=== PATIENT | female | born 1935 | race Caucasian/White ===

== ENCOUNTER 2020-05-24 09:32 | Outpatient (REF) | payer MEDICARE, SELFPAY ==
[2020-05-24 10:57] LABS: Alanine Aminotransferase 33 U/L (0-31); Anion Gap 12 (12-20); Aspartate Amino Transferase 33 U/L (5-31); Blood Urea Nitrogen 17 mg/dL (9-16); Calcium 9.5 mg/dL (8.4-10.2); Carbon Dioxide 33 mmol/L (22-29); Chloride 96 mmol/L (96-108); Cholesterol 195 mg/dL; Estimated Glomerular Filt Rate > 60; Glucose Fasting 119 mg/dL (60-99); HDL Cholesterol 63 mg/dL; LDL Cholesterol Calculated 112 mg/dl; Potassium 3.6 mmol/L (3.3-5.1); Sodium 137 mmol/L (135-145); Triglycerides 102 mg/dL
[2020-05-24 11:05] LABS: Free T4 (Free Thyroxine) 1.29 ng/dL (0.71-1.85); Thyroid Stimulating Hormone 3.63 uIU/mL (0.32-4.0)
== END 2020-05-24 09:33 | disposition home or self-care (01) ==
LOC: HO.10HDL 09:32
PROVIDERS: Absent Provider Internal Medicine Hypertension Specialist; Visit Provider Internal Medicine
DX: R03.0 Elevated blood-pressure reading, without diagnosis of hypertension (principal); E03.9 Hypothyroidism, unspecified; M85.80 Other specified disorders of bone density and structure, unspecified site; E78.00 Pure hypercholesterolemia, unspecified
CPT/HCPCS: 36415; 80048; 80061; 84439; 84443; 84450; 84460

== ENCOUNTER 2020-08-31 08:52 | Outpatient (REF) | payer MEDICARE, SELFPAY ==
--- NOTE | ~2020-08-31 | MM_ITS ---
EXAMINATION: MM SCREENING DIGITAL BREAST TOMOSYNTHESIS, BILATERAL CLINICAL INFORMATION: Screening. Asymptomatic. The lifetime risk of breast cancer based on the Tyrer-Cuzick Model is 1%. COMPARISON: Mammography: 01/04/2020, 04/30/2018, 04/03/2017 TECHNIQUE: Digital breast tomosynthesis is performed in both the craniocaudal and mediolateral oblique views along with computer-aided detection (CAD). Synthesized 2D images are generated from the tomosynthesis. Additional bilateral MLO views and exaggerated right CC view are provided. FINDINGS: There are scattered areas of fibroglandular density (ACR BI-RADS breast composition Category b). There are no significant masses, abnormal calcifications, or other abnormalities. There is a pacemaker generator overlying the upper left axilla. Parenchymal pattern is similar to prior studies. No developing density. No significant changes. MM/MM tomosynthesis screening BI IMPRESSION: No mammographic evidence of malignancy. ASSESSMENT: BI-RADS 1: Negative RECOMMENDATION: Routine annual mammography screening. This patient's information was entered into a reminder system with a target due date for their next mammogram.
== END 2020-08-31 08:53 | disposition home or self-care (01) ==
LOC: HO.MAMMO 08:52
PROVIDERS: PCP Internal Medicine; Visit Provider Internal Medicine
DX: Z12.31 Encounter for screening mammogram for malignant neoplasm of breast (principal)
CPT/HCPCS: 77063; 77067

== ENCOUNTER 2020-09-29 09:10 | Outpatient (REF) | payer MEDICARE, SELFPAY ==
[2020-09-29 10:53] LABS: Estimated Average Glucose 128 mg/dL; Hemoglobin A1c % 6.1 %
[2020-09-29 11:01] LABS: Alanine Aminotransferase 22 U/L (0-31); Anion Gap 13 (12-20); Aspartate Amino Transferase 32 U/L (5-31); Blood Urea Nitrogen 14 mg/dL (9-16); Calcium 9.8 mg/dL (8.4-10.2); Carbon Dioxide 31 mmol/L (22-29); Chloride 97 mmol/L (96-108); Cholesterol 169 mg/dL; Estimated Glomerular Filt Rate > 60; Glucose Fasting 109 mg/dL (60-99); HDL Cholesterol 65 mg/dL; LDL Cholesterol Calculated 86 mg/dl; Potassium 4.1 mmol/L (3.3-5.1); Sodium 137 mmol/L (135-145); Triglycerides 92 mg/dL
[2020-09-29 11:24] LABS: Free T4 (Free Thyroxine) 1.19 ng/dL (0.71-1.85); Vitamin D 25-OH Total 40.2 ng/mL (>30)
== END 2020-09-29 09:11 | disposition home or self-care (01) ==
LOC: HO.10HDL 09:10
PROVIDERS: Visit Provider Internal Medicine
DX: E03.9 Hypothyroidism, unspecified (principal); E78.00 Pure hypercholesterolemia, unspecified; I10 Essential (primary) hypertension; I48.19 Other persistent atrial fibrillation; I49.5 Sick sinus syndrome; M85.80 Other specified disorders of bone density and structure, unspecified site
CPT/HCPCS: 36415; 80048; 80061; 82306; 83036; 84439; 84443; 84450; 84460

== ENCOUNTER 2020-10-01 08:44 | Outpatient (REF) | payer MEDICARE, SELFPAY ==
--- NOTE | ~2020-10-01 | MM_ITS ---
EXAMINATION: BONE DENSITOMETRY CLINICAL INDICATION: Osteopenia. COMPARISON: Previous BD dated 07/25/2016 and baseline BD dated 08/28/2007. TECHNIQUE: Using a [employer] DXA System (software version: 13.1) manufactured by [employer], dual-energy x-ray absorptiometry was performed of the lumbar spine and right hip. Patient with left hip replacement. The images are of good technical quality. Summary results are attached. FINDINGS: AP SPINE L1-L4: Current: BMD 1.186 g/cm2, Z-score 1.9, T-score 0.0, normal, 7.1% increase from previous, 19.0% increase from baseline (<5% change is not significant). Prior: BMD 1.107 g/cm2. Baseline: BMD 0.997 g/cm2. RIGHT FEMUR, NECK: Current: BMD 0.875 g/cm2, Z-score 1.1, T-score -1.2, osteopenia. Prior: BMD 0.906 g/cm2. Baseline: BMD 0.818 g/cm2. RIGHT FEMUR, TOTAL: Current: BMD 0.976 g/cm2, Z-score 1.9, T-score -0.3, normal, 1.0% increase from previous, 7.1% increase from baseline (<5% change is not significant). Prior: BMD 0.966 g/cm2. Baseline: BMD 0.911 g/cm2. IDENTIFIED RISK FACTORS: Menopause, height loss, low calcium intake, Thiazide. HISTORY OF FRACTURE: None listed. MEDICATIONS: Calcium, vitamin D. MM/XR DEXA axial skeleton IMPRESSION: 1. DIAGNOSIS: Osteopenia based on the lowest T-score value of -1.2 in the femoral neck applying World Health Organization criteria. 2. 10-YEAR FRACTURE RISK PREDICTION, FRAX: Major osteoporotic fracture (clinical spine, forearm, hip or shoulder) 12.3%. Hip fracture 2.9%. 3. Treatment Recommendations: NOF guidelines recommend consideration for treatment in postmenopausal women and men age 50 and older presenting with the following: -A hip or vertebral (clinical or morphometric) fracture. -T-score less than or equal to -2.5 at the femoral neck or spine after appropriate evaluation to exclude secondary causes. -Low bone mass at the hip or spine and a 10-year fracture probability by FRAX of greater than or equal to 3% for hip fracture or greater than or equal to 20% for major osteoporotic fracture based on the [place] adapted WHO algorithm. 4. Other Recommendations: All treatment decisions require clinical judgment and consideration of individual patient factors, including patient preferences, comorbidities, previous drug use, risk factors not captured in the FRAX model (e.g. frailty, falls, vitamin D deficiency, increased bone turnover, interval significant decline in bone density) and possible under or overestimation of fracture risk by FRAX. Additional medical evaluation for secondary cause of low bone mineral density may be appropriate. FUTURE SCAN RECOMMENDATION: People with diagnosed cases of osteoporosis or at high risk for fracture should have regular bone mineral density tests. For patients eligible for Medicare, routine testing is allowed once every 2 years. The testing frequency can be increased to one year for patients who have rapidly progressing disease, those who are receiving or discontinuing medical therapy to restore bone mass, or have additional risk factors.
== END 2020-10-01 08:45 | disposition home or self-care (01) ==
LOC: HO.MAMMO 08:44
PROVIDERS: PCP Internal Medicine; Visit Provider Internal Medicine
DX: Z13.820 Encounter for screening for osteoporosis (principal); M85.80 Other specified disorders of bone density and structure, unspecified site; Z78.0 Asymptomatic menopausal state; Z79.899 Other long term (current) drug therapy
CPT/HCPCS: 77080

== ENCOUNTER 2021-01-20 11:27 | Outpatient (REF) | payer MEDICARE, SELFPAY ==
[2021-01-20 14:15] LABS: Anion Gap 14 (12-20); Blood Urea Nitrogen 11 mg/dL (9-16); Calcium 9.5 mg/dL (8.4-10.2); Carbon Dioxide 30 mmol/L (22-29); Chloride 97 mmol/L (96-108); Estimated Glomerular Filt Rate > 60; Potassium 3.6 mmol/L (3.3-5.1); Sodium 137 mmol/L (135-145)
== END 2021-01-20 11:28 | disposition home or self-care (01) ==
LOC: HO.10HDL 11:27
PROVIDERS: Visit Provider Internal Medicine Hypertension Specialist
DX: I10 Essential (primary) hypertension (principal)
CPT/HCPCS: 36415; 80051; 82310; 82565; 84520

== ENCOUNTER 2021-03-03 10:27 | Outpatient (REF) | payer MEDICARE, SELFPAY ==
[2021-03-03 14:35] LABS: Anion Gap 12 (12-20); Blood Urea Nitrogen 21 mg/dL (9-16); Calcium 9.7 mg/dL (8.4-10.2); Carbon Dioxide 29 mmol/L (22-29); Chloride 99 mmol/L (96-108); Estimated Glomerular Filt Rate 57; Potassium 4.5 mmol/L (3.3-5.1); Sodium 135 mmol/L (135-145)
== END 2021-03-03 10:28 | disposition home or self-care (01) ==
LOC: HO.10HDL 10:27
PROVIDERS: Visit Provider Internal Medicine Hypertension Specialist
DX: I10 Essential (primary) hypertension (principal)
CPT/HCPCS: 36415; 80051; 82310; 82565; 84520

== ENCOUNTER 2021-05-25 10:04 | Outpatient (REF) | payer MEDICARE, SELFPAY ==
[2021-05-25 14:17] LABS: Anion Gap 15 (12-20); Blood Urea Nitrogen 20 mg/dL (9-16); Calcium 9.9 mg/dL (8.4-10.2); Carbon Dioxide 28 mmol/L (22-29); Chloride 97 mmol/L (96-108); Estimated Glomerular Filt Rate 47; Glucose Random 103 mg/dL (60-115); Potassium 5.3 mmol/L (3.3-5.1); Sodium 135 mmol/L (135-145)
== END 2021-05-25 10:05 | disposition home or self-care (01) ==
LOC: HO.10HDL 10:04
PROVIDERS: Visit Provider Internal Medicine Hypertension Specialist
DX: I10 Essential (primary) hypertension (principal)
CPT/HCPCS: 36415; 80048

== ENCOUNTER 2021-06-08 10:44 | Outpatient (REF) | payer MEDICARE, SELFPAY ==
[2021-06-08 13:49] LABS: MANUAL DIFF FLAG NO
[2021-06-08 13:53] LABS: Appearance Urine CLEAR; Color Urine YELLOW; Glucose Urine UA NEG (NEG); Leukocyte Esterase Urine TRACE (NEG); Nitrite Urine NEG (NEG); Urine Blood NEG (NEG); Urine Ketones NEG (NEG); Urine Protein TRACE MG/DL (NEG-TRACE)
[2021-06-08 13:58] LABS: Basophils Absolute Auto 0.1 X10*3/uL (0.0-0.2); Basophils Percent Auto 1.2 % (0-2); Eosinophils Absolute Auto 0.1 X10*3/uL (0.0-0.4); Hematocrit 46.4 % (37.0-47.0); Hemoglobin 15.5 g/dl (12.0-16.0); Imm Gran Abs Auto 0.03 X10*3/uL (0.00-0.03); Imm Gran Pct Auto 0.4 % (0.0-0.4); Lymphocytes Absolute Auto 1.8 X10*3/uL (1.2-4.9); Lymphocytes Percent Auto 26.7 % (20-40); Mean Corpuscular HGB Conc 33.4 g/dl (31.0-35.0); Mean Corpuscular Hemoglobin 31.4 pg (27.0-33.0); Mean Corpuscular Volume 93.9 fL (80.0-98.0); Mean Platelet Volume 10.2 fL (9.4-12.3); Monocytes Absolute Auto 0.7 X10*3/uL (0.1-1.2); Monocytes Percent Auto 10.4 % (2-11); Neutrophils Absolute Auto 4.1 x10*3/uL (2.0-8.3); Neutrophils Percent Auto 59.3 % (45-73); Platelet Count 258 X10*3/uL (160-400); Red Blood Count 4.94 X10*6/uL (4.20-5.50); Red Cell Distribution Width 14.1 % (11.0-16.0); White Blood Count 6.9 X10*3/uL (4.8-10.8)
[2021-06-08 14:08] LABS: Bacteria Urine TRACE /LPF; RBC Urine 0 /HPF (0); Squamous Epithelial Cell Urine 1+ /LPF
[2021-06-08 14:20] LABS: Anion Gap 12 (12-20); Blood Urea Nitrogen 26 mg/dL (9-16); Calcium 9.8 mg/dL (8.4-10.2); Carbon Dioxide 29 mmol/L (22-29); Chloride 99 mmol/L (96-108); Estimated Glomerular Filt Rate 46; Potassium 4.5 mmol/L (3.3-5.1); Sodium 135 mmol/L (135-145)
[2021-06-08 14:31] LABS: Creatinine Urine 188.76 mg/dL; Microalbum/Creatinine Ratio Ur 12.1 ug/mg cr; Protein/Creatinine Ratio, Ur 0.08 (<0.2); Total Protein Urine Random 16 mg/dL (<12)
[2021-06-08 14:34] LABS: Vitamin D 25-OH Total 38.3 ng/mL (>30)
== END 2021-06-08 10:45 | disposition home or self-care (01) ==
LOC: HO.10HDL 10:44
PROVIDERS: Visit Provider Internal Medicine Hypertension Specialist
DX: E03.9 Hypothyroidism, unspecified (principal)
CPT/HCPCS: 36415; 80051; 81001; 82043; 82306; 82310; 82565; 84156; 84520; 85025; 87086

== ENCOUNTER 2021-07-01 15:55 | Outpatient (REF) | payer MEDICARE, SELFPAY ==
--- NOTE | ~2021-07-01 | XR_ITS ---
EXAMINATION: LEFT HAND AND WRIST CLINICAL INFORMATION: Pain COMPARISON: None TECHNIQUE: 3 views of the left hand and wrist FINDINGS: There is a transverse impacted fracture of the left distal radius. There is dorsal angulation of the distal radius with respect to the more proximal shaft. There is an ulnar styloid fracture. There is arthritis at the IP joints. There is soft tissue swelling over the wrist. XR/XR hand wrist LT IMPRESSION: Left distal radius and ulnar styloid fractures.
== END 2021-07-01 15:56 | disposition home or self-care (01) ==
LOC: HO.HMGCX 15:55
PROVIDERS: Visit Provider Physician Assistant Medical
DX: M25.532 Pain in left wrist (principal)
CPT/HCPCS: 73110; 73130

== ENCOUNTER 2021-08-03 09:14 | Outpatient (REF) | payer MEDICARE, SELFPAY ==
[2021-08-03 10:29] LABS: Hematocrit 44.8 % (37.0-47.0); Hemoglobin 14.6 g/dl (12.0-16.0); Mean Corpuscular HGB Conc 32.6 g/dl (31.0-35.0); Mean Corpuscular Hemoglobin 31.7 pg (27.0-33.0); Mean Corpuscular Volume 97.4 fL (80.0-98.0); Mean Platelet Volume 9.9 fL (9.4-12.3); Platelet Count 270 X10*3/uL (160-400); Red Cell Distribution Width 14.3 % (11.0-16.0); White Blood Count 6.9 X10*3/uL (4.8-10.8)
[2021-08-03 10:43] LABS: Alanine Aminotransferase 22 U/L (0-31); Albumin Level 4.2 g/dL (3.5-5.0); Alkaline Phosphatase 78 U/L (39-117); Anion Gap 14 (12-20); Aspartate Amino Transferase 29 U/L (5-31); Bilirubin Total 1.2 mg/dL (0.0-1.0); Blood Urea Nitrogen 21 mg/dL (9-16); Calcium 9.8 mg/dL (8.4-10.2); Carbon Dioxide 27 mmol/L (22-29); Chloride 98 mmol/L (96-108); Cholesterol 165 mg/dL; Estimated Glomerular Filt Rate 40; Glucose Fasting 112 mg/dL (60-99); HDL Cholesterol 56 mg/dL; LDL Cholesterol Calculated 92 mg/dl; Potassium 4.4 mmol/L (3.3-5.1); Sodium 135 mmol/L (135-145); Total Protein 7.3 g/dL (6.5-8.0); Triglycerides 87 mg/dL
[2021-08-03 10:53] LABS: Creatinine Urine 240.46 mg/dL; Microalbum/Creatinine Ratio Ur 29.9 ug/mg cr
[2021-08-03 11:02] LABS: TSH reflex Free T4 2.82 uIU/mL (0.32-4.0)
[2021-08-03 11:10] LABS: Estimated Average Glucose 126 mg/dL
== END 2021-08-03 09:15 | disposition home or self-care (01) ==
LOC: HO.10HDL 09:14
PROVIDERS: Visit Provider Physician Assistant
DX: I10 Essential (primary) hypertension (principal); E03.9 Hypothyroidism, unspecified; E78.00 Pure hypercholesterolemia, unspecified; R73.01 Impaired fasting glucose
CPT/HCPCS: 36415; 80053; 80061; 82043; 83036; 84443; 85027

== ENCOUNTER 2021-10-10 09:27 | Outpatient (REF) | payer MEDICARE, SELFPAY ==
[2021-10-10 10:47] LABS: Hematocrit 45.9 % (37.0-47.0); Hemoglobin 15.1 g/dl (12.0-16.0); Mean Corpuscular HGB Conc 32.9 g/dl (31.0-35.0); Mean Corpuscular Hemoglobin 31.5 pg (27.0-33.0); Mean Corpuscular Volume 95.6 fL (80.0-98.0); Mean Platelet Volume 9.7 fL (9.4-12.3); Platelet Count 252 X10*3/uL (160-400); Red Cell Distribution Width 12.7 % (11.0-16.0); White Blood Count 5.6 X10*3/uL (4.8-10.8)
[2021-10-10 10:56] LABS: Estimated Average Glucose 128 mg/dL; Hemoglobin A1c % 6.1 %
[2021-10-10 11:06] LABS: Alanine Aminotransferase 22 U/L (0-31); Albumin Level 4.3 g/dL (3.5-5.0); Alkaline Phosphatase 80 U/L (39-117); Anion Gap 11 (12-20); Aspartate Amino Transferase 29 U/L (5-31); Blood Urea Nitrogen 24 mg/dL (9-16); Calcium 9.7 mg/dL (8.4-10.2); Carbon Dioxide 28 mmol/L (22-29); Chloride 99 mmol/L (96-108); Cholesterol 184 mg/dL; Estimated Glomerular Filt Rate 42; Glucose Fasting 112 mg/dL (60-99); HDL Cholesterol 56 mg/dL; LDL Cholesterol Calculated 109 mg/dl; Potassium 4.4 mmol/L (3.3-5.1); Sodium 134 mmol/L (135-145); Total Protein 7.4 g/dL (6.5-8.0); Triglycerides 98 mg/dL
[2021-10-10 11:30] LABS: TSH reflex Free T4 2.22 uIU/mL (0.32-4.0)
== END 2021-10-10 09:28 | disposition home or self-care (01) ==
LOC: HO.10HDL 09:27
PROVIDERS: Absent Provider Internal Medicine Hypertension Specialist; Visit Provider Physician Assistant
DX: E03.9 Hypothyroidism, unspecified (principal); E78.00 Pure hypercholesterolemia, unspecified; I10 Essential (primary) hypertension
CPT/HCPCS: 36415; 80053; 80061; 83036; 84443; 85027

== ENCOUNTER 2021-10-11 09:40 | Outpatient (REF) | payer MEDICARE, SELFPAY ==
[2021-10-11 10:44] LABS: MANUAL DIFF FLAG NO
[2021-10-11 10:53] LABS: Basophils Percent Auto 0.8 % (0-2); Eosinophils Absolute Auto 0.2 X10*3/uL (0.0-0.4); Hematocrit 44.8 % (37.0-47.0); Hemoglobin 14.9 g/dl (12.0-16.0); Imm Gran Abs Auto 0.02 X10*3/uL (0.00-0.03); Imm Gran Pct Auto 0.4 % (0.0-0.4); Lymphocytes Absolute Auto 1.6 X10*3/uL (1.2-4.9); Lymphocytes Percent Auto 30.6 % (20-40); Mean Corpuscular HGB Conc 33.3 g/dl (31.0-35.0); Mean Corpuscular Hemoglobin 31.8 pg (27.0-33.0); Mean Corpuscular Volume 95.5 fL (80.0-98.0); Mean Platelet Volume 9.8 fL (9.4-12.3); Monocytes Absolute Auto 0.6 X10*3/uL (0.1-1.2); Monocytes Percent Auto 11.9 % (2-11); Neutrophils Absolute Auto 2.7 x10*3/uL (2.0-8.3); Neutrophils Percent Auto 53.3 % (45-73); Platelet Count 232 X10*3/uL (160-400); Red Blood Count 4.69 X10*6/uL (4.20-5.50); Red Cell Distribution Width 12.7 % (11.0-16.0); White Blood Count 5.1 X10*3/uL (4.8-10.8)
[2021-10-11 11:41] LABS: Anion Gap 12 (12-20); Blood Urea Nitrogen 20 mg/dL (9-16); Calcium 9.5 mg/dL (8.4-10.2); Carbon Dioxide 28 mmol/L (22-29); Chloride 99 mmol/L (96-108); Estimated Glomerular Filt Rate 47; Potassium 4.6 mmol/L (3.3-5.1); Sodium 134 mmol/L (135-145)
[2021-10-11 14:00] LABS: Appearance Urine CLEAR; Color Urine YELLOW; Glucose Urine UA NEG (NEG); Leukocyte Esterase Urine 1+ (NEG); Nitrite Urine NEG (NEG); Urine Blood TRACE (NEG); Urine Ketones NEG (NEG); Urine Protein NEG (NEG-TRACE)
[2021-10-11 14:18] LABS: Renal Epithelial Cells Urine TRACE /LPF; Squamous Epithelial Cell Urine TRACE /LPF
[2021-10-11 14:20] LABS: RBC Urine 0 /HPF (0)
[2021-10-11 14:25] LABS: Creatinine Urine 188.61 mg/dL; Protein/Creatinine Ratio, Ur 0.08 (<0.2); Total Protein Urine Random 16 mg/dL (<12)
== END 2021-10-11 09:41 | disposition home or self-care (01) ==
LOC: HO.10HDL 09:40
PROVIDERS: Visit Provider Internal Medicine Hypertension Specialist
DX: N18.32 Chronic kidney disease, stage 3b (principal)
CPT/HCPCS: 36415; 80051; 81001; 82043; 82310; 82565; 84156; 84520; 85025

== ENCOUNTER 2022-03-21 09:41 | Outpatient (REF) | payer MEDICARE, SELFPAY ==
[2022-03-21 10:36] LABS: Hematocrit 44.5 % (37.0-47.0); Hemoglobin 14.5 g/dl (12.0-16.0); Mean Corpuscular HGB Conc 32.6 g/dl (31.0-35.0); Mean Corpuscular Hemoglobin 30.5 pg (27.0-33.0); Mean Corpuscular Volume 93.5 fL (80.0-98.0); Mean Platelet Volume 9.8 fL (9.4-12.3); Platelet Count 248 X10*3/uL (160-400); Red Blood Count 4.76 X10*6/uL (4.20-5.50); Red Cell Distribution Width 13.6 % (11.0-16.0); White Blood Count 5.5 X10*3/uL (4.8-10.8)
[2022-03-21 11:46] LABS: Alanine Aminotransferase 24 U/L (0-31); Albumin Level 4.1 g/dL (3.5-5.0); Alkaline Phosphatase 67 U/L (39-117); Anion Gap 12 (12-20); Aspartate Amino Transferase 31 U/L (5-31); Blood Urea Nitrogen 20 mg/dL (9-16); Calcium 9.4 mg/dL (8.4-10.2); Carbon Dioxide 28 mmol/L (22-29); Chloride 101 mmol/L (96-108); Cholesterol 169 mg/dL; Estimated Glomerular Filt Rate 48; Glucose Fasting 111 mg/dL (60-99); HDL Cholesterol 56 mg/dL; LDL Cholesterol Calculated 95 mg/dl; Potassium 4.3 mmol/L (3.3-5.1); Sodium 137 mmol/L (135-145); Triglycerides 94 mg/dL
[2022-03-21 12:00] LABS: TSH reflex Free T4 2.71 uIU/mL (0.32-4.0)
[2022-03-21 12:48] LABS: Bilirubin Total 1.1 mg/dL (0.0-1.0)
[2022-03-21 15:04] LABS: Creatinine Urine 264.48 mg/dL; Microalbum/Creatinine Ratio Ur 35.5 ug/mg cr; Total Protein Urine Random 28 mg/dL (<12)
== END 2022-03-21 09:42 | disposition home or self-care (01) ==
LOC: HO.10HDL 09:41
PROVIDERS: Absent Provider Internal Medicine Hypertension Specialist; Visit Provider Physician Assistant
DX: I12.9 Hypertensive chronic kidney disease with stage 1 through stage 4 chronic kidney disease, or unspecified chronic kidney disease (principal); N18.32 Chronic kidney disease, stage 3b; E78.00 Pure hypercholesterolemia, unspecified; I48.19 Other persistent atrial fibrillation
CPT/HCPCS: 36415; 80053; 80061; 82043; 84156; 84443; 85027

== ENCOUNTER 2022-04-19 09:19 | Outpatient (REF) | payer MEDICARE, SELFPAY ==
--- NOTE | ~2022-04-19 | MM_ITS ---
EXAMINATION: MM SCREENING DIGITAL BREAST TOMOSYNTHESIS, BILATERAL CLINICAL INFORMATION: Screening. Asymptomatic. COMPARISON: Mammography: August 31, 2020 and studies dating back to February 23, 2015 TECHNIQUE: Digital breast tomosynthesis is performed in both the craniocaudal and mediolateral oblique views along with computer-aided detection (CAD). Synthesized 2D images are generated from the tomosynthesis. FINDINGS: The breasts are heterogeneously dense, which may obscure small masses (ACR BI-RADS breast composition Category c). There are no significant masses, abnormal calcifications, or other abnormalities. MM/MM tomosynthesis screening BI IMPRESSION: No significant changes ASSESSMENT: BI-RADS 1: Negative RECOMMENDATION: Routine annual mammography screening. This patient's information was entered into a reminder system with a target due date for their next mammogram.
== END 2022-04-19 09:20 | disposition home or self-care (01) ==
LOC: HO.MAMMO 09:19
PROVIDERS: PCP Physician Assistant; Visit Provider Physician Assistant
DX: Z12.31 Encounter for screening mammogram for malignant neoplasm of breast (principal)
CPT/HCPCS: 77063; 77067

== ENCOUNTER 2022-05-23 11:58 | Outpatient (REF) | payer MEDICARE, SELFPAY ==
[2022-05-23 12:20] LABS: COVID-19 Test Positive (Negative); IDNOW Serial# 16C4AD1C
== END 2022-05-23 11:59 | disposition home or self-care (01) ==
LOC: HO.LAB 11:58
PROVIDERS: Visit Provider Internal Medicine
DX: Z20.822 Contact with and (suspected) exposure to COVID-19 (principal)
CPT/HCPCS: 87635; C9803

== ENCOUNTER 2022-08-02 09:45 | Outpatient (REF) | payer MEDICARE, SELFPAY ==
[2022-08-02 13:48] LABS: Hematocrit 47.2 % (37.0-47.0); Hemoglobin 15.6 g/dl (12.0-16.0); Mean Corpuscular HGB Conc 33.1 g/dl (31.0-35.0); Mean Corpuscular Hemoglobin 31.2 pg (27.0-33.0); Mean Corpuscular Volume 94.4 fL (80.0-98.0); Mean Platelet Volume 10.5 fL (9.4-12.3); Platelet Count 254 X10*3/uL (160-400); Red Cell Distribution Width 13.9 % (11.0-16.0); White Blood Count 6.3 X10*3/uL (4.8-10.8)
[2022-08-02 14:20] LABS: Alanine Aminotransferase 28 U/L (0-31); Albumin Level 4.1 g/dL (3.5-5.0); Alkaline Phosphatase 68 U/L (39-117); Anion Gap 9 (12-20); Aspartate Amino Transferase 31 U/L (5-31); Bilirubin Total 1.2 mg/dL (0.0-1.0); Blood Urea Nitrogen 22 mg/dL (9-16); Calcium 9.7 mg/dL (8.4-10.2); Carbon Dioxide 32 mmol/L (22-29); Chloride 101 mmol/L (96-108); Cholesterol 182 mg/dL; Estimated Glomerular Filt Rate 49; Glucose Fasting 98 mg/dL (60-99); HDL Cholesterol 55 mg/dL; LDL Cholesterol Calculated 105 mg/dl; Potassium 4.5 mmol/L (3.3-5.1); Sodium 137 mmol/L (135-145); Triglycerides 110 mg/dL
[2022-08-02 14:30] LABS: Creatinine Urine 88.16 mg/dL; Microalbum/Creatinine Ratio Ur 43.1 ug/mg cr
[2022-08-02 14:34] LABS: TSH reflex Free T4 3.22 uIU/mL (0.32-4.0)
== END 2022-08-02 09:46 | disposition home or self-care (01) ==
LOC: HO.10HDL 09:45
PROVIDERS: Visit Provider Physician Assistant
DX: E03.9 Hypothyroidism, unspecified (principal); I10 Essential (primary) hypertension; E78.00 Pure hypercholesterolemia, unspecified
CPT/HCPCS: 36415; 80053; 80061; 82043; 84443; 85027

== ENCOUNTER 2022-09-15 10:33 | Outpatient (REF) | payer MEDICARE, SELFPAY ==
[2022-09-15 13:28] LABS: MANUAL DIFF FLAG NO
[2022-09-15 13:33] LABS: Appearance Urine Hazy; Color Urine Yellow; Glucose Urine UA Negative (Negative); Leukocyte Esterase Urine Moderate (2+) (Negative); Nitrite Urine Negative (Negative); Specific Gravity - Urine 1.015 (1.005-1.025); UMIC TRIGGER UA YES; Urine Blood Negative (Negative); Urine Ketones Negative (Negative); Urine Protein Negative (Neg-Trace)
[2022-09-15 13:34] LABS: Basophils Absolute Auto 0.1 X10*3/uL (0.0-0.2); Basophils Percent Auto 1.2 % (0-2); Eosinophils Absolute Auto 0.2 X10*3/uL (0.0-0.4); Eosinophils Percent Auto 3.5 % (0-4); Hematocrit 46.6 % (37.0-47.0); Hemoglobin 15.3 g/dl (12.0-16.0); Imm Gran Abs Auto 0.02 X10*3/uL (0.00-0.03); Imm Gran Pct Auto 0.3 % (0.0-0.4); Lymphocytes Percent Auto 32.7 % (20-40); Mean Corpuscular HGB Conc 32.8 g/dl (31.0-35.0); Mean Corpuscular Hemoglobin 30.7 pg (27.0-33.0); Mean Corpuscular Volume 93.4 fL (80.0-98.0); Mean Platelet Volume 10.3 fL (9.4-12.3); Monocytes Absolute Auto 0.7 X10*3/uL (0.1-1.2); Monocytes Percent Auto 11.2 % (2-11); Neutrophils Absolute Auto 3.1 x10*3/uL (2.0-8.3); Neutrophils Percent Auto 51.1 % (45-73); Platelet Count 243 X10*3/uL (160-400); Red Blood Count 4.99 X10*6/uL (4.20-5.50); Red Cell Distribution Width 13.5 % (11.0-16.0)
[2022-09-15 13:42] LABS: Bacteria Urine None Seen (None Seen); Hyaline Casts Urine 0-2 /LPF (0-2); RBC Urine 0-2 /HPF (0-2); Renal Epithelial Cells Urine Present; Squamous Epithelial Cell Urine 0-2 /HPF (0-2)
[2022-09-15 13:51] LABS: Creatinine Urine 148.59 mg/dL; Microalbum/Creatinine Ratio Ur 16.1 ug/mg cr; Total Protein Urine Random 15 mg/dL (<12)
[2022-09-15 14:05] LABS: Anion Gap 15 (12-20); Blood Urea Nitrogen 26 mg/dL (9-16); Calcium 10.2 mg/dL (8.4-10.2); Carbon Dioxide 27 mmol/L (22-29); Chloride 98 mmol/L (96-108); Estimated Glomerular Filt Rate 43; Glucose Random 113 mg/dL (60-115); Potassium 4.5 mmol/L (3.3-5.1); Sodium 135 mmol/L (135-145)
== END 2022-09-15 10:34 | disposition home or self-care (01) ==
LOC: HO.10HDL 10:33
PROVIDERS: Visit Provider Internal Medicine Hypertension Specialist
DX: I12.9 Hypertensive chronic kidney disease with stage 1 through stage 4 chronic kidney disease, or unspecified chronic kidney disease (principal); N18.32 Chronic kidney disease, stage 3b
CPT/HCPCS: 36415; 80048; 81001; 82043; 84156; 85025

== ENCOUNTER 2023-01-31 09:42 | Outpatient (REF) | payer MEDICARE, SELFPAY ==
[2023-01-31 10:27] LABS: Hematocrit 47.8 % (37.0-47.0); Hemoglobin 15.8 g/dl (12.0-16.0); Mean Corpuscular HGB Conc 33.1 g/dl (31.0-35.0); Mean Corpuscular Hemoglobin 31.5 pg (27.0-33.0); Mean Corpuscular Volume 95.2 fL (80.0-98.0); Platelet Count 253 X10*3/uL (160-400); Red Blood Count 5.02 X10*6/uL (4.20-5.50); Red Cell Distribution Width 14.2 % (11.0-16.0); White Blood Count 6.3 X10*3/uL (4.8-10.8)
[2023-01-31 10:50] LABS: Alanine Aminotransferase 24 U/L (0-31); Albumin Level 4.3 g/dL (3.5-5.0); Alkaline Phosphatase 73 U/L (39-117); Anion Gap 15 (12-20); Aspartate Amino Transferase 36 U/L (5-31); Bilirubin Total 1.1 mg/dL (0.0-1.0); Blood Urea Nitrogen 27 mg/dL (9-16); Calcium 10.3 mg/dL (8.4-10.2); Carbon Dioxide 27 mmol/L (22-29); Chloride 98 mmol/L (96-108); Cholesterol 170 mg/dL (<200); Estimated Glomerular Filt Rate 40; Glucose Fasting 123 mg/dL (60-99); HDL Cholesterol 58 mg/dL (>40); LDL Cholesterol Calculated 92 mg/dL (<100); Potassium 4.3 mmol/L (3.3-5.1); Sodium 136 mmol/L (135-145); Total Protein 8.1 g/dL (6.5-8.0); Triglycerides 101 mg/dL (<150)
[2023-01-31 10:58] LABS: B Type Natriuretic Peptide 209 pg/mL (<100)
[2023-01-31 11:07] LABS: Creatinine Urine 180.33 mg/dL
[2023-01-31 11:09] LABS: TSH reflex Free T4 3.16 uIU/mL (0.32-4.0)
== END 2023-01-31 09:43 | disposition home or self-care (01) ==
LOC: HO.10HDL 09:42
PROVIDERS: Referring Provider Internal Medicine Hypertension Specialist; Visit Provider Physician Assistant
DX: I10 Essential (primary) hypertension (principal); E03.9 Hypothyroidism, unspecified; E78.00 Pure hypercholesterolemia, unspecified; I48.19 Other persistent atrial fibrillation
CPT/HCPCS: 36415; 80053; 80061; 82043; 82570; 83880; 84443; 85027

== ENCOUNTER 2023-02-13 10:55 | Outpatient (AMB) | payer MEDICARE, SELFPAY ==
--- NOTE | 2023-02-13 11:05 | HO.NEPHOV_ITS ---
HPI HPI Comments History of Present Illness Details Vonnie elderly woman well known to me. She has a history of hypertension with superimposed white coat effect. She has been monitoring her blood pressure at home. Overall blood pressure seems well controlled at home. In fact some of the readings are rather low and worrisome. She is on both Aldactazide 08/19/2024 and hydrochlorothiazide 25 mg once a day along with other medications. No specific complaints today [facility] Medical History Acquired hypothyroidism Actinic keratosis Essential hypertension Hyperlipidemia Need for prophylactic antibiotic Osteoarthritis of hips, bilateral Osteopenia after menopause Persistent atrial fibrillation Sick sinus syndrome Surgical History Status post total hip replacement, left History of tonsillectomy Cardiac pacemaker Family History Father Medical history non-contributory Mother Medical history non-contributory Tuberculosis Sister Tuberculosis Son No problems noted. Daughter No problems noted. Son No problems noted. Social History Household Members: None Housing: House Alcohol intake: never Patient Tobacco Use Status: Never used Tobacco e-Cigarette/Vaping Use: Never Used Second Hand Smoke Exposure: No service: No Current occupational status: previously employed and retired Cognitive needs: No Hearing needs: No Vision needs: Yes Vital Signs 02/13/23 11:06 Height 5 ft 1 in Weight 159 lb BMI 30.0 BP 170/96 H Blood Pressure Location Rt brachial Position Sitting Pulse 85 Pulse Source Palpation Physical Exam Vital Signs: Last Vital Signs Pulse 85 02/13/23 11:06 BP 170/96 H 02/13/23 11:06 BMI result Body Mass Index 30.0 Const General: comfortable Nutritional Appearance: well nourished Orientation/consciousness: patient oriented x3 HEENT Head: No normal to inspection Mouth: moist mucous membranes Neck Neck: Yes supple and Yes no JVD Resp Auscultation: clear to auscultation bilaterally, no rales and rub present Cardio Jugular venous distension: no JVD Palpation: no palpable S3 and no palpable S4 Heart sounds: no rubs GI Palpation (GI): Soft to palpation and nontender Percussion: No Fluid wave present General: Yes no CVA tenderness Back/Spine/Pelvis Back: no CVA tenderness Skin General skin exam: no rashes or lesions noted Neuro General: patient oriented x3 Extrem General: Yes no pedal edema and No clubbing Results Reviewed Results Reviewed: Creatinine 1.27 BUN 27. Urine microalbumin creatinine ratio of 36 Assessment & Plan Assessment & Plan (1) Essential hypertension: Code(s): I10 - Essential (primary) hypertension Plan: Elderly woman with the longstanding hypertension with superimposed white coat effect. Based on the home blood pressure readings blood pressure is well controlled. In the office today blood pressure is elevated. She has low readings at home I will discontinue hydrochlorothiazide 25 mg. Continue with Aldactazide 25/25. I have increased her to continue monitoring of blood pressure at home. (2) CKD (chronic kidney disease): Code(s): N18.9 - Chronic kidney disease, unspecified Plan: Vonnie has mild CKD probably due to age-related nephron loss. There could be a component of BOLA due to hypoperfusion from the combination of high-dose of diuretics. I have discontinued the hydrochlorothiazide. Watch serum creatinine. Patient creatinine is around 1.0-1.2 mg/dL. Orders: Orders Electrolytes 6 Months I10 - Essential (primary) hypertension Creatinine 6 Months I10 - Essential (primary) hypertension Blood Urea Nitrogen 6 Months I10 - Essential (primary) hypertension Calcium 6 Months I10 - Essential (primary) hypertension Medications: Discontinued hydrochlorothiazide Discontinued Reason: Doctor's Order 25 mg PO DAILY 90 tabs 3RF Coding Level of Care Code Est Pt Level 4 (20170) Diagnoses Essential hypertension I10 CKD (chronic kidney disease) N18.9
[2023-02-13 11:06] VITALS: BP 170/96; PULSE 85
== END 2023-02-13 11:32 | disposition home or self-care (01) ==
PROVIDERS: PCP Physician Assistant; Visit Provider Internal Medicine Hypertension Specialist
DX: I12.9 Hypertensive chronic kidney disease with stage 1 through stage 4 chronic kidney disease, or unspecified chronic kidney disease (principal); N18.2 Chronic kidney disease, stage 2 (mild)
CPT/HCPCS: 99214

== ENCOUNTER → 2023-02-13 10:55 | Outpatient (BNVA) | payer MEDICARE, SELFPAY | PROVIDERS: PCP Physician Assistant; Visit Provider Internal Medicine Hypertension Specialist | DX: I12.9 Hypertensive chronic kidney disease with stage 1 through stage 4 chronic kidney disease, or unspecified chronic kidney disease (principal); N18.9 Chronic kidney disease, unspecified | CPT/HCPCS: 99212 ==

== ENCOUNTER 2023-02-20 09:22 | Outpatient (AMB) | payer MEDICARE, SELFPAY ==
[2023-02-20 09:29] VITALS: BP 138/90; PULSE 85; O2SAT 95; BMI 29.7
--- NOTE | 2023-02-20 09:29 | MHC.PC.OV ---
Vital Signs 02/20/23 09:29 Height 5 ft 1 in Weight 157 lb 6 oz BMI 29.7 BP 138/90 H Blood Pressure Location Lt brachial Position Sitting Pulse 85 Pulse Source Pulse Oximeter Pulse Oximetry (%) 95 Oxygen Delivery Method Room Air Intake Visit Reasons: f/u AFIB Trust And Estates Attorney Required: No Accompanied by: Self / Same As Patient Allergies cephalexin [Keflex] Allergy (Unknown, Verified 02/20/23 10:21) rash warfarin Allergy (Unknown, Verified 02/20/23 10:21) rash Medication List - Last Reconciled 02/20/23 by Alan Snlel PA-C atorvastatin 20 mg PO DAILY 90 days dabigatran etexilate 150 mg PO BID levothyroxine 25 mcg PO QAM metoprolol succinate ER 200 mg PO DAILY 90 days olmesartan 40 mg PO DAILY 90 days spironolacton-hydrochlorothiaz 25-25 mg 1 tab PO DAILY Tobacco use date assessed: 04/13/22 Fall risk assessment: No Falls in past year Last assessed Fall Risk: 02/20/23 Dental Screening Dental Screen Date: 02/20/23 Did you have a dental visit in the last 12 months?: Yes Did you have a dental problem in the last 6 months where you did not have access to dental care?: No Was dental information given to patient?: Patient has dentist HPI f/u AFIB HPI Details Patient is 88-year-old female here today for a follow-up visit. ? Patient has a complex medical history including hypertension, persistent AFib, hyperlipidemia hypothyroidism, osteoporosis. .. 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 BUN elevated. Blood pressure today in office elevated. She reports home blood pressures are more stable. ? White coat hypertension?.? Otherwise blood pressures have been much better controlled. ,, AFIB and has a pacemaker: Does? see a Airway Controller ( Dr Bolden) at this time.? No overt signs of bleeding. She otherwise denies any dizziness, chest discomfort, headaches or vision issues. .. Hyperlipidemia: Patient continues on moderate-dose statin therapy without side effect. most recent fasting lipid panel showing appropriate total cholesterol and LDL .. Hypothyroidism: Continues on levothyroxine 25 mcg, most recent TSH has been stable. Patient has been clinically and chemically euthyroid. 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 Daughter No problems noted. Son No problems noted. Household Members: None Housing: House Alcohol intake: never Patient Tobacco Use Status: Never used Tobacco e-Cigarette/Vaping Use: Never Used Second Hand Smoke Exposure: No service: No Current occupational status: previously employed and retired Cognitive needs: No Hearing needs: No Vision needs: Yes Questionnaire Thrive Questionnaire Date Thrive assessed: 04/13/22 HANNAH-7 AMB Questionnaire HANNAH-7 Date HANNAH - 7 assessed: 04/13/22 Source: Developed by Drs. Mario Bennett, Anjana Conway, Sesar Kc and colleagues, with an educational chapincito from [email or web address]. Review of Systems Const Denies headache(s) Eyes Denies loss of vision ENT Denies vertigo, Denies dizziness, Denies headache(s) and Denies sore throat Card Denies chest pain, Denies leg edema and Denies lightheadedness Resp Denies cough, Denies hemoptysis and Denies wheezing GI Denies abdominal pain, Denies melena, Denies constipation, Denies diarrhea and Denies vomiting Denies urinary frequency, Denies dysuria and Denies urinary urgency Musc Denies arthralgias, Denies joint swelling, Denies numbness and Denies tingling Neuro Denies Abnormal speech present, Denies behavioral changes, Denies vertigo, Denies dizziness, Denies headache(s), Denies loss of vision, Denies memory loss, Denies numbness and Denies tingling Psych Denies anxiety, Denies behavioral changes, Denies depression, Denies memory loss and Denies panic attacks Stevan/Lymph Denies easy bleeding and Denies easy bruising Aller/Immun Denies wheezing Physical exam (Primary Care) Vital Signs: Last Vital Signs Pulse 85 02/20/23 09:29 BP 138/90 H 02/20/23 09:29 Pulse Ox 95 02/20/23 09:29 Oxygen Delivery Method Room Air 02/20/23 09:29 BMI result Body Mass Index 29.7 Tobacco/Smoking Status: Tobacco use Status Tobacco use date assessed 04/13/22 02/20/23 09:33 Patient Tobacco Use Status Never used Tobacco 02/20/23 09:33 e-Cigarette/Vaping Use Never Used 02/20/23 09:33 Thrive Assessment: Date of Thrive Assessment Date Thrive assessed 04/13/22 02/20/23 09:33 Const General: healthy appearing, no acute distress, alert and awake Nutritional Appearance: well nourished Orientation/consciousness: oriented to person, oriented to place and oriented to time HENMT Ears: TM's normal bilaterally General nose exam: Normal nasal mucous membranes and turbinates present Eyes Conjunctivae: conjunctivae normal Sclerae: sclerae normal Pupils: Equal, round and reactive pupils present Neck Neck: Yes no lymphadenopathy and Yes no JVD Thyroid: Thyroid normal Carotids: no bruits Resp Effort & Inspection: normal respiratory effort and not tachypneic Auscultation: no crackles, no rales, no rhonchi and no wheezes Cardio Rate: regular rate Rhythm: regular rhythm Heart sounds: no murmurs and normal S1 and S2 GI Palpation (GI): Soft to palpation, nontender, no hepatomegaly and no splenomegaly Auscultation: normal bowel sounds Skin General skin exam: no rashes or lesions noted and dry skin Neuro General: oriented to person, oriented to place and oriented to time Cranial nerves: Yes Equal, round and reactive pupils present Speech: No Abnormal speech present Gait exam (Neuro): Normal gait present Motor exam (neuro): no tremor noted Extrem Right upper extremity: full ROM Left upper extremity: full ROM Right lower extremity: full ROM; no edema Left lower extremity: full ROM; no edema Psych Mental Status: mental status grossly normal Speech and movement: Normal speech and movement present Affect: normal affect Attitude: cooperative Thought process: Normal thought process present Assessment and Plan Assessment & Plan (1) Sick sinus syndrome: Code(s): I49.5 - Sick sinus syndrome Plan: Followed by likely camp program director Dr. Bolden. Does get her pacemaker interrogated on a six-month basis. Has been doing well without any signs symptoms of chest discomfort, palpitations or dizziness. (2) Persistent atrial fibrillation: Comment: followed by Dr. Dan, status post pacemaker placed September 2016 after syncopal episode on a plane Code(s): I48.19 - Other persistent atrial fibrillation Plan: Continues to follow cardiology. Continues on anticoagulation Denies any overt signs of bleeding. Otherwise denies any palpitations, dizziness, chest discomforts. (3) Acquired hypothyroidism: Code(s): E03.9 - Hypothyroidism, unspecified Plan: Continues on low-dose levothyroxine as been chemically and clinically euthyroid. (4) Hyperlipidemia: Code(s): E78.5 - Hyperlipidemia, unspecified Qualifiers: Hyperlipidemia type: pure hypercholesterolemia Qualified Code(s): E78.00 - Pure hypercholesterolemia, unspecified Plan: Patient's most recent fasting lipids showing appropriate LDL and total cholesterol. Will continue statin therapy with goal LDL to be below 130 (5) Essential hypertension: Code(s): I10 - Essential (primary) hypertension Plan: Patient's blood pressure acceptable today in office. Continues to follow nephrology whom is managing her diuretic therapy. (6) Impaired glucose metabolism: Code(s): R73.09 - Other abnormal glucose Plan: Patient's most recent fasting blood sugar at 123. She does report some dietary indiscretion. Will try to work on lifestyle modifications a reducing her high sugar and carbohydrate foods. Will check an A1c (7) CKD (chronic kidney disease): Code(s): N18.9 - Chronic kidney disease, unspecified Qualifiers: Chronic kidney disease stage: stage 2 (mild) Qualified Code(s): N18.2 - Chronic kidney disease, stage 2 (mild) Plan: Patient is followed by Nephrology. Most recent renal function fairly stable. Does have mild microalbuminuria. Will continue working on controlling blood pressure. Orders: Orders Lipid Panel 6 Months E78.00 - Pure hypercholesterolemia, unspecified Hemoglobin A1c 6 Months R73.09 - Other abnormal glucose Comprehensive Shannon. Panel Fast 6 Months N18.9 - Chronic kidney disease, unspecified Microalbumin, Random (w Creat) 6 Months I10 - Essential (primary) hypertension Coding Level of Care Code Est Pt Level 4 (77021) Diagnoses Sick sinus syndrome I49.5 Persistent atrial fibrillation I48.19 Acquired hypothyroidism E03.9 Pure hypercholesterolemia E78.00 Hyperlipidemia type: pure hypercholesterolemia Essential hypertension I10 Impaired glucose metabolism R73.09 Stage 2 chronic kidney disease N18.2 Chronic kidney disease stage: stage 2 (mild)
== END 2023-02-20 10:35 | disposition home or self-care (01) ==
PROVIDERS: Visit Provider Physician Assistant
DX: I49.5 Sick sinus syndrome (principal); I48.19 Other persistent atrial fibrillation; E03.9 Hypothyroidism, unspecified; E78.00 Pure hypercholesterolemia, unspecified; I12.9 Hypertensive chronic kidney disease with stage 1 through stage 4 chronic kidney disease, or unspecified chronic kidney disease; R73.09 Other abnormal glucose; N18.2 Chronic kidney disease, stage 2 (mild)
CPT/HCPCS: 99214

== ENCOUNTER 2023-02-20 10:59 | Outpatient (REF) | payer MEDICARE, SELFPAY ==
[2023-02-20 13:36] LABS: Magnesium 1.8 mg/dL (1.6-2.6)
== END 2023-02-20 11:00 | disposition home or self-care (01) ==
LOC: HO.10HDL 10:59
PROVIDERS: Visit Provider Internal Medicine Hypertension Specialist
DX: N18.9 Chronic kidney disease, unspecified (principal)
CPT/HCPCS: 36415; 83735

== ENCOUNTER 2023-07-04 09:03 | Outpatient (REF) | payer MEDICARE, SELFPAY | END 2023-07-04 09:04 | disposition home or self-care (01) | LOC: HO.MAMMO 09:03 | PROVIDERS: PCP Physician Assistant; Visit Provider Physician Assistant | DX: Z12.31 Encounter for screening mammogram for malignant neoplasm of breast (principal) | CPT/HCPCS: 77063; 77067 ==

== ENCOUNTER → 2023-07-04 09:15 | Outpatient (BNV) | payer MEDICARE, SELFPAY | PROVIDERS: PCP Physician Assistant; Visit Provider Radiology Diagnostic Radiology | DX: Z12.31 Encounter for screening mammogram for malignant neoplasm of breast (principal) | CPT/HCPCS: 77063; 77067 ==

== ENCOUNTER 2023-08-07 08:31 | Outpatient (REF) | payer MEDICARE, SELFPAY ==
[2023-08-07 11:02] LABS: Estimated Average Glucose 131 mg/dL; Hemoglobin A1c % 6.2 % (<6.0)
[2023-08-07 11:57] LABS: Creatinine Urine 238.66 mg/dL; Microalbum/Creatinine Ratio Ur 20.5 ug/mg cr (<30)
[2023-08-07 12:02] LABS: Alanine Aminotransferase 23 U/L (0-31); Albumin Level 4.2 g/dL (3.5-5.0); Alkaline Phosphatase 85 U/L (39-117); Anion Gap 15 (12-20); Aspartate Amino Transferase 36 U/L (5-31); Blood Urea Nitrogen 30 mg/dL (9-16); Calcium 9.9 mg/dL (8.4-10.2); Carbon Dioxide 26 mmol/L (22-29); Chloride 99 mmol/L (96-108); Cholesterol 155 mg/dL (<200); Estimated Glomerular Filt Rate 36; Glucose Fasting 113 mg/dL (60-99); HDL Cholesterol 50 mg/dL (>40); LDL Cholesterol Calculated 83 mg/dL (<100); Potassium 4.1 mmol/L (3.3-5.1); Sodium 136 mmol/L (135-145); Triglycerides 114 mg/dL (<150)
== END 2023-08-07 08:32 | disposition home or self-care (01) ==
LOC: HO.10HDL 08:31
PROVIDERS: Physician Assistant; Visit Provider Internal Medicine Hypertension Specialist
DX: I12.9 Hypertensive chronic kidney disease with stage 1 through stage 4 chronic kidney disease, or unspecified chronic kidney disease (principal); E78.00 Pure hypercholesterolemia, unspecified; R73.09 Other abnormal glucose; N18.9 Chronic kidney disease, unspecified
CPT/HCPCS: 36415; 80053; 80061; 82043; 82570; 83036

== ENCOUNTER 2023-08-14 10:44 | Outpatient (AMB) | payer MEDICARE, SELFPAY ==
[2023-08-14 10:43] VITALS: BP 160/92; PULSE 72; O2SAT 94; BMI 29.5
--- NOTE | 2023-08-14 10:43 | HO.NEPHOV ---
Vital Signs 08/14/23 10:43 Height 5 ft 1 in Weight 156 lb BMI 29.5 BP 160/92 H Blood Pressure Location Rt brachial Position Sitting Pulse 72 Pulse Source Pulse Oximeter Pulse Oximetry (%) 94 Oxygen Delivery Method Room Air Intake Visit Reasons: 6M follow up/ Confirmed Drug Safety Data Management Specialist Required: No Accompanied by: Self / Same As Patient Allergies cephalexin [Keflex] Allergy (Unknown, Verified 08/14/23 10:45) rash warfarin Allergy (Unknown, Verified 08/14/23 10:45) rash HPI Comments Details: Vonnie elderly woman well known to me. She has a history of hypertension with superimposed white coat effect. She has been monitoring her blood pressure at home. Overall blood pressure seems well controlled at home. In fact some of the readings are rather low and worrisome. 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 Daughter No problems noted. Son No problems noted. Social History Household Members: None Housing: House Alcohol intake: never Patient Tobacco Use Status: Never used Tobacco e-Cigarette/Vaping Use: Never Used Second Hand Smoke Exposure: No service: No Current occupational status: previously employed and retired Cognitive needs: No Hearing needs: No Vision needs: Yes Physical Exam Vital Signs: Last Vital Signs Pulse 72 08/14/23 10:43 BP 160/92 H 08/14/23 10:43 Pulse Ox 94 08/14/23 10:43 Oxygen Delivery Method Room Air 08/14/23 10:43 BMI result Body Mass Index 29.5 Const General: comfortable Nutritional Appearance: well nourished Orientation/consciousness: patient oriented x3 HEENT Head: No normal to inspection Mouth: moist mucous membranes Neck Neck: Yes supple and Yes no JVD Resp Auscultation: clear to auscultation bilaterally, no rales and rub present Cardio Jugular venous distension: no JVD Palpation: no palpable S3 and no palpable S4 Heart sounds: no rubs GI Palpation (GI): Soft to palpation and nontender Percussion: No Fluid wave present General: Yes no CVA tenderness Back/Spine/Pelvis Back: no CVA tenderness Skin General skin exam: no rashes or lesions noted Neuro General: patient oriented x3 Extrem General: Yes no pedal edema and No clubbing Results Reviewed Nephrology Results: Hgb 15.8 g/dl (12.0-16.0) 01/31/23 WBC 6.3 X10*3/uL (4.8-10.8) 01/31/23 Plt Count 253 X10*3/uL (160-400) 01/31/23 Sodium 136 mmol/L (135-145) 08/07/23 Potassium 4.1 mmol/L (3.3-5.1) 08/07/23 Chloride 99 mmol/L (96-108) 08/07/23 Carbon Dioxide 26 mmol/L (22-29) 08/07/23 BUN 30 mg/dL (9-16) H 08/07/23 Creatinine 1.39 mg/dL (0.5-1.4) 08/07/23 Calcium 9.9 mg/dL (8.4-10.2) 08/07/23 Urine Protein Negative mg/dL (Neg-Trace) 09/15/22 Urine Creatinine 238.66 mg/dL 08/07/23 Assessment & Plan Assessment & Plan (1) Essential hypertension: Code(s): I10 - Essential (primary) hypertension Category: Medical Plan: Elderly woman with the longstanding hypertension with superimposed white coat effect. Based on the home blood pressure readings blood pressure is well controlled. In the office today blood pressure is elevated. Continue with Aldactazide . 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 There could be a component of BOLA due to hypoperfusion from the combination of high-dose of diuretics/ARB Plan 08/14/23 Home BP too low Creatinine up to 1.3 Decrease Olmesartan by 50% to 20 mg QD Watch BP at home Orders: Orders Basic Metabolic Panel 6 Months I10 - Essential (primary) hypertension Coding Level of Care Code Est Pt Level 4 (39782) Diagnoses Essential hypertension I10 Stage 2 chronic kidney disease N18.2 Chronic kidney disease stage: stage 2 (mild)
== END 2023-08-14 10:58 | disposition home or self-care (01) ==
PROVIDERS: PCP Physician Assistant; Visit Provider Internal Medicine Hypertension Specialist
DX: I12.9 Hypertensive chronic kidney disease with stage 1 through stage 4 chronic kidney disease, or unspecified chronic kidney disease (principal); N18.2 Chronic kidney disease, stage 2 (mild)
CPT/HCPCS: 99214

== ENCOUNTER → 2023-08-14 10:44 | Outpatient (BNVA) | payer MEDICARE, SELFPAY | PROVIDERS: PCP Physician Assistant; Visit Provider Internal Medicine Hypertension Specialist | DX: I12.9 Hypertensive chronic kidney disease with stage 1 through stage 4 chronic kidney disease, or unspecified chronic kidney disease (principal); N18.2 Chronic kidney disease, stage 2 (mild) | CPT/HCPCS: 99212 ==

== ENCOUNTER 2023-10-05 09:40 | Outpatient (AMB) | payer MEDICARE, SELFPAY ==
--- NOTE | 2023-10-05 09:41 | HO.NEPHOV ---
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 She has a history of hypertension with superimposed white coat effect. She has been monitoring her blood pressure at home. Overall blood pressure seems well controlled at home. In fact some of the readings are rather low and worrisome. Home BP is rather low SBP at 100 10/05/2023. Vonnie is here today because of itching. She has had itching with rash for the last 2 weeks. She is taking triamcinolone cream which seems to be helping. She thinks it could be from the spironolactone. However she has been on spironolactone hydrochlorothiazide for the last 2-3 months. No new medications have been added. During her last visit olmesartan was decreased from 40 mg down to 20 mg a day due to low blood pressure. She is monitoring blood pressure at home systolic blood pressure is still relatively low in the range of 102/103 mm Hg. She is asymptomatic [facility] Medical History Acquired hypothyroidism Actinic keratosis Essential hypertension Hyperlipidemia Need for prophylactic antibiotic Osteoarthritis of hips, bilateral Osteopenia after menopause Persistent atrial fibrillation Sick sinus syndrome Surgical History Status post total hip replacement, left History of tonsillectomy Cardiac pacemaker Family History Father Medical history non-contributory Mother Medical history non-contributory Tuberculosis Sister Tuberculosis Son No problems noted. Daughter No problems noted. Son No problems noted. Social History Household Members: None Housing: House Alcohol intake: never Patient Tobacco Use Status: Never used Tobacco e-Cigarette/Vaping Use: Never Used Second Hand Smoke Exposure: No service: No Current occupational status: previously employed and retired Cognitive needs: No Hearing needs: No Vision needs: Yes Physical Exam Vital Signs: Last Vital Signs BP 162/90 H 10/05/23 09:46 BMI result Body Mass Index 29.5 Const General: comfortable; No acute distress Orientation/consciousness: patient oriented x3 Eyes General: appearance normal, both eyes and all related structures Visual Weaver: normal visual weaver by confrontation Neck Neck: Yes supple and Yes no JVD Resp Effort & Inspection: normal respiratory effort and respiratory effort not decreased Auscultation: rhonchi Cardio Palpation: no palpable S3 and no palpable S4 Heart sounds: no rubs GI Inspection: Yes normal to inspection Palpation (GI): Soft to palpation Percussion: Yes normal to percussion Auscultation: normal bowel sounds General: Yes no CVA tenderness Back/Spine/Pelvis Back: no CVA tenderness Skin General skin exam: no petechiae, no purpura and other (Scattered rash noted) Neuro General: patient oriented x3 and no focal motor deficits Extrem General: No clubbing and No edema Results Reviewed Nephrology Results: Hgb 15.8 g/dl (12.0-16.0) 01/31/23 WBC 6.3 X10*3/uL (4.8-10.8) 01/31/23 Plt Count 253 X10*3/uL (160-400) 01/31/23 Sodium 136 mmol/L (135-145) 08/07/23 Potassium 4.1 mmol/L (3.3-5.1) 08/07/23 Chloride 99 mmol/L (96-108) 08/07/23 Carbon Dioxide 26 mmol/L (22-29) 08/07/23 BUN 30 mg/dL (9-16) H 08/07/23 Creatinine 1.39 mg/dL (0.5-1.4) 08/07/23 Calcium 9.9 mg/dL (8.4-10.2) 08/07/23 Urine Protein Negative mg/dL (Neg-Trace) 09/15/22 Urine Creatinine 238.66 mg/dL 08/07/23 Assessment & Plan Assessment & Plan (1) Essential hypertension: Code(s): I10 - Essential (primary) hypertension Category: Medical Plan: Elderly woman with the longstanding hypertension with superimposed white coat effect. Based on the home blood pressure readings blood pressure is well controlled. In the office today blood pressure is elevated. Based on home blood pressure readings I will discontinue Aldactazide. Let us see if this improves the itching. Given a prescription for triamcinolone cream and hydroxyzine 10 mg p.o. b.i.d. p.r.n.. 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 There could be a component of BOLA due to hypoperfusion from the combination of high-dose of diuretics/ARB Orders: Orders Complete Blood Count Auto Diff 4 Weeks Jason Lopez MD N18.2 - Chronic kidney disease, stage 2 (mild) Basic Metabolic Panel 4 Weeks Jason Lopez MD N18.2 - Chronic kidney disease, stage 2 (mild) Medications: New triamcinolone acetonide 0.5% 1 appl topical DAILY 15 grams 3RF Jason Lopez MD hydroxyzine HCl 10 mg PO BID PRN 30 tabs 1RF itching Jason Lopez MD Changed From olmesartan 40 mg PO DAILY 90 days 90 tabs 3RF To olmesartan 20 mg PO DAILY Alan Snell PA-C Discontinued spironolacton-hydrochlorothiaz 25-25 mg Discontinued Reason: Doctor's Order 1 tab PO DAILY 90 tabs 2RF Coding Level of Care Code Est Pt Level 4 (14155) Diagnoses Essential hypertension I10 Stage 2 chronic kidney disease N18.2 Chronic kidney disease stage: stage 2 (mild)
[2023-10-05 09:46] VITALS: BP 162/90; BMI 29.5
== END 2023-10-05 10:05 | disposition home or self-care (01) ==
PROVIDERS: PCP Physician Assistant; Visit Provider Internal Medicine Hypertension Specialist
DX: I12.9 Hypertensive chronic kidney disease with stage 1 through stage 4 chronic kidney disease, or unspecified chronic kidney disease (principal); N18.2 Chronic kidney disease, stage 2 (mild)
CPT/HCPCS: 99214

== ENCOUNTER → 2023-10-05 09:40 | Outpatient (BNVA) | payer MEDICARE, SELFPAY | PROVIDERS: PCP Physician Assistant; Visit Provider Internal Medicine Hypertension Specialist | DX: I12.9 Hypertensive chronic kidney disease with stage 1 through stage 4 chronic kidney disease, or unspecified chronic kidney disease (principal); N18.2 Chronic kidney disease, stage 2 (mild) | CPT/HCPCS: 99212 ==

== ENCOUNTER 2023-10-29 13:18 | Outpatient (AMB) | payer MEDICARE, SELFPAY ==
[2023-10-29 13:23] VITALS: BP 178/110; PULSE 110; O2SAT 95; BMI 30.2
--- NOTE | 2023-10-29 13:23 | HO.NEPHOV_ITS ---
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 She has a history of hypertension with superimposed white coat effect. She has been monitoring her blood pressure at home. Overall blood pressure seems well controlled at home. In fact some of the readings are rather low and worrisome. Home BP is rather low SBP at 100 10/05/2023. Vonnie is here today because of itching. She has had itching with rash for the last 2 weeks. She is taking triamcinolone cream which seems to be helping. She thinks it could be from the spironolactone. However she has been on spironolactone hydrochlorothiazide for the last 2-3 months. No new medications have been added. During her last visit olmesartan was decreased from 40 mg down to 20 mg a day due to low blood pressure. She is monitoring blood pressure at home systolic blood pressure is still relatively low in the range of 102/103 mm Hg. She is asymptomatic 10/29/23 c/o fatigue HOme BP elevated PFSH Medical History Acquired hypothyroidism Actinic keratosis Essential hypertension Hyperlipidemia Need for prophylactic antibiotic Osteoarthritis of hips, bilateral Osteopenia after menopause Persistent atrial fibrillation Sick sinus syndrome Surgical History Status post total hip replacement, left History of tonsillectomy Cardiac pacemaker Family History Father Medical history non-contributory Mother Medical history non-contributory Tuberculosis Sister Tuberculosis Son No problems noted. Daughter No problems noted. Son No problems noted. Social History Household Members: None Housing: House Alcohol intake: never Patient Tobacco Use Status: Never used Tobacco e-Cigarette/Vaping Use: Never Used Second Hand Smoke Exposure: No service: No Current occupational status: previously employed and retired Cognitive needs: No Hearing needs: No Vision needs: Yes Physical Exam Vital Signs: Last Vital Signs Pulse 110 H 10/29/23 13:23 BP 178/110 H 10/29/23 13:23 Pulse Ox 95 10/29/23 13:23 Oxygen Delivery Method Room Air 10/29/23 13:23 BMI result Body Mass Index 30.2 Const General: comfortable; No acute distress Orientation/consciousness: patient oriented x3 Eyes General: appearance normal, both eyes and all related structures Visual Weaver: normal visual weaver by confrontation Neck Neck: Yes supple and Yes no JVD Resp Effort & Inspection: normal respiratory effort and respiratory effort not decreased Auscultation: rhonchi Cardio Palpation: no palpable S3 and no palpable S4 Heart sounds: no rubs GI Inspection: Yes normal to inspection Palpation (GI): Soft to palpation Percussion: Yes normal to percussion Auscultation: normal bowel sounds General: Yes no CVA tenderness Back/Spine/Pelvis Back: no CVA tenderness Skin General skin exam: no petechiae and no purpura Neuro General: patient oriented x3 and no focal motor deficits Extrem General: No clubbing and No edema Results Reviewed Nephrology Results: Hgb 15.8 g/dl (12.0-16.0) 01/31/23 WBC 6.3 X10*3/uL (4.8-10.8) 01/31/23 Plt Count 253 X10*3/uL (160-400) 01/31/23 Sodium 136 mmol/L (135-145) 08/07/23 Potassium 4.1 mmol/L (3.3-5.1) 08/07/23 Chloride 99 mmol/L (96-108) 08/07/23 Carbon Dioxide 26 mmol/L (22-29) 08/07/23 BUN 30 mg/dL (9-16) H 08/07/23 Creatinine 1.39 mg/dL (0.5-1.4) 08/07/23 Calcium 9.9 mg/dL (8.4-10.2) 08/07/23 Urine Creatinine 238.66 mg/dL 08/07/23 Assessment & Plan Assessment & Plan (1) Essential hypertension: Code(s): I10 - Essential (primary) hypertension Category: Medical Plan: Elderly woman with the longstanding hypertension with superimposed white coat effect. Based on the home blood pressure readings blood pressure is well controlled. In the office today blood pressure is elevated. 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 There could be a component of BOLA due to hypoperfusion from the combination of high-dose of diuretics/ARB Medications: New spironolacton-hydrochlorothiaz 25-25 mg 0.5 tabs PO DAILY 90 tabs 0RF Coding Level of Care Code Est Pt Level 4 (61812) Diagnoses Essential hypertension I10 Stage 2 chronic kidney disease N18.2 Chronic kidney disease stage: stage 2 (mild)
== END 2023-10-29 13:38 | disposition home or self-care (01) ==
PROVIDERS: PCP Physician Assistant; Visit Provider Internal Medicine Hypertension Specialist
DX: I12.9 Hypertensive chronic kidney disease with stage 1 through stage 4 chronic kidney disease, or unspecified chronic kidney disease (principal); N18.2 Chronic kidney disease, stage 2 (mild)
CPT/HCPCS: 99214

== ENCOUNTER → 2023-10-29 13:18 | Outpatient (BNVA) | payer MEDICARE, SELFPAY | PROVIDERS: PCP Physician Assistant; Visit Provider Internal Medicine Hypertension Specialist | DX: I12.9 Hypertensive chronic kidney disease with stage 1 through stage 4 chronic kidney disease, or unspecified chronic kidney disease (principal); N18.2 Chronic kidney disease, stage 2 (mild) | CPT/HCPCS: 99212 ==

== ENCOUNTER 2023-11-15 09:39 | Outpatient (REF) | payer MEDICARE, SELFPAY ==
[2023-11-15 10:46] LABS: MANUAL DIFF FLAG NO
[2023-11-15 10:51] LABS: Basophils Absolute Auto 0.1 X10*3/uL (0.0-0.2); Basophils Percent Auto 1.3 % (0-2); Eosinophils Absolute Auto 0.3 X10*3/uL (0.0-0.4); Eosinophils Percent Auto 3.6 % (0-4); Hematocrit 47.4 % (37.0-47.0); Imm Gran Abs Auto 0.02 X10*3/uL (0.00-0.03); Imm Gran Pct Auto 0.3 % (0.0-0.4); Lymphocytes Absolute Auto 2.9 X10*3/uL (1.2-4.9); Lymphocytes Percent Auto 41.2 % (20-40); Mean Corpuscular HGB Conc 33.8 g/dl (31.0-35.0); Mean Corpuscular Hemoglobin 31.1 pg (27.0-33.0); Mean Corpuscular Volume 92.2 fL (80.0-98.0); Mean Platelet Volume 9.5 fL (9.4-12.3); Monocytes Absolute Auto 0.8 X10*3/uL (0.1-1.2); Monocytes Percent Auto 11.6 % (2-11); Platelet Count 256 X10*3/uL (160-400); Red Blood Count 5.14 X10*6/uL (4.20-5.50); Red Cell Distribution Width 13.3 % (11.0-16.0)
[2023-11-15 12:00] LABS: Anion Gap 13 (12-20); Blood Urea Nitrogen 23 mg/dL (9-16); Calcium 10.5 mg/dL (8.4-10.2); Carbon Dioxide 30 mmol/L (22-29); Chloride 97 mmol/L (96-108); Estimated Glomerular Filt Rate 37; Glucose Random 119 mg/dL (60-115); Potassium 4.6 mmol/L (3.3-5.1); Sodium 135 mmol/L (135-145)
== END 2023-11-15 09:40 | disposition home or self-care (01) ==
LOC: HO.10HDL 09:39
PROVIDERS: Visit Provider Internal Medicine Hypertension Specialist
DX: N18.2 Chronic kidney disease, stage 2 (mild) (principal)
CPT/HCPCS: 36415; 80048; 85025

== ENCOUNTER 2023-11-22 09:37 | Outpatient (AMB) | payer MEDICARE, SELFPAY ==
[2023-11-22 09:38] VITALS: BP 152/90; BMI 29.3
--- NOTE | 2023-11-22 09:38 | HO.NEPHOV ---
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 She has a history of hypertension with superimposed white coat effect. She has been monitoring her blood pressure at home. Overall blood pressure seems well controlled at home. In fact some of the readings are rather low and worrisome. Home BP is rather low SBP at 100 10/05/2023. Vonnie is here today because of itching. She has had itching with rash for the last 2 weeks. She is taking triamcinolone cream which seems to be helping. She thinks it could be from the spironolactone. However she has been on spironolactone hydrochlorothiazide for the last 2-3 months. No new medications have been added. During her last visit olmesartan was decreased from 40 mg down to 20 mg a day due to low blood pressure. She is monitoring blood pressure at home systolic blood pressure is still relatively low in the range of 102/103 mm Hg. She is asymptomatic 10/29/23 c/o fatigue HOme BP elevated 11/22/23 Home readings are good Relatively low readings in the afternoon [facility] Medical History Acquired hypothyroidism Actinic keratosis Essential hypertension Hyperlipidemia Need for prophylactic antibiotic Osteoarthritis of hips, bilateral Osteopenia after menopause Persistent atrial fibrillation Sick sinus syndrome Surgical History Status post total hip replacement, left History of tonsillectomy Cardiac pacemaker Family History Father Medical history non-contributory Mother Medical history non-contributory Tuberculosis Sister Tuberculosis Son No problems noted. Daughter No problems noted. Son No problems noted. Social History Household Members: None Housing: House Alcohol intake: never Patient Tobacco Use Status: Never used Tobacco e-Cigarette/Vaping Use: Never Used Second Hand Smoke Exposure: No service: No Current occupational status: previously employed and retired Cognitive needs: No Hearing needs: No Vision needs: Yes Physical Exam Vital Signs: BMI result Body Mass Index 29.3 Const General: comfortable; No acute distress Orientation/consciousness: patient oriented x3 Eyes General: appearance normal, both eyes and all related structures Visual Weaver: normal visual weaver by confrontation Neck Neck: Yes supple and Yes no JVD Resp Effort & Inspection: normal respiratory effort and respiratory effort not decreased Auscultation: rhonchi Cardio Palpation: no palpable S3 and no palpable S4 Heart sounds: no rubs GI Inspection: Yes normal to inspection Palpation (GI): Soft to palpation Percussion: Yes normal to percussion Auscultation: normal bowel sounds General: Yes no CVA tenderness Back/Spine/Pelvis Back: no CVA tenderness Skin General skin exam: no petechiae and no purpura Neuro General: patient oriented x3 and no focal motor deficits Extrem General: No clubbing and No edema Results Reviewed Nephrology Results: Hgb 16.0 g/dl (12.0-16.0) 11/15/23 WBC 7.0 X10*3/uL (4.8-10.8) 11/15/23 Plt Count 256 X10*3/uL (160-400) 11/15/23 Sodium 135 mmol/L (135-145) 11/15/23 Potassium 4.6 mmol/L (3.3-5.1) 11/15/23 Chloride 97 mmol/L (96-108) 11/15/23 Carbon Dioxide 30 mmol/L (22-29) H 11/15/23 BUN 23 mg/dL (9-16) H 11/15/23 Creatinine 1.34 mg/dL (0.5-1.4) 11/15/23 Calcium 10.5 mg/dL (8.4-10.2) H 11/15/23 Urine Creatinine 238.66 mg/dL 08/07/23 Assessment & Plan Assessment & Plan (1) Essential hypertension: Code(s): I10 - Essential (primary) hypertension Category: Medical Plan: Elderly woman with the longstanding hypertension with superimposed white coat effect. Based on the home blood pressure readings blood pressure is well controlled. In the office today blood pressure is elevated. 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 There could be a component of BOLA due to hypoperfusion from the combination of high-dose of diuretics/ARB Creatinine is stable Medications: Changed From olmesartan 40 mg PO DAILY 90 tabs 6RF To olmesartan 40 mg PO .q evening Coding Level of Care Code Est Pt Level 4 (58298) Diagnoses Essential hypertension I10 Stage 2 chronic kidney disease N18.2 Chronic kidney disease stage: stage 2 (mild)
== END 2023-11-22 09:51 | disposition home or self-care (01) ==
PROVIDERS: PCP Physician Assistant; Visit Provider Internal Medicine Hypertension Specialist
DX: I12.9 Hypertensive chronic kidney disease with stage 1 through stage 4 chronic kidney disease, or unspecified chronic kidney disease (principal); N18.2 Chronic kidney disease, stage 2 (mild)
CPT/HCPCS: 99214

== ENCOUNTER → 2023-11-22 09:37 | Outpatient (BNVA) | payer MEDICARE, SELFPAY | PROVIDERS: PCP Physician Assistant; Visit Provider Internal Medicine Hypertension Specialist | DX: I12.9 Hypertensive chronic kidney disease with stage 1 through stage 4 chronic kidney disease, or unspecified chronic kidney disease (principal); N18.2 Chronic kidney disease, stage 2 (mild) | CPT/HCPCS: 99212 ==

== ENCOUNTER 2024-01-24 10:25 | Outpatient (REF) | payer MEDICARE, SELFPAY ==
[2024-01-24 14:05] LABS: Hematocrit 46.4 % (37.0-47.0); Hemoglobin 15.5 g/dl (12.0-16.0); Mean Corpuscular HGB Conc 33.4 g/dl (31.0-35.0); Mean Corpuscular Volume 92.8 fL (80.0-98.0); Platelet Count 241 X10*3/uL (160-400); Red Cell Distribution Width 13.8 % (11.0-16.0); White Blood Count 5.6 X10*3/uL (4.8-10.8)
[2024-01-24 14:33] LABS: Alanine Aminotransferase 30 U/L (0-31); Albumin Level 4.2 g/dL (3.5-5.0); Alkaline Phosphatase 73 U/L (39-117); Anion Gap 12 (12-20); Aspartate Amino Transferase 41 U/L (5-31); Blood Urea Nitrogen 23 mg/dL (9-16); Calcium 10.1 mg/dL (8.4-10.2); Carbon Dioxide 29 mmol/L (22-29); Chloride 99 mmol/L (96-108); Cholesterol 166 mg/dL (<200); Estimated Glomerular Filt Rate 41; Glucose Fasting 111 mg/dL (60-99); HDL Cholesterol 59 mg/dL (>40); LDL Cholesterol Calculated 89 mg/dL (<100); Potassium 4.5 mmol/L (3.3-5.1); Sodium 135 mmol/L (135-145); Total Protein 7.5 g/dL (6.5-8.0); Triglycerides 91 mg/dL (<150)
== END 2024-01-24 10:26 | disposition home or self-care (01) ==
LOC: HO.10HDL 10:25
PROVIDERS: Referring Provider Internal Medicine Hypertension Specialist; Visit Provider Physician Assistant
DX: E78.00 Pure hypercholesterolemia, unspecified (principal); N18.2 Chronic kidney disease, stage 2 (mild)
CPT/HCPCS: 36415; 80053; 80061; 85027

== ENCOUNTER 2024-01-29 09:46 | Outpatient (AMB) | payer MEDICARE, SELFPAY ==
--- NOTE | 2024-01-29 09:47 | A.OFFPC_ITS ---
Intake Visit Reasons: med follow up [phone] Photographic Editor Required: No Information Interpreted: non-clinical & clinical Public Events Facilities Rental Manager: Not Required per policy Accompanied by: Self / Same As Patient Allergies cephalexin [Keflex] Allergy (Unknown, Verified 01/29/24 09:54) rash warfarin Allergy (Unknown, Verified 01/29/24 09:54) rash Medication List - Last Reconciled 01/29/24 by Alan Snell PA-C atorvastatin 20 mg PO DAILY 90 days dabigatran etexilate 150 mg PO BID 90 days levothyroxine 25 mcg PO QAM metoprolol succinate ER 200 mg PO DAILY 90 days olmesartan 40 mg PO .q evening spironolacton-hydrochlorothiaz 25-25 mg 0.5 tabs PO DAILY triamcinolone acetonide 0.5% 1 appl topical DAILY Tobacco use date assessed: 01/29/24 Fall risk assessment: No Falls in past year Last assessed Fall Risk: 01/29/24 Dental Screening Dental Screen Date: 01/29/24 Did you have a dental visit in the last 12 months?: Yes Did you have a dental problem in the last 6 months where you did not have access to dental care?: No Was dental information given to patient?: Patient has dentist HPI med follow up [phone] HPI Details Patient is 88-year-old female being evaluated today via telephone only. ? Patient has a medical history including hypertension, persistent AFib, hyperlipidemia hypothyroidism, osteoporosis. .. HTN: Has a Digital Marketing Associate, Does monitor her BP at home. Patient reports better control of her blood pressure recently. She reports home blood pressures are more stable. ? Otherwise blood pressures have been much better controlled. ,, AFIB and has a pacemaker: Does? see a Division Operations Specialist ( Dr Bolden) at this time.? No overt signs of bleeding. She otherwise denies any dizziness, chest discomfort, headaches or vision issues. .. Hyperlipidemia: Patient continues on moderate-dose statin therapy without side effect. most recent fasting lipid panel showing appropriate total cholesterol and LDL .. Hypothyroidism: Continues on levothyroxine 25 mcg, most recent TSH has been stable. Patient has been clinically and chemically euthyroid. Laboratory Tests 08/07/23 01/24/24 08:34 10:28 RBC 5.00 Hgb 15.5 Creatinine 1.24 Cholesterol 155 166 LDL Cholesterol, C alc 89 PFSH Medical History Osteoarthritis of hips, bilateral Need for prophylactic antibiotic Osteopenia after menopause Actinic keratosis Sick sinus syndrome Persistent atrial fibrillation Acquired hypothyroidism Hyperlipidemia Essential hypertension Surgical History Status post total hip replacement, left History of tonsillectomy Cardiac pacemaker Family History Father Medical history non-contributory Mother Medical history non-contributory Tuberculosis Sister Tuberculosis Son No problems noted. Daughter No problems noted. Son No problems noted. Social History Household Members: None Housing: House Alcohol intake: never Patient Tobacco Use Status: Never used Tobacco e-Cigarette/Vaping Use: Never Used Second Hand Smoke Exposure: No service: No Current occupational status: previously employed and retired Cognitive needs: No Hearing needs: No Vision needs: Yes Questionnaire PHQ-9 Over the last 2 weeks, how often have you been bothered by any of the following problems? 1. Little interest or pleasure in doing things: not at all 2. Feeling down, depressed, or hopeless: not at all 3. Trouble falling or staying asleep, or sleeping too much: not at all 4. Feeling tired or having little energy: not at all 5. Poor appetite or overeating: not at all 6. Feeling bad about yourself - or that you are a failure or have let yourself or your family down: not at all 7. Trouble concentrating on things, such as reading the newspaper or watching television: not at all 8. Moving or speaking so slowly that other people could have noticed. Or the opposite - being so fidgety or restless that you have been moving around a lot more than usual: not at all 9. Thoughts that you would be better off or of hurting yourself in some way: not at all Total score: 0 Depression Screening Interpretation: Negative Depression Screening Done: Yes 89419 - PHQ-9 Billing: Yes Source: Developed by Drs. Mario Bennett, Anjana ConwaySesar and colleagues, with an educational chapincito from [employer]. Thrive Questionnaire Date Thrive assessed: 01/29/24 I am a: Patient What is your living situation today?: I have a steady place to live Within the past 12 months, did the food you bought not last and you didn't have the money to get more?: Never true Within the past 12 months, did you worry whether your food would run out before you got money to buy more?: Never true Do you have trouble paying for medicines?: No Do you have trouble getting transportation to medical appointments?: No Do you have trouble paying your heating and electricity bill?: No Do you have trouble taking care of your child, family member or friend?: No Do you have trouble with day-to-day activities such as bathing, preparing meals, shopping, managing finances, etc.?: No Are you currently unemployed and looking for a job?: No Are you interested in more education?: No Please select the resources that you would like help with: None Currently or been in a relationship where the following occur: No concerns reported THRIVE Score: 0 AUDIT C Alcohol Use Questionnaire (AUDIT-C) 1. How often do you have a drink containing alcohol?: Never 3. How often do you have six or more drinks on one occasion?: Never Total Score: 0 HANNAH-7 AMB Questionnaire HANNAH-7 Date HANNAH - 7 assessed: 01/29/24 Feeling nervous, anxious, or on edge: 0 = Not at all Not being able to stop or control worryin = Not at all Worrying too much about different things: 0 = Not at all Trouble relaxin = Not at all Being so restless that it is hard to sit still: 0 = Not at all Becoming easily annoyed or irritable: 0 = Not at all Feeling afraid as if something awful might happen: 0 = Not at all Total HANNAH-7 score (0-4 normal; 5-9 mild; 10-14 moderate; 15-21 severe): 0 Source: Developed by Drs. Mario Bennett, Anjana Conway, Sesar Kc and colleagues, with an educational chapincito from [employer]. HANNAH-7 Assessment Billing HANNAH-7 Assessment Tool: HANNAH-7 Assessment 54795 Review of Systems Const Denies headache(s) Eyes Denies loss of vision ENT Denies vertigo, Denies dizziness, Denies headache(s) and Denies sore throat Card Denies chest pain, Denies leg edema and Denies lightheadedness Resp Denies cough, Denies hemoptysis and Denies wheezing GI Denies abdominal pain, Denies melena, Denies constipation, Denies diarrhea and Denies vomiting Denies urinary frequency, Denies dysuria and Denies urinary urgency Musc Denies arthralgias, Denies joint swelling, Denies numbness and Denies tingling Neuro Denies behavioral changes, Denies vertigo, Denies dizziness, Denies headache(s), Denies loss of vision, Denies memory loss, Denies numbness and Denies tingling Psych Denies anxiety, Denies behavioral changes, Denies depression, Denies memory loss and Denies panic attacks Stevan/Lymph Denies easy bleeding and Denies easy bruising Aller/Immun Denies wheezing Physical exam (Primary Care) Tobacco/Smoking Status: Tobacco use Status Tobacco use date assessed 01/29/24 01/29/24 09:48 Patient Tobacco Use Status Never used Tobacco 01/29/24 09:48 e-Cigarette/Vaping Use Never Used 01/29/24 09:48 PHQ-9: PHQ-9 Score PHQ-9: Total score 0 01/29/24 09:48 Depression Screening Interpretation: Negative Thrive Assessment: Date of Thrive Assessment Date Thrive assessed 01/29/24 01/29/24 09:48 Currently or been in a relationship where the following occur: No concerns reported Telehealth Telehealth Telehealth Platform: Telephone Location of provider rendering services: practice address Location of patient: address on file Patient Identification confirmed using: Name, : Yes Telehealth method: voice only Patient verbally consented to treatment: Yes Patient verbally consented to billing insurance company: Yes Patient informed of any privacy concerns related to visit: Yes Minutes spent on Phone/Video with Pt.: 11 Coding Level of Care Code Tele Est Pt Level 4 (90960) Diagnoses Pure hypercholesterolemia E78.00 Hyperlipidemia type: pure hypercholesterolemia Essential hypertension I10 Acquired hypothyroidism E03.9 Stage 2 chronic kidney disease N18.2 Chronic kidney disease stage: stage 2 (mild) Persistent atrial fibrillation I48.19 Additional Codes HANNAH-7 Assessment Billing - HANNAH-7 Assessment Tool: HANNAH-7 Assessment 35508 ([id number]) Assessment & Plan Assessment & Plan (1) Hyperlipidemia: Code(s): E78.5 - Hyperlipidemia, unspecified Category: Medical Qualifiers: Hyperlipidemia type: pure hypercholesterolemia Qualified Code(s): E78.00 - Pure hypercholesterolemia, unspecified Plan: Patient's most recent lipid panel showing excellent control over total cholesterol and LDL. (2) Essential hypertension: Code(s): I10 - Essential (primary) hypertension Category: Medical Plan: Patient continues to follow Nephrology, continues on multiple antihypertensive medications with good effect on her blood pressure. Goal blood pressure to remain below 140/90 (3) Acquired hypothyroidism: Code(s): E03.9 - Hypothyroidism, unspecified Category: Medical Plan: Patient's most recent TSH stable. Will continue her current dose levothyroxine 25 mcg. (4) CKD (chronic kidney disease): Code(s): N18.9 - Chronic kidney disease, unspecified Category: Medical Qualifiers: Chronic kidney disease stage: stage 2 (mild) Qualified Code(s): N18.2 - Chronic kidney disease, stage 2 (mild) Plan: Patient continues to follow Nephrology, will avoid any nephrotoxins. Blood pressure she reports that home has been stable. (5) Persistent atrial fibrillation: Comment: followed by Dr. Dan, status post pacemaker placed September 2016 after syncopal episode on a plane Code(s): I48.19 - Other persistent atrial fibrillation Category: Medical Plan: Followed coremaker (Dr. Bolden). Patient denies any overt signs of bleeding. She continues on rate control metoprolol to mg daily. Orders: Orders Lipid Panel 6 Months E78.00 - Pure hypercholesterolemia, unspecified TSH reflex Free T4 6 Months E03.9 - Hypothyroidism, unspecified Microalbumin, Random (w Creat) 6 Months I10 - Essential (primary) hypertension Comprehensive [place]. Panel Fast 6 Months I10 - Essential (primary) hypertension Complete Blood Count no Diff 6 Months I10 - Essential (primary) hypertension Patient Instructions: Goal : Blood pressure to remain below 140/90, :Barriers: Age, adherence to physical activity and healthy eating habits
== END 2024-01-29 11:25 | disposition home or self-care (01) ==
LOC: HO.HMCH 09:46
PROVIDERS: PCP Physician Assistant; Visit Provider Physician Assistant
DX: I12.9 Hypertensive chronic kidney disease with stage 1 through stage 4 chronic kidney disease, or unspecified chronic kidney disease (principal); N18.2 Chronic kidney disease, stage 2 (mild); I48.19 Other persistent atrial fibrillation; E78.00 Pure hypercholesterolemia, unspecified; E03.9 Hypothyroidism, unspecified

== ENCOUNTER → 2024-01-29 09:46 | Outpatient (BNVA) | payer MEDICARE, SELFPAY | PROVIDERS: PCP Physician Assistant; Visit Provider Physician Assistant ==

== ENCOUNTER 2024-02-12 09:15 | Outpatient (REF) | payer MEDICARE, SELFPAY ==
[2024-02-12 11:18] LABS: Anion Gap 10 (12-20); Blood Urea Nitrogen 25 mg/dL (9-16); Calcium 9.5 mg/dL (8.4-10.2); Carbon Dioxide 30 mmol/L (22-29); Chloride 100 mmol/L (96-108); Estimated Glomerular Filt Rate 42; Glucose Random 117 mg/dL (60-115); Potassium 4.3 mmol/L (3.3-5.1); Sodium 136 mmol/L (135-145)
== END 2024-02-12 09:16 | disposition home or self-care (01) ==
LOC: HO.10HDL 09:15
PROVIDERS: Visit Provider Internal Medicine Hypertension Specialist
DX: I10 Essential (primary) hypertension (principal)
CPT/HCPCS: 36415; 80048

== ENCOUNTER 2024-02-19 10:06 | Outpatient (AMB) | payer MEDICARE, SELFPAY ==
[2024-02-19 10:11] VITALS: BP 140/84; BMI 28.9
--- NOTE | 2024-02-19 10:11 | HO.NEPHOV_ITS ---
Vital Signs 02/19/24 10:11 Height 5 ft 1 in Weight 153 lb BMI 28.9 BP 140/84 H Blood Pressure Location Rt brachial Position Sitting Intake Visit Reasons: 3 mon follow up/ Conf Warehouse Packer Required: No Accompanied by: Self / Same As Patient Allergies cephalexin [Keflex] Allergy (Unknown, Verified 02/19/24 10:12) rash warfarin Allergy (Unknown, Verified 02/19/24 10:12) rash Medication List - Last Reconciled 02/19/24 by Jason Lopez MD atorvastatin 20 mg PO DAILY 90 days dabigatran etexilate 150 mg PO BID 90 days levothyroxine 25 mcg PO QAM metoprolol succinate ER 200 mg PO DAILY 90 days olmesartan 20 mg PO .q evening spironolacton-hydrochlorothiaz 25-25 mg 0.5 tabs PO DAILY triamcinolone acetonide 0.5% 1 appl topical DAILY HPI Comments Details: Vonnie elderly woman well known to me. She has a history of hypertension with superimposed white coat effect. She has been monitoring her blood pressure at home. Overall blood pressure seems well controlled at home. In fact some of the readings are rather low and worrisome. Home BP is rather low SBP at 100 10/05/2023. Vonnie is here today because of itching. She has had itching with rash for the last 2 weeks. She is taking triamcinolone cream which seems to be helping. She thinks it could be from the spironolactone. However she has been on spironolactone hydrochlorothiazide for the last 2-3 months. No new medications have been added. During her last visit olmesartan was decreased from 40 mg down to 20 mg a day due to low blood pressure. She is monitoring blood pressure at home systolic blood pressure is still relatively low in the range of 102/103 mm Hg. She is asymptomatic 10/29/23 c/o fatigue HOme BP elevated 11/22/23 Home readings are good Relatively low readings in the afternoon 02/19/24 Currently o n Benicar 40 mg half tab in evening along with aldactazide 25/25 Haf tab in AM Home BP is excellent Occasional low readings After decreasing Jarad with Vit D to QOD due to high Ca of 10.5. repeat CA is normal [facility] Medical History Osteoarthritis of hips, bilateral Need for prophylactic antibiotic Osteopenia after menopause Actinic keratosis Sick sinus syndrome Persistent atrial fibrillation Acquired hypothyroidism Hyperlipidemia Essential hypertension Surgical History Status post total hip replacement, left History of tonsillectomy Cardiac pacemaker Family History Father Medical history non-contributory Mother Medical history non-contributory Tuberculosis Sister Tuberculosis Son No problems noted. Daughter No problems noted. Son No problems noted. Social History Household Members: None Housing: House Alcohol intake: never Patient Tobacco Use Status: Never used Tobacco e-Cigarette/Vaping Use: Never Used Second Hand Smoke Exposure: No service: No Current occupational status: previously employed and retired Cognitive needs: No Hearing needs: No Vision needs: Yes Physical Exam Vital Signs: Last Vital Signs BP 140/84 H 02/19/24 10:11 BMI result Body Mass Index 28.9 Results Reviewed Nephrology Results: Hgb 15.5 g/dl (12.0-16.0) 01/24/24 WBC 5.6 X10*3/uL (4.8-10.8) 01/24/24 Plt Count 241 X10*3/uL (160-400) 01/24/24 Sodium 136 mmol/L (135-145) 02/12/24 Potassium 4.3 mmol/L (3.3-5.1) 02/12/24 Chloride 100 mmol/L (96-108) 02/12/24 Carbon Dioxide 30 mmol/L (22-29) H 02/12/24 BUN 25 mg/dL (9-16) H 02/12/24 Creatinine 1.21 mg/dL (0.5-1.4) 02/12/24 Calcium 9.5 mg/dL (8.4-10.2) 02/12/24 Assessment & Plan Assessment & Plan (1) Essential hypertension: Code(s): I10 - Essential (primary) hypertension Category: Medical Plan: Elderly woman with the longstanding hypertension with superimposed white coat effect. Based on the home blood pressure readings blood pressure is well controlled. In the office today blood pressure is elevated. Keep Aldactazide 25/25 : Half tab a day Keep Olmesartan 40 mg tabs- HALF a tab Q PM (2) CKD (chronic kidney disease): Code(s): N18.9 - Chronic kidney disease, unspecified Category: Medical Qualifiers: Chronic kidney disease stage: stage 2 (mild) Qualified Code(s): N18.2 - Chronic kidney disease, stage 2 (mild) Plan: Vonnie has mild CKD probably due to age-related nephron loss. There could be a component of BOLA due to hypoperfusion from the combination of high-dose of diuretics/ARB Creatinine is stable Coding Level of Care Code Est Pt Level 4 (53084) Diagnoses Essential hypertension I10 Stage 2 chronic kidney disease N18.2 Chronic kidney disease stage: stage 2 (mild)
== END 2024-02-19 10:27 | disposition home or self-care (01) ==
PROVIDERS: PCP Physician Assistant; Visit Provider Internal Medicine Hypertension Specialist
DX: I12.9 Hypertensive chronic kidney disease with stage 1 through stage 4 chronic kidney disease, or unspecified chronic kidney disease (principal); N18.2 Chronic kidney disease, stage 2 (mild)
CPT/HCPCS: 99214

== ENCOUNTER → 2024-02-19 10:06 | Outpatient (BNVA) | payer MEDICARE, SELFPAY | PROVIDERS: PCP Physician Assistant; Visit Provider Internal Medicine Hypertension Specialist | DX: I12.9 Hypertensive chronic kidney disease with stage 1 through stage 4 chronic kidney disease, or unspecified chronic kidney disease (principal); N18.2 Chronic kidney disease, stage 2 (mild) | CPT/HCPCS: 99212 ==

== ENCOUNTER 2024-05-06 10:31 | Outpatient (REF) | payer MEDICARE, SELFPAY ==
--- OUTSIDE RECORDS SUMMARY | 2024-05-06 11:25 | XMS_ITS | Continuity of Care Document ---
Author Organization [facility] Address [address] [place] [address]- Care Team Providers Care Chairman President And Chief Executive Officer Name Role Phone Cristiano NI, Latrice Goldsmith Primary Care Physician Encounter [facility] [id number] Date(s): 03/06/24 - 04/05/24 [facility] [address] [place] [address]- Attending Physician: Admtr, Ar8 Admitting Physician: Admtr, Ar8 Referring Physician: Admtr, Ar8 Encounter Type: Triage Allergies, Adverse Reactions, Alerts Substance Criticality Severity Reaction Reaction Severity Status warfarin Active Keflex hives Active DilTIAZem Hydrochloride ER Active Immunizations Given and Recorded Vaccine Date Status Refusal Reason SARS-CoV-2 (COVID-19) mRNA BNT-162b2 vac 06/02/20 Given SARS-CoV-2 (COVID-19) mRNA BNT-162b2 vac 05/12/20 Given Medications atorvastatin 20 mg oral tablet 1 tablet = 20 mg, By Mouth, Daily at bedtime, 0 Refills, Maintenance, 08/13/13 8:31:33 AM EDT Start Date: 08/13/13 Status: Ordered Repeat number: 1 Benicar 20 mg oral tablet 1 tablet = 20 mg, By Mouth, Daily, # 30 tablet, 0 Refills, Maintenance, 07/24/16 11:29:42 AM EDT, Tablet Start Date: 07/24/16 Status: Ordered Quantity: 30.0 Unit: tablet Repeat number: 1 diltiazem 30 mg oral tablet 30 mg, 1, tablet, By Mouth, 4 times a day, first dose at 6-7pm day of discharge, # 120 tablet, Refills 2, Tot. Refills 2, Maintenance, 09/22/16 5:01:37 PM EDT, [id number] Start Date: 09/22/16 Status: Ordered Quantity: 120.0 Unit: tablet Repeat number: 3 hydrochlorothiazide-spironolactone 25 mg-25 mg oral tablet 1 tablet, By Mouth, Daily, # 90 tablet, 0 Refills, Maintenance, 03/15/23 2:10:00 PM EST, Tablet, Partial fill upon patient request if the prescription is for a schedule II opioid drug. Start Date: 03/15/23 Status: Ordered Quantity: 90.0 Unit: tablet Repeat number: 1 levothyroxine 0.025 mg oral tablet See Instructions, TAKE 1 TABLET DAILY, # 30 tablet, 2 Refills, Maintenance, 03/03/19 12:03:36 PM EST, [facility] Start Date: 03/03/19 Status: Ordered Quantity: 30.0 Unit: tablet Repeat number: 3 Metoprolol Succinate ER 100 mg oral tablet, extended release 1 tablet = 100 mg, By Mouth, Daily, # 90 tablet, 3 Refills, Maintenance, 04/01/14 11:37:19 AM EST, [facility]/pharmacy #[id number] Start Date: 04/01/14 Stop Date: 03/27/15 Status: Ordered Quantity: 90.0 Unit: tablet Repeat number: 4 Metoprolol Succinate ER 200 mg oral tablet, extended release TAKE 1 TABLET DAILY Start Date: 03/06/24 Status: Ordered Repeat number: 1 Multivitamin Daily, 0 Refills, Maintenance, 07/24/16 11:39:07 AM EDT Start Date: 07/24/16 Status: Ordered Repeat number: 1 Please check an ionized calcium on 09/25 Please check an ionized calcium on 09/25, See Instructions, # 1 each, Refills 0, Tot. Refills 0, Maintenance, Forward result to Dr. Simeon Hinton(PCP), 09/22/16 3:32:34 PM EDT, Compound Start Date: 09/22/16 Status: Ordered Quantity: 1.0 Unit: each Repeat number: 1 Pradaxa 150 mg oral capsule 1 capsule, By Mouth, 2 times a day, # 180 capsule, 3 Refills, Maintenance, 02/06/24 7:39:00 AM EST, [facility], 156.4, cm, 03/15/23 14:07:00 EST, Height Start Date: 02/06/24 Status: Ordered Quantity: 180.0 Unit: capsule Repeat number: 1 Problem List Condition Confirmation Course Effective Dates Status H ealth Status Informant Steve's thyroiditis Confirmed Active Osteoporosis, postmenopausal Confirmed Active Social History Social History Type Response Smoking Status Never (less than 100 in lifetime) entered on: 03/15/23 Sex Sex Representation Female (finding) Cardiology * Event Display: Cardiology Office Note, Non- Authored Date: Patient Care team information Care Team Personnel Name: Cristiano NI , Latrice Goldsmith Position: Reference Physician Member Role: PCP Address: [facility] [address] Telecom: Name: Fariha RN, Katie Mota Position: [facility] ED RN W/OE and Tasks Member Role: Primary Care Nurse Name: Alonso RNChandler Position: [facility] RN Member Role: Primary Care Nurse Name: Laurie RN, Estrellita Cunningham Position: [facility] AMB Nurse Member Role: Primary Care Nurse Name: Veena Orr Position: [facility] RN Member Role: Primary Care Nurse Name: Dang Munoz RN Position: [facility] RN Member Role: Primary Care Nurse Care Team Related Persons Name: FAISAL CAMARGO Name: MORENO CAMARGO Insurance Providers Guarantor name: STEPH JORGE Health Plan Information #: 1 Payer: MEDICARE PART B OUTPT Member Number: NA Policy Number: NA Group Number: NA Health Plan Information #: 2 Payer: MEDEX Member Number: NA Policy Number: NA Group Number: NA
--- OUTSIDE RECORDS SUMMARY | 2024-05-06 11:25 | XMS_ITS | Continuity of Care Document ---
Author Organization [facility] Address [address] [place] [address] [facility] Name Relationship Address Phone FAISAL CAMARGO grandmarcellus Unknown Unavailabl e STEPH PATEL Personal Relationship Unknown Malka vailable MORENO CAMARGO child Unknown Unavailable STEPH PATEL Personal Relationship Unknown Malka vailable MALENA PATEL Personal Relationship Unknown Un available Care Team Providers Care Proc Tech Name Role Phone Cristiano NI, Latrice Goldsmith Primary Care Physician Encounter [facility] Date(s): 03/06/24 - 04/05/24 [facility] [address] [place] [address]- Encounter Type: Triage Allergies, Adverse Reactions, Alerts [...] 5:01:37 PM EDT, [id number] Start Date: 09/22/16 Status: Ordered Quantity: [...] 2 Refills, Maintenance, 03/03/19 12:03:36 PM EST, [facility] Start Date: 03/03/19 Status: Ordered Quantity: 30.0 Unit: tablet Repeat number: 3 Metoprolol Succinate ER 100 mg oral tablet, extended release 1 tablet = 100 mg, By Mouth, Daily, # 90 tablet, 3 Refills, Maintenance, 04/01/14 11:37:19 AM EST, [id number] Start Date: 04/01/14 Stop Date: 03/27/15 [...] 3 Refills, Maintenance, 02/06/24 7:39:00 AM EST, [facility], 156.4, cm, 03/15/23 14:07:00 EST, Height Start Date: 02/06/24 Status: Ordered Quantity: 180.0 Unit: capsule Repeat number: 1 Problem List Condition Confirmation Course Effective Dates Status H ealth Status Informant Steve's thyroiditis Confirmed Active Osteoporosis, postmenopausal Confirmed Active Social History Social History Type Response Smoking Status Never (less than 100 in lifetime) entered on: 03/15/23 Sex Sex Representation Female (finding) Patient Care team information Care Team Personnel Name: Cristiano NI , Latrice Goldsmith Position: Reference Physician Member Role: PCP Address: [address], [place] [address] Telecom: Name: Fariha RN, Katie Mota Position: [facility] ED RN W/OE and Tasks Member Role: Primary Care Nurse Name: Chandler Gupta RN Position: [facility] RN Member Role: Primary Care Nurse Name: Estrellita Sullivan RN Position: [facility] AMB Nurse Member Role: Primary Care Nurse Name: Veena Orr Position: [facility] RN Member Role: Primary Care Nurse Name: Dang Munoz RN Position: [facility] RN Member Role: Primary Care Nurse Care Team Related Persons Name: FAISAL CAMARGO Name: MORENO CAMARGO Insurance Providers Guarantor name: STEPH PATEL Health Plan Information #: 1 Payer: MEDICARE PART B OUTPT Member Number: NA Policy Number: NA Group Number: NA Health Plan Information #: 2 Payer: MEDEX Member Number: NA Policy Number: NA Group Number: NA
--- OUTSIDE RECORDS SUMMARY | 2024-05-06 11:25 | XMS_ITS | Encounter Summary ---
Author Organization [facility] Address [address] [facility] [address] [place] [address] Phone Care Team Providers Care Greeting Card Writer Name Role Phone Heri Quinonez MD Primary Care Provider +1- [phone] Reason for Visit * Reason Comments Med Refill Encounter Details Date Type Department Care Team (Late st Contact Info) Description 02/27/2023 Refill [facility] [address] [facility] [address] [place] [address] Rocco Kent MD [address] [facility] [address] [place] [address] Social History Tobacco Use Types Packs/Day Years Used Date Smoking Tobacco: Never Smokeless Tobacco: Never Alcohol Use Standard Drinks/Week Comments No 0 (1 standard drink = 0.6 oz pur e alcohol) Comments Unknown Sex and Gender Information Value Date Recorded Sex Assigned at Not on file Legal Sex Female 5:13 PM EST Gender Identity Not on file Sexual Orientation Not on file documented as of this encounter Plan of Treatment Not on file documented as of this encounter Visit Diagnoses Not on filedocumented in this encounter Care Teams Greeting Card Writer Relationship Specialty Start Date End Date Heri Quinonez MD [address] [place] [address] PCP - General Internal Medicine 07/15/20 documented as of this encounter
--- OUTSIDE RECORDS SUMMARY | 2024-05-06 11:25 | XMS_ITS | Encounter Summary ---
Author Organization [facility] Address [address] [place] [address] Phone Care Team Providers Care Hotel Controller Name Role Phone Heri Quinonez MD Primary Care Provider +1- [phone] Reason for Visit * Reason Onset Date Comments Med Refill 08/07/2023 Encounter Details Date Type Department Care Team (Late st Contact Info) Description 08/07/2023 Refill [facility] [address] [place] [address] Mildred Fonseca Social History Tobacco Use Types Packs/Day Years [...] on filedocumented in this encounter Care Teams Hotel Controller Relationship Specialty Start Date End Date Heri Quinonez MD [address] [place] [address] PCP - General Internal Medicine 07/15/20 documented as of this encounter
--- OUTSIDE RECORDS SUMMARY | 2024-05-06 11:25 | XMS_ITS | Clinical Summary ---
Author Organization [facility] Address [address] [place] [address] Phone Care Team Providers Care Photovoltaic Panel Installer Name Role Phone Heri Quinonez MD Primary Care Provider +1- [phone] Allergies Active Allergy Reactions Criticality Noted Date Comments Cephalexin Rash,Other (see comments) Low 11/23/2016 Diltiazem 03/05/2017 Diltiazem Hcl Other (see comments) 05/20/2020 Warfarin 03/05/2017 Medications atorvastatin (LIPITOR) 20 MG tablet Take 1 tablet by mouth every night Active dabigatran etexilate (PRADAXA) 150 MG capsule Take 1 capsule by mouth 2 (two) times a day Active levothyroxine (SYNTHROID, LEVOTHROID) 25 MCG tablet Take 1 tablet by mouth 1 (one) time each day Active metoprolol succinate XL (TOPROL-XL) 200 MG 24 hr tablet Take 200 mg by mouth daily 03/23/2020 Active spironolactone- hydroCHLOROthia zide (ALDACTAZIDE) 25-25 MG per tablet Take 0.5 tablets by mouth 1 (one) time each day 90 tablet 2 09/28/2022 Active Active Problems Problem Noted Date Diagnosed Date Elevated blood pressure read ing without diagnosis of hypertension 05/20/2020 half-way current use of anticoagulant 9 Overview (07/14/2020): Last Assessment & Plan: She remains on Pradaxa for antiregulation. She has had no major bleeding episodes. Cardiac pacemaker in situ 06/25/2017 Patient encounter status 06/25/2017 Acquired hypothyroidism 03/06/2017 Persistent atrial fibrillation 03/06/2017 Overview (07/14/2020): Last Assessment & Plan: Heart rate is well controlled the office today. Continue current regimen of metoprolol 20 mg daily. She remains a properly integrated with Pradaxa. She is unaware of her arrhythmia. Sick sinus syndrome 03/06/2017 Overview (07/14/2020): Last Assessment & Plan: No device related complaints today. She will have another remote download in 3 months and we will follow-up with Dr. Koroma in 6 months. Essential hypertension 03/05/2017 Overview (07/14/2020): Last Assessment & Plan: Blood pressure is elevated in the office today, she has a bit of whitecoat syndrome. From looking in the chart it appears that this is a lower reading than she normally has. She does not check her blood pressure regularly at home and is consistently in the 100-110/70 range. No medication changes today. She follows with her general internal medicine doctor for management of her hypertension Hyperlipidemia 03/05/2017 Overview (07/14/2020): Last Assessment & Plan: Continue current statin Immunizations Name Administration Dates Next Due Influenza (IM) Preservative Free 12/11/2014 Influenza Split High Dose Pr eservative Free IM 12/14/2019,02/11/2018,12/07/2016,12/08,11/29/2012 Influenza TIV (IM) 03/13/2014, 4,12/02/2011,12/13,11/23/2009 Influenza, Trivalent, Adjuvanted 12/29/2018 Influenza, Unspecified 12/14/2019 Pfizer SARS-COV-2 06/02/2020,05/12/2020 Pneumococcal Conjugate 13-Valent 07/08/2015 Pneumococcal Polysaccharide 03/13/2014 Tdap 11/29/2012 Zoster 07/23/2018,11/06/2017 Family History Relation Status Comments Father Unknown Mother Unknown Social History Tobacco Use Types Packs/Day Years Used Date Smoking Tobacco: Never Smokeless Tobacco: Never Tobacco Cessation:Counseling Given: No Alcohol Use Standard Drinks/Week Comments No 0 (1 standard drink = 0.6 oz pur e alcohol) Comments Unknown Sex and Gender Information Value Date Recorded Sex Assigned at Not on file Legal Sex Female 5:13 PM EST Gender Identity Not on file Sexual Orientation Not on file Last Filed Vital Signs Vital Sign Reading Time Taken Comments Blood Pressure 154/90 09/28/2022 1:14 PM EDT Pulse 72 09/28/2022 1:14 PM EDT Temperature - - Respiratory Rate - - Oxygen Saturation 96% 09/28/2022 1:14 PM EDT Inhaled Oxygen Concentration - - Weight 69.9 kg (154 lb) 09/28/2022 1:14 PM EDT Height 157.5 cm (5' 2 ) 09/28/2022 1:14 PM EDT Body Mass Index 28.17 09/28/2022 1:14 PM EDT Plan of Treatment Health Maintenance Due Date Last Done Comments Influenza Vaccine (#1) 2023 0, 12/14/2019, 12/29/2018, Additional history exists Pneumococcal Vaccine: 65+ Years Completed 07/08/2015, 03/13/2014 Hepatitis B Vaccine Aged Out No longe r eligible based on patient's age to complete this topic Insurance [facility] MEDIC[facility] MED[facility] Care Teams Photovoltaic Panel Installer Relationship Specialty Start Date End Date Heri Quinonez MD [facility] [place] [address] PCP - General Internal Medicine 07/15/20
[2024-05-06 12:23] LABS: Anion Gap 14 (12-20); Blood Urea Nitrogen 24 mg/dL (9-16); Carbon Dioxide 28 mmol/L (22-29); Chloride 99 mmol/L (96-108); Estimated Glomerular Filt Rate 46; Sodium 137 mmol/L (135-145)
== END 2024-05-06 10:32 | disposition home or self-care (01) ==
LOC: HO.10HDL 10:31
PROVIDERS: Visit Provider Internal Medicine Hypertension Specialist
DX: I10 Essential (primary) hypertension (principal)
CPT/HCPCS: 36415; 80051; 82310; 82565; 84520

== ENCOUNTER 2024-06-17 10:06 | Outpatient (AMB) | payer MEDICARE, SELFPAY ==
--- NOTE | 2024-06-17 10:09 | HO.NEPHOV ---
Vital Signs 06/17/24 10:15 Height 5 ft 1 in Weight 155 lb BMI 29.3 BP 142/84 H Blood Pressure Location Rt brachial Position Sitting Intake Visit Reasons: CKD Cylinder Block Mechanic Required: No Accompanied by: Self / Same As Patient Allergies cephalexin [Keflex] Allergy (Unknown, Verified 06/17/24 10:16) rash warfarin Allergy (Unknown, Verified 06/17/24 10:16) rash HPI Comments Details: Vonnie elderly woman well known to me. She has a history of hypertension with superimposed white coat effect. She has been monitoring her blood pressure at home. Overall blood pressure seems well controlled at home. In fact some of the readings are rather low and worrisome. Home BP is rather low SBP at 100 10/05/2023. Vonnie is here today because of itching. She has had itching with rash for the last 2 weeks. She is taking triamcinolone cream which seems to be helping. She thinks it could be from the spironolactone. However she has been on spironolactone hydrochlorothiazide for the last 2-3 months. No new medications have been added. During her last visit olmesartan was decreased from 40 mg down to 20 mg a day due to low blood pressure. She is monitoring blood pressure at home systolic blood pressure is still relatively low in the range of 102/103 mm Hg. She is asymptomatic 10/29/23; c/o fatigue; Home BP elevated 11/22/23 ;Home readings are good; Relatively low readings in the afternoon 02/19/24; Currently on Benicar 40 mg half tab in evening along with aldactazide Haf tab in AM Home BP is excellent; Occasional low readings After decreasing Jarad with Vit D to QOD due to high Ca of 10.5. 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 Daughter No problems noted. Son No problems noted. Social History Household Members: None Housing: House Alcohol intake: never Patient Tobacco Use Status: Never used Tobacco e-Cigarette/Vaping Use: Never Used Second Hand Smoke Exposure: No service: No Current occupational status: previously employed and retired Cognitive needs: No Hearing needs: No Vision needs: Yes Physical Exam Vital Signs: Last Vital Signs BP 142/84 H 06/17/24 10:15 BMI result Body Mass Index 29.3 Const General: comfortable; No acute distress Orientation/consciousness: patient oriented x3 Eyes General: appearance normal, both eyes and all related structures Visual Barcenas: normal visual barcenas by confrontation Neck Neck: Yes supple and Yes no JVD Resp Effort & Inspection: normal respiratory effort and respiratory effort not decreased Cardio Palpation: no palpable S3 and no palpable S4 Heart sounds: no rubs GI Inspection: Yes normal to inspection Palpation (GI): Soft to palpation Percussion: Yes normal to percussion Auscultation: normal bowel sounds General: Yes no CVA tenderness Back/Spine/Pelvis Back: no CVA tenderness Skin General skin exam: no petechiae and no purpura Neuro General: patient oriented x3 and no focal motor deficits Extrem General: No clubbing and No edema Results Reviewed Nephrology Results: Hgb 15.5 g/dl (12.0-16.0) 01/24/24 WBC 5.6 X10*3/uL (4.8-10.8) 01/24/24 Plt Count 241 X10*3/uL (160-400) 01/24/24 Sodium 137 mmol/L (135-145) 05/06/24 Potassium 4.0 mmol/L (3.3-5.1) 05/06/24 Chloride 99 mmol/L (96-108) 05/06/24 Carbon Dioxide 28 mmol/L (22-29) 05/06/24 BUN 24 mg/dL (9-16) H 05/06/24 Creatinine 1.11 mg/dL (0.5-1.4) 05/06/24 Calcium 10.0 mg/dL (8.4-10.2) 05/06/24 Assessment & Plan Assessment & Plan (1) Essential hypertension: Code(s): I10 - Essential (primary) hypertension Category: Medical Plan: Elderly woman with the longstanding hypertension with superimposed white coat effect. Based on the home blood pressure readings blood pressure is well controlled. 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 There could be a component of BOLA due to hypoperfusion from the combination of high-dose of diuretics/ARB Creatinine bumped up Probably from hypoperfusion ? is it related to Pradaxa Will recheck Orders: Orders Basic Metabolic Panel Today N18.2 - Chronic kidney disease, stage 2 (mild) Scribe Plan - Not visible on output: Birgit: [phone] Coding Level of Care Code Est Pt Level 4 (63987) Diagnoses Essential hypertension I10 Stage 2 chronic kidney disease N18.2 Chronic kidney disease stage: stage 2 (mild)
[2024-06-17 10:15] VITALS: BP 142/84; BMI 29.3
--- OUTSIDE RECORDS SUMMARY | 2024-06-17 11:33 | XMS_ITS | Continuity of Care Document ---
Author Organization [facility] Address [address] [place] [address]- Care Team Providers Care Sample Tester Name Role Phone Cristiano NI, Latrice Goldsmith Primary Care Physician Encounter [facility] AC[facility] R [id number] Date(s): 12/07/23 - 05/17/24 [facility] [address] [place] [address]- Attending Physician: Thien Bolden MD Admitting Physician: Thien Bolden MD Encounter Type: Pre-OutPatient One Time Allergies, Adverse Reactions, Alerts Substance Criticality Severity [...] 5:01:37 PM EDT, [id number] Start Date: 09/22/16 Status: Ordered Quantity: [...] 2 Refills, Maintenance, 03/03/19 12:03:36 PM EST, [facility] Start Date: 03/03/19 Status: Ordered Quantity: 30.0 Unit: tablet Repeat number: 3 Metoprolol Succinate ER 100 mg oral tablet, extended release 1 tablet = 100 mg, By Mouth, Daily, # 90 tablet, 3 Refills, Maintenance, 04/01/14 11:37:19 AM EST, [id number] Start Date: 04/01/14 Stop Date: 03/27/15 [...] day, # 180 capsule, 3 Refills, Maintenance, 05/16/24 1:31:00 PM EST, [facility], 156.4, cm, 03/06/24 14:22:00 EST, Height Start Date: 05/16/24 Status: Ordered Quantity: 180.0 Unit: capsule Repeat number: 4 Problem List Condition Confirmation Course Effective Dates Status H ealth Status Informant Steve's thyroiditis Confirmed Active Osteoporosis, postmenopausal Confirmed Active Social History Social History Type Response Smoking Status Never (less than 100 in lifetime) entered on: 03/15/23 Sex Sex Representation Female (finding) Patient Care team information Care Team Personnel Name: Cristiano NI , Latrice Goldsmith Position: Reference Physician Member Role: PCP Address: [facility] [address] Telecom: Name: Fariha RN, Katie Mota Position: [facility] ED RN W/OE and Tasks Member Role: Primary Care Nurse Name: Chandler Gupta RN Position: [facility] ED RN W/OE and Tasks Member Role: Primary Care Nurse Name: Estrellita Sullivan RN Position: [facility] AMB Nurse Member Role: Primary Care Nurse Name: Veena Orr Position: [facility] RN Member Role: Primary Care Nurse Name: Dang Munoz RN Position: [facility] RN Member Role: Primary Care Nurse Care Team Related Persons Name: FAISAL CAMARGO Name: MORENO CAMARGO Insurance Providers Guarantor name: STEPH JORGE Health Plan Information #: 2 Payer: [employer]UE MEDICARE SUPPL Member Number: [id number] Policy Number: NA Group Number: [id number] Health Plan Information #: 3 Payer: MEDEX Member Number: [id number] Policy Number: NA Group Number: NA Health Plan Information #: 1 Payer: MEDICARE PART B OUTPT Member Number: [id number] Policy Number: NA Group Number: NA
--- OUTSIDE RECORDS SUMMARY | 2024-06-17 11:33 | XMS_ITS | Encounter Summary ---
Author Organization [facility] Address [address] [facility] [address] [place] [address] Phone Care Team Providers Care Client Hr Manager Name Role Phone Heri Quinonez MD Primary Care Provider +1- [phone] Reason for Visit * Reason Comments Med Refill Encounter Details Date Type Department Care Team (Late st Contact Info) Description 02/27/2023 Refill [facility] [address] [facility] [address] [place] [address] Rocco Kent MD [address] [facility] [address] [place] [address] Social History Tobacco Use Types [...] on filedocumented in this encounter Care Teams Client Hr Manager Relationship Specialty Start Date End Date Heri Quinonez MD [address] [place] [address] PCP - General Internal Medicine 07/15/20 documented as of this encounter
--- OUTSIDE RECORDS SUMMARY | 2024-06-17 11:33 | XMS_ITS | Clinical Summary ---
Author Organization [facility] Address [address] [place] [address] Phone Care Team Providers Care Process Consultant Name Role Phone Heri Quinonez MD Primary Care Provider +1- [phone] Allergies Active Allergy Reactions Criticality Noted Date [...] read ing without diagnosis of hypertension 05/20/2020 termite renewal inspector current use of anticoagulant 9 Overview (07/14/2020): [...] medication changes today. She follows with her precision optics technician for management of her hypertension Hyperlipidemia 03/05/2017 [...] patient's age to complete this topic Insurance [facility] MEDICARE [facility] MEDIC[facility] Care Teams Process Consultant Relationship Specialty Start Date End Date Heri Quinonez MD [place] [address] PCP - General Internal Medicine 07/15/20
--- OUTSIDE RECORDS SUMMARY | 2024-06-17 11:33 | XMS_ITS | Continuity of Care Document ---
Author Organization [facility] Address [address] [place] [address] [facility] Name Relationship Address Phone FAISAL CAMARGO grandmarcellus Unknown Unavailabl e STEPH PATEL Personal Relationship Unknown Malka vailable MORENO CAMARGO child Unknown Unavailable STEPH PATEL Personal Relationship Unknown Malka vailable MALENA PATEL Personal Relationship Unknown Un available Care Team Providers Care Planner Intern Name Role Phone Cristiano NI, Latrice Goldsmith Primary Care Physician Encounter [facility] Date(s): 05/07/24 - 06/06/24 [facility] [address] [place] [address]- Attending Physician: Admtr ArRiki Admitting Physician: Admtr, Ar8 Referring Physician: Admtr, [...] 5:01:37 PM EDT, [id number] Start Date: 09/22/16 Status: Ordered [...] 2 Refills, Maintenance, 03/03/19 12:03:36 PM EST, [facility] Start Date: 03/03/19 Status: Ordered Quantity: 30.0 Unit: tablet Repeat number: 3 Metoprolol Succinate ER 100 mg oral tablet, extended release 1 tablet = 100 mg, By Mouth, Daily, # 90 tablet, 3 Refills, Maintenance, 04/01/14 11:37:19 AM EST, [id number] Start Date: 04/01/14 Stop Date: 03/27/15 [...] 3 Refills, Maintenance, 05/16/24 1:31:00 PM EST, [facility], 156.4, cm, 03/06/24 14:22:00 EST, [...] Position: Reference Physician Member Role: PCP Address: [address] [place] [address] Telecom: Name: Fariha RN, Katie Mota Position: [facility] ED RN W/OE and Tasks Member Role: Primary Care Nurse Name: Alonso RNChandler Position: [facility] RN Member Role: Primary Care Nurse Name: Estrellita Sullivan RN Position: [facility] AMB Nurse Member Role: Primary Care Nurse Name: Veena Orr Position: [facility] RN Member Role: Primary Care Nurse Name: Dang Munoz RN Position: [facility] RN Member Role: Primary Care Nurse Care Team Related Persons Name: FAIASL CAMARGO Name: MORENO CAMARGO Insurance Providers Guarantor name: STEPH SMITHJUANElena Health Plan Information #: 1 Payer: MEDICARE PART B OUTPT Member Number: NA Policy Number: NA Group Number: NA Health Plan Information #: 2 Payer: MEDEX Member Number: NA Policy Number: NA Group Number: NA
--- OUTSIDE RECORDS SUMMARY | 2024-06-17 11:33 | XMS_ITS | Continuity of Care Document ---
Author Organization [facility] Address [address] [place] [address]- Care Team Providers Care Field Foreman Name Role Phone Cristiano NI, Latrice Goldsmith Primary Care Physician [place] [facility] Date(s): 05/16/24 - 06/15/24 [facility] [address] [place] [address]- Encounter Type: Triage Allergies, Adverse Reactions, Alerts [...] Quantity: 30.0 Unit: tablet Repeat number: 1 dabigatran 150 mg oral capsule 1 capsule = 150 mg, By Mouth, 2 times a day, # 180 capsule, 3 Refills, Maintenance, 06/09/24 4:36:00PM EDT, [facility], Partial fill upon patient request if the prescription isfor a schedule II opioid drug., 156.4, cm, 03/06/24 14:22:00 EST, Height Start Date: 06/09/24 Stop Date: 06/04/25 Status: Ordered Quantity: 180.0 Unit: capsule Repeat number: 4 diltiazem 30 mg oral tablet 30 mg, 1, tablet, By Mouth, 4 times a day, first dose at 6-7pm day of discharge, # 120 tablet, Refills 2, Tot. Refills 2, Maintenance, 09/22/16 5:01:37 PM EDT, [id number] Start Date: 09/22/16 Status: Ordered Quantity: [...] 2 Refills, Maintenance, 03/03/19 12:03:36 PM EST, [facility] Start Date: 03/03/19 Status: Ordered Quantity: 30.0 Unit: tablet Repeat number: 3 Metoprolol Succinate ER 100 mg oral tablet, extended release 1 tablet = 100 mg, By Mouth, Daily, # 90 tablet, 3 Refills, Maintenance, 04/01/14 11:37:19 AM EST, [id number] Start Date: 04/01/14 Stop Date: 03/27/15 [...] Quantity: 1.0 Unit: each Repeat number: 1 Problem List Condition Confirmation [...] Position: Reference Physician Member Role: PCP Address: [address] [place] [address] Telecom: Name: Fariha HDZ, Katie Mota Position: [facility] ED RN W/OE and Tasks Member Role: Primary Care Nurse Name: Chandler Gupta RN Position: [facility] RN Member Role: Primary Care Nurse Name: Estrellita Sullivan RN Position: [facility] AMB Nurse Member Role: Primary Care Nurse Name: Veena Orr Position: [facility] RN Member Role: Primary Care Nurse Name: Dang Munoz RN Position: [facility] RN Member Role: Primary Care Nurse Care Team Related Persons Name: FAISAL CAMARGO Name: MORENO CAMARGO Insurance Providers Guarantor name: STEPH GIORGIOElena Health Plan Information #: 1 Payer: MEDICARE PART B OUTPT Member Number: NA Policy Number: NA Group Number: NA Health Plan Information #: 2 Payer: MEDEX Member Number: NA Policy Number: NA Group Number: NA
--- OUTSIDE RECORDS SUMMARY | 2024-06-17 11:33 | XMS_ITS | Continuity of Care Document ---
Author Organization [facility] Address [address] [place] [address]- [facility] Name Relationship Address Phone FAISAL CAMARGO grandmarcellus Unknown Unavailabl e STEPH PATEL Personal Relationship Unknown Malka vailable MORENO CAMARGO child Unknown Unavailable STEPH PATEL Personal Relationship Unknown Malka vailable MALENA PATEL Personal Relationship Unknown Un available Care Team Providers Care Trademark Paralegal Name Role Phone Cristiano NI, Latrice Goldsmith Primary [facility] Phys[id number] Date(s): 01/25/24 - 05/24/24 [facility] [address] [place] [address]- Attending Physician: Thien Bolden MD Admitting Physician: Thien Bolden MD Referring Physician: Latrice Quinonez MD Encounter Type: Pre-OutPatient One Time Allergies, [...] 5:01:37 PM EDT, [id number] Start Date: 09/22/16 Status: Ordered Quantity: [...] Refills, Maintenance, 03/03/19 12:03:36 PM EST, [facility] Start Date: 03/03/19 Status: Ordered Quantity: 30.0 Unit: tablet Repeat number: 3 Metoprolol Succinate ER 100 mg oral tablet, extended release 1 tablet = 100 mg, By Mouth, Daily, # 90 tablet, 3 Refills, Maintenance, 04/01/14 11:37:19 AM EST, [id number] Start Date: 04/01/14 Stop Date: 03/27/15 [...] 3 Refills, Maintenance, 05/16/24 1:31:00 PM EST, [facility], 156.4, cm, 03/06/24 14:22:00 EST, [...] Position: Reference Physician Member Role: PCP Address: [address] [place] [address] Telecom: Name: Fariha RN, Katie Mota Position: [facility] ED RN W/OE and Tasks Member Role: Primary Care Nurse Name: Chandler Gupta RN Position: S RN Member Role: Primary Care Nurse Name: Estrellita Sullivan RN Position: [facility] AMB Nurse Member Role: Primary Care Nurse Name: Veena Orr Position: [facility] RN Member Role: Primary Care Nurse Name: Dang Munoz RN Position: [facility] RN Member Role: Primary Care Nurse Care Team Related Persons Name: FAISAL CAMARGO Name: MORENO CAMARGO Insurance Providers Guarantor name: STEPH PATEL Health Plan Information #: 1 Payer: MEDICARE PART B OUTPT Member Number: [id number] Policy Number: NA Group Number: NA Health Plan Information #: 3 Payer: MEDEX Member Number: [id number] Policy Number: NA Group Number: NA Health Plan Information #: 2 Payer: BLUE MEDICARE SUPPL Member Number: [id number] Policy Number: NA Group Number: [id number]
--- OUTSIDE RECORDS SUMMARY | 2024-06-17 11:33 | XMS_ITS | Encounter Summary ---
Author Organization [facility] Address [address] [place] [address] Phone Care Team Providers Care Maintenance Mechanic Name Role Phone Heri Quinonez MD Primary Care Provider +1- [phone] Reason for Visit * Reason Onset Date Comments Med Refill 08/07/2023 Encounter Details Date Type Department Care Team (Late st Contact Info) Description 08/07/2023 Refill [facility] [address] [place] [address] Mildred Fonseca Social History Tobacco [...] on filedocumented in this encounter Care Teams Maintenance Mechanic Relationship Specialty Start Date End Date Heri Quinonez MD [address] [place] [address] PCP - General Internal Medicine 07/15/20 documented as of this encounter
== END 2024-06-17 10:29 | disposition home or self-care (01) ==
LOC: HO.HKA 10:07
PROVIDERS: PCP Physician Assistant; Visit Provider Internal Medicine Hypertension Specialist
DX: I12.9 Hypertensive chronic kidney disease with stage 1 through stage 4 chronic kidney disease, or unspecified chronic kidney disease (principal); N18.2 Chronic kidney disease, stage 2 (mild)
CPT/HCPCS: 99214

== ENCOUNTER 2024-06-17 10:43 | Outpatient (REF) | payer MEDICARE, SELFPAY ==
[2024-06-17 13:32] LABS: Anion Gap 13 (12-20); Blood Urea Nitrogen 25 mg/dL (9-16); Calcium 9.9 mg/dL (8.4-10.2); Carbon Dioxide 29 mmol/L (22-29); Chloride 99 mmol/L (96-108); Estimated Glomerular Filt Rate 49; Glucose Random 111 mg/dL (60-115); Potassium 4.1 mmol/L (3.3-5.1); Sodium 137 mmol/L (135-145)
== END 2024-06-17 10:44 | disposition home or self-care (01) ==
LOC: HO.10HDL 10:43
PROVIDERS: Visit Provider Internal Medicine Hypertension Specialist
DX: I12.9 Hypertensive chronic kidney disease with stage 1 through stage 4 chronic kidney disease, or unspecified chronic kidney disease (principal); N18.2 Chronic kidney disease, stage 2 (mild)
CPT/HCPCS: 36415; 80048; 99212

== ENCOUNTER 2024-07-09 09:19 | Outpatient (REF) | payer MEDICARE, SELFPAY ==
--- OUTSIDE RECORDS SUMMARY | 2024-07-09 09:57 | XMS_ITS | Encounter Summary ---
Author Organization [facility] Address [address] [facility] [address] [place] [address] Phone Care Team Providers Care Blind Eyeletter Name Role Phone Heri Quinonez MD Primary Care Provider +1- [phone] Reason for Visit * Reason Comments Med Refill Encounter Details Date Type Department Care Team (Late st Contact Info) Description 02/27/2023 Refill [facility] [address] [facility] [address] [place] [address] Rocco Kent MD [address] [facility] [address] [place] [address] Social History Tobacco Use Types [...] on filedocumented in this encounter Care Teams Blind Eyeletter Relationship Specialty Start Date End Date Heri Quinonez MD [address] [place] [address] PCP - General Internal Medicine 07/15/20 documented as of this encounter
--- OUTSIDE RECORDS SUMMARY | 2024-07-09 09:57 | XMS_ITS | Encounter Summary ---
Author Organization [facility] Address [address] [place] [address] Phone Care Team Providers Care Retail Warehouse Associate Name Role Phone Heri Quinonez MD Primary Care Provider +1- [phone] Reason for Visit * Reason Onset Date Comments Med Refill 08/07/2023 Encounter Details Date Type Department Care Team (Late st Contact Info) Description 08/07/2023 Refill [facility] [address] [place] [address] Mildred Fonseca Social History Tobacco [...] on filedocumented in this encounter Care Teams Retail Warehouse Associate Relationship Specialty Start Date End Date Heri Quinonez MD [address] [place] [address] PCP - General Internal Medicine 07/15/20 documented as of this encounter
--- OUTSIDE RECORDS SUMMARY | 2024-07-09 09:57 | XMS_ITS | Clinical Summary ---
Author Organization [facility] Address [address] [place] [address] Phone Care Team Providers Care Top Flavor Attendant Name Role Phone Heri Quinonez MD Primary Care Provider +1- [phone] Allergies Active Allergy Reactions Criticality Noted Date [...] read ing without diagnosis of hypertension 05/20/2020 [facility] current use of anticoagulant 9 Overview (07/14/2020): [...] medication changes today. She follows with her medical microbiologist for management of her hypertension Hyperlipidemia 03/05/2017 [...] Due Date Last Done Comments Influenza Vaccine (Season Ended) 2024 12/14/2019, 12/14/2019, 12/29/2018, Additional history exists Pneumococcal Vaccine: 65+ Years Completed 07/08/2015, 03/13/2014 Hepatitis B Vaccine Aged Out No longe r eligible based on patient's age to complete this topic Insurance [facility] MEDICARE [facility] MEDICARE Care Teams Top Flavor Attendant Relationship Specialty Start Date End Date Heri Quinonez MD [place] [address] PCP - General Internal Medicine 07/15/20
== END 2024-07-09 09:20 | disposition home or self-care (01) ==
LOC: HO.MAMMO 09:19
PROVIDERS: PCP Physician Assistant; Visit Provider Physician Assistant
DX: Z12.31 Encounter for screening mammogram for malignant neoplasm of breast (principal)
CPT/HCPCS: 77063; 77067

== ENCOUNTER → 2024-07-09 10:00 | Outpatient (BNV) | payer MEDICARE, SELFPAY | PROVIDERS: PCP Physician Assistant; Visit Provider Internal Medicine | DX: Z12.31 Encounter for screening mammogram for malignant neoplasm of breast (principal) | CPT/HCPCS: 77063; 77067 ==

== ENCOUNTER 2024-09-08 11:01 | Outpatient (AMB) | payer MEDICARE, SELFPAY ==
--- NOTE | 2024-09-08 10:58 | HO.NEPHOV_ITS ---
Vital Signs 09/08/24 11:01 Height 5 ft 1 in Weight 153 lb 2 oz BMI 28.9 BP 140/90 H Blood Pressure Location Lt brachial Position Sitting Pulse 90 Pulse Source Pulse Oximeter Pulse Oximetry (%) 100 Oxygen Delivery Method Room Air Intake Visit Reasons: FU/ LVM Network Security Consultant Required: No Accompanied by: Self / Same As Patient Allergies cephalexin [Keflex] Allergy (Unknown, Verified 09/08/24 11:00) rash warfarin Allergy (Unknown, Verified 09/08/24 11:00) rash Medication List - Last Reconciled 09/08/24 by Jason Lopez MD atorvastatin 20 mg PO DAILY 90 days dabigatran etexilate 150 mg PO BID 90 days levothyroxine 25 mcg PO QAM metoprolol succinate ER 200 mg PO DAILY 90 days olmesartan 20 mg PO .q evening spironolacton-hydrochlorothiaz 25-25 mg 0.5 tabs PO DAILY HPI Comments Details: Vonnie elderly woman well known to me. She has a history of hypertension with superimposed white coat effect. She has been monitoring her blood pressure at home. Overall blood pressure seems well controlled at home. In fact some of the readings are rather low and worrisome. Home BP is rather low SBP at 100 10/05/2023. Vonnie is here today because of itching. She has had itching with rash for the last 2 weeks. She is taking triamcinolone cream which seems to be helping. She thinks it could be from the spironolactone. However she has been on spironolactone hydrochlorothiazide for the last 2-3 months. No new medications have been added. During her last visit olmesartan was decreased from 40 mg down to 20 mg a day due to low blood pressure. She is monitoring blood pressure at home systolic blood pressure is still relatively low in the range of 102/103 mm Hg. She is asymptomatic 10/29/23; c/o fatigue; Home BP elevated 11/22/23 ;Home readings are good; Relatively low readings in the afternoon 02/19/24; Currently on Benicar 40 mg half tab in evening along with aldactazide 25/25 Haf tab in AM Home BP is excellent; Occasional low readings After decreasing Jarad with Vit D to QOD due to high Ca of 10.5. repeat CA is normal 06/17/24 Recent cr - bumped to 1.5 on May 22 Here for follow up No new meds 09/08/24 89-year-old female presenting for medication evaluation and follow-up on hypertension management. She indicates stable blood pressure readings at home, noting a recent measurement of 125/85 mmHg, but sometimes as low as 90/65 mmHg without accompanying symptoms such as dizziness or lightheadedness. In-office measurements were slightly elevated, possibly due to anxiety associated with the clinical setting. She is on a diuretic therapy but experiences pruritus potentially linked to this medication, managed with the use of moisturizer. Her lifestyle includes active engagement at a [employer], mindful dietary practices, fluid consumption within recommended levels, and limited salt intake. [facility] Medical History Osteoarthritis of hips, bilateral Need for prophylactic antibiotic Osteopenia after menopause Actinic keratosis Sick sinus syndrome Persistent atrial fibrillation Acquired hypothyroidism Hyperlipidemia Essential hypertension Surgical History Status post total hip replacement, left History of tonsillectomy Cardiac pacemaker Family History Father Medical history non-contributory Mother Medical history non-contributory Tuberculosis Sister Tuberculosis Son No problems noted. Daughter No problems noted. Son No problems noted. Social History Household Members: None Housing: House Alcohol intake: never Patient Tobacco Use Status: Never used Tobacco e-Cigarette/Vaping Use: Never Used Second Hand Smoke Exposure: No service: No Current occupational status: previously employed and retired Cognitive needs: No Hearing needs: No Vision needs: Yes Physical Exam Vital Signs: Last Vital Signs Pulse 90 09/08/24 11:01 BP 140/90 H 09/08/24 11:01 Pulse Ox 100 09/08/24 11:01 Oxygen Delivery Method Room Air 09/08/24 11:01 BMI result Body Mass Index 28.9 Const General: comfortable; No acute distress Orientation/consciousness: patient oriented x3 Eyes General: appearance normal, both eyes and all related structures Visual Weaver: normal visual weaver by confrontation Neck Neck: Yes supple and Yes no JVD Resp Effort & Inspection: normal respiratory effort and respiratory effort not decreased Cardio Palpation: no palpable S3 and no palpable S4 Heart sounds: no rubs GI Inspection: Yes normal to inspection Palpation (GI): Soft to palpation Percussion: Yes normal to percussion Auscultation: normal bowel sounds General: Yes no CVA tenderness Back/Spine/Pelvis Back: no CVA tenderness Skin General skin exam: no petechiae and no purpura Neuro General: patient oriented x3 and no focal motor deficits Extrem General: No clubbing and No edema Results Reviewed Nephrology Results: Sodium 137 mmol/L (135-145) 06/17/24 Potassium 4.1 mmol/L (3.3-5.1) 06/17/24 Chloride 99 mmol/L (96-108) 06/17/24 Carbon Dioxide 29 mmol/L (22-29) 06/17/24 BUN 25 mg/dL (9-16) H 06/17/24 Creatinine 1.05 mg/dL (0.5-1.4) 06/17/24 Calcium 9.9 mg/dL (8.4-10.2) 06/17/24 Assessment & Plan Assessment & Plan (1) Essential hypertension: Code(s): I10 - Essential (primary) hypertension Category: Medical Plan: Elderly woman with the longstanding hypertension with superimposed white coat effect. Based on the home blood pressure readings blood pressure is well controlled. 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 There could be a component of BOLA due to hypoperfusion from the combination of high-dose of diuretics/ARB Creatinine at baseline now Orders: Orders Basic Metabolic Panel 6 Months I10 - Essential (primary) hypertension, N18.2 - Chronic kidney disease, stage 2 (mild) Scribe Plan - Not visible on output: Birgit: [phone] Coding Level of Care Code Est Pt Level 4 (02283) Diagnoses Essential hypertension I10 Stage 2 chronic kidney disease N18.2 Chronic kidney disease stage: stage 2 (mild)
[2024-09-08 11:01] VITALS: BP 140/90; PULSE 90; O2SAT 100; BMI 28.9
--- OUTSIDE RECORDS SUMMARY | 2024-09-08 12:35 | XMS_ITS | Clinical Summary ---
Author Organization [facility] Address [address] [place] [address] Phone Care Team Providers Care Coordinator Skill Training Program Name Role Phone Heri Quinonez MD Primary Care Provider +1- [phone] Allergies Active Allergy Reactions Criticality Noted Date [...] read ing without diagnosis of hypertension 05/20/2020 alf current use of anticoagulant 9 Overview (07/14/2020): [...] medication changes today. She follows with her county nurse for management of her hypertension Hyperlipidemia 03/05/2017 Overview (07/14/2020): Last Assessment & Plan: Continue current statin Immunizations Immunization Administration Dates Next Due Influenza (IM) Preservative [...] 12/14/2019, 12/29/2018, Additional history exists Pneumococcal Vaccine: 50+ Years Completed 07/08/2015, 03/13/2014 Pneumococcal Vaccine: Peds (0 to 5 Years) and At-Risk Patients (6 to 49 Years) Discontinued 07/08/2015, 03/13/2014 Hepatitis B Vaccine Aged Out No longe r eligible based on patient's age to complete this topic Insurance [facility] Medicare [facility] Medicare Care Teams Coordinator Skill Training Program Relationship Specialty Start Date End Date Heri Quinonez MD [address] [place] [address] PCP - General Internal Medicine 07/15/20
== END 2024-09-08 11:10 | disposition home or self-care (01) ==
LOC: HO.HKA 11:01
PROVIDERS: PCP Physician Assistant; Visit Provider Internal Medicine Hypertension Specialist
DX: I12.9 Hypertensive chronic kidney disease with stage 1 through stage 4 chronic kidney disease, or unspecified chronic kidney disease (principal); N18.2 Chronic kidney disease, stage 2 (mild)
CPT/HCPCS: 99214

== ENCOUNTER → 2024-09-08 11:01 | Outpatient (BNVA) | payer MEDICARE, SELFPAY | PROVIDERS: PCP Physician Assistant; Visit Provider Internal Medicine Hypertension Specialist | DX: Z13.89 Encounter for screening for other disorder (principal) | CPT/HCPCS: 99212 ==

== ENCOUNTER 2024-09-08 11:20 | Outpatient (REF) | payer MEDICARE, SELFPAY ==
[2024-09-08 13:27] LABS: Hematocrit 45.2 % (37.0-47.0); Hemoglobin 15.2 g/dl (12.0-16.0); Mean Corpuscular HGB Conc 33.6 g/dl (31.0-35.0); Mean Corpuscular Hemoglobin 31.7 pg (27.0-33.0); Mean Corpuscular Volume 94.4 fL (80.0-98.0); Mean Platelet Volume 9.8 fL (9.4-12.3); Platelet Count 228 X10*3/uL (160-400); Red Blood Count 4.79 X10*6/uL (4.20-5.50); Red Cell Distribution Width 13.2 % (11.0-16.0); White Blood Count 6.7 X10*3/uL (4.8-10.8)
[2024-09-08 13:56] LABS: Alanine Aminotransferase 26 U/L (0-31); Albumin Level 4.3 g/dL (3.5-5.0); Alkaline Phosphatase 73 U/L (39-117); Anion Gap 11 (12-20); Aspartate Amino Transferase 39 U/L (5-31); Blood Urea Nitrogen 30 mg/dL (9-16); Carbon Dioxide 31 mmol/L (22-29); Chloride 99 mmol/L (96-108); Cholesterol 164 mg/dL (<200); Estimated Glomerular Filt Rate 45; Glucose Fasting 107 mg/dL (60-99); HDL Cholesterol 52 mg/dL (>40); LDL Cholesterol Calculated 94 mg/dL (<100); Potassium 3.8 mmol/L (3.3-5.1); Sodium 137 mmol/L (135-145); Total Protein 7.5 g/dL (6.5-8.0); Triglycerides 92 mg/dL (<150)
[2024-09-08 14:16] LABS: TSH reflex Free T4 2.41 uIU/mL (0.32-4.0)
== END 2024-09-08 11:21 | disposition home or self-care (01) ==
LOC: HO.10HDL 11:20
PROVIDERS: Visit Provider Physician Assistant
DX: E78.00 Pure hypercholesterolemia, unspecified (principal); E03.9 Hypothyroidism, unspecified; I12.9 Hypertensive chronic kidney disease with stage 1 through stage 4 chronic kidney disease, or unspecified chronic kidney disease; N18.2 Chronic kidney disease, stage 2 (mild); Z79.899 Other long term (current) drug therapy
CPT/HCPCS: 36415; 80053; 80061; 84443; 85027; 99212

== ENCOUNTER 2024-09-09 09:00 | Outpatient (REF) | payer MEDICARE, SELFPAY ==
--- OUTSIDE RECORDS SUMMARY | 2024-09-09 13:55 | XMS_ITS | Clinical Summary ---
Author Organization [facility] Address [address] [place] [address] Phone Care Team Providers Care Financial Intern Name Role Phone Heri Quinonez MD Primary Care Provider +1- [phone] Allergies Active Allergy Reactions Criticality Noted Date [...] read ing without diagnosis of hypertension 05/20/2020 care home current use of anticoagulant 9 Overview (07/14/2020): [...] medication changes today. She follows with her size stamper for management of her hypertension Hyperlipidemia 03/05/2017 [...] patient's age to complete this topic Insurance [facility] Medicare [facility] Medicare Care Teams Financial Intern Relationship Specialty Start Date End Date Heri Quinonez MD [address] [place] [address] PCP - General Internal Medicine 07/15/20
[2024-09-09 14:14] LABS: Microalbum/Creatinine Ratio Ur 61.1 ug/mg cr (<30)
== END 2024-09-09 09:01 | disposition home or self-care (01) ==
LOC: HO.10HDLNP 09:00
PROVIDERS: Visit Provider Physician Assistant
DX: I10 Essential (primary) hypertension (principal)
CPT/HCPCS: 82043; 82570

== ENCOUNTER 2024-12-26 09:35 | Outpatient (REF) | payer MEDICARE, SELFPAY ==
--- OUTSIDE RECORDS SUMMARY | 2024-12-26 10:35 | XMS_ITS | Encounter Summary ---
Author Organization [facility] Address [address] [place] [address] Phone Care Team Providers Care Farm Product Purchaser Name Role Phone Heri Quinonez MD Primary Care Provider +1- [phone] Reason for Visit * Reason Onset Date Comments Med Refill 08/07/2023 Encounter Details Date Type Department Care Team (Late st Contact Info) Description 08/07/2023 Refill [facility] [address] [place] [address] Mildred Fonseca Social History Tobacco [...] on filedocumented in this encounter Care Teams Farm Product Purchaser Relationship Specialty Start Date End Date Heri Quinonez MD [address] [place] [id number] PCP - General Internal Medicine 07/15/20 documented as of this encounter
--- OUTSIDE RECORDS SUMMARY | 2024-12-26 10:35 | XMS_ITS | Encounter Summary ---
Author Organization [facility] Address [address] [place] [address] Phone Care Team Providers Care Manager Rn Name Role Phone Simeon Hinton DO Primary Care Provider +1- [phone] Allison Mckeon MD, MPH Primary Care Provid er Pcp, Unknown Primary Care Provider Unavailabl e Encounter Details Date Type Department Care Team ([facility] st Contact Info) Description 06/15/2017 Ancillary [facility] [address] [place] [address] Lino Koroma MD [address] [place] [address] [email or web address] Social History Tobacco Use Types Packs/Day Years Used Date Smoking Tobacco: Never Smokeless Tobacco: Never Alcohol Use Standard Drinks/Week Comments No 0 (1 standard drink = 0.6 oz pur e alcohol) Comments Unknown Sex and Gender Information Value Date Recorded Sex Assigned at Not on file Legal Sex Female 10:14 PM EDT Gender Identity Not on file Sexual Orientation Not on file documented as of this encounter Plan of Treatment Not on file documented as of this encounter Visit Diagnoses Not on filedocumented in this encounter Care Teams Manager Rn Relationship Specialty Start Date End Date Simeon Hinton DO [address] [place] [address] PCP - General Internal Medicine 06/25/17 09/02/18 Allison Mckeon MD, MPH [address] [address] [email or web address] PCP - General Family Medicine 09/03/18 11/14/20 Pcp, Unknown PCP - General 11/15/20 documented as of this encounter Additional Source Comments The information contained in this document represents components of the legal health record. It is not the complete legal health record.[facility]
--- OUTSIDE RECORDS SUMMARY | 2024-12-26 10:35 | XMS_ITS | Clinical Summary ---
Author Organization [facility] Address [address] [place] [address] Phone Care Team Providers Care Rheumatology Specialist Name Role Phone Heri Quinonez MD Primary Care Provider +1- [phone] Allergies Active Allergy Reactions Criticality Noted Date [...] read ing without diagnosis of hypertension 05/20/2020 manager intermediate current use of anticoagulant 9 Overview (07/14/2020): [...] medication changes today. She follows with her tile molder for management of her hypertension Hyperlipidemia 03/05/2017 [...] Date Last Done Comments Influenza Vaccine (#1) 2024 0, 12/14/2019, 12/29/2018, Additional history exists Pneumococcal Vaccine: 50+ Years Completed 07/08/2015, 03/13/2014 Pneumococcal Vaccine: Peds (0 to 5 Years) and At-Risk Patients (6 to 49 Years) Discontinued 07/08/2015, 03/13/2014 Hepatitis B Vaccine Aged Out No longe r eligible based on patient's age to complete this topic Insurance [facility] Medicare [facility] Medicare Care Teams Rheumatology Specialist Relationship Specialty Start Date End Date Heri Quinonez MD [address] [place] [address] PCP - General Internal Medicine 07/15/20
--- OUTSIDE RECORDS SUMMARY | 2024-12-26 10:35 | XMS_ITS | Encounter Summary ---
Author Organization [facility] Address [address] [facility] [address] [place] [address] Phone Care Team Providers Care Math And Physics Instructor Name Role Phone Allison Mckeon MD, MPH Primary Care Provid er Pcp, Unknown Primary Care Provider Unavailabl e Encounter Details Date Type Department Care Team (Late st Contact Info) Description 06/14/2020 Procedure Pass Echo [facility] [address] [address] Social History Tobacco Use Types Packs/Day Years [...] on filedocumented in this encounter Care Teams Math And Physics Instructor Relationship Specialty Start Date End Date Allison Mckeon MD, MPH [address] [facility] [address] [place] [address] [email or web address] PCP - General Family Medicine 09/03/18 11/14/20 Pcp, Unknown PCP - General 11/15/20 documented as of this encounter Additional Source Comments The information contained in this document represents components of the legal health record. It is not the complete legal health record.[facility]
--- OUTSIDE RECORDS SUMMARY | 2024-12-26 10:36 | XMS_ITS | Encounter Summary ---
Author Organization [facility] Address [address] [facility] [address] [facility] [place] [address] Phone Care Team Providers Care Freight Handler Name Role Phone Allison Mckeon MD, MPH Primary Care Provid er Pcp, Unknown Primary Care Provider Unavailabl e Encounter Details Date Type Department Care Team (Late st Contact Info) Description 02/07/2020 Procedure Pass Non-Invasive Cardiology [address] [place] [address] Social History Tobacco Use Types Packs/Day Years [...] on filedocumented in this encounter Care Teams Freight Handler Relationship Specialty Start Date End Date Allison Mckeon MD, MPH [address] [facility] [address] [place] [address] PCP - General Family Medicine 09/03/18 11/14/20 Pcp, Unknown PCP - General 11/15/20 documented as of this encounter Additional Source Comments The information contained in this document represents components of the legal health record. It is not the complete legal health record.[facility]
--- OUTSIDE RECORDS SUMMARY | 2024-12-26 10:36 | XMS_ITS | Encounter Summary ---
Author Organization [facility] Address [address] [place] [address] Phone Care Team Providers Care Medical Oncology Physician Name Role Phone Simeon Hinton DO Primary Care Provider +1- [phone] Allison Mckeon MD, MPH Primary Care Provid er Pcp, Unknown Primary Care Provider Unavailabl e Encounter Details Date Type Department Care Team (Late st Contact Info) Description 05/28/2018 Ancillary Orders Non-Invasive Cardiology [address] [place] [address] Lino Koroma MD [address] [place] [address] [email or web address] Social History Tobacco Use Types Packs/Day Years [...] on filedocumented in this encounter Care Teams Medical Oncology Physician Relationship Specialty Start Date End Date Simeon Hinton DO [address] [place] [address] PCP - General Internal Medicine 06/25/17 09/02/18 Allison Mckeon MD, MPH [address] [address] [email or web address] PCP - General Family Medicine 09/03/18 11/14/20 Pcp, Unknown PCP - General 11/15/20 documented as of this encounter Additional Source Comments The information contained in this document represents components of the legal health record. It is not the complete legal health record.[facility]
--- OUTSIDE RECORDS SUMMARY | 2024-12-26 10:36 | XMS_ITS | Encounter Summary ---
Author Organization [facility] Address [address] [place] [address] [place] [address] Phone Care Team Providers Care Global Marketing Specialist Name Role Phone Mary JaneSimeon Primary Care Provider +1- [phone] Allison Mckeon MD, MPH Primary Care Provid er Pcp, Unknown Primary Care Provider Unavailabl e Encounter Details Date Type Department Care Team (Late st Contact Info) Description 01/24/2018 Ancillary Orders Non-Invasive Cardiology [address] [place] [address] Lino Koroma MD [address] [place] [address] [email or web address] Sick sinus syndrome Social History Tobacco Use Types Packs/Day Years [...] on file documented as of this encounter Results * DEVICE CHECK: PPM REMOTE INTERROGATION WITH TELEGRAPH INSTALLER REVIEW (01/24/2018 9:40 AM EDT) Narrative Lino Koroma MD - 01/25/2018 12:58 PM EDT Reason for appointment: Remote pacemaker interrogation HPI: Routine 3 month remote pacemaker interrogation. No device related complaints. Indication for device: SSS. Examination: Device type: Pacemaker Senior It Project Manager: Medtronic Mode: AAIR-DDDR LRL/UPL: 60/120 bpm Mode switches: 1, continuous High V rates: 0 Thresholds, impedances, and sensing stable. AF/AT: Patient is currently taking Pradaxa daily. Atrial pacin.1% Ventricular pacin.2% Battery: 6.5 yrs Normal device function. Patient to follow-up for continued monitoring every 3 months. Report prepared by Kaitlin Sepulveda RN us Lino Koroma MD CV CARDIAC SERVICES ORDER LESLIE Final Result documented in this encounter Visit Diagnoses Diagnosis Sick sinus syndrome Sinoatrial node dysfunction Sick sinus syndrome Sinoatrial node dysfunction documented in this encounter Care Teams Global Marketing Specialist Relationship Specialty Start Date End Date Simeon Hinton DO [address] [place] [address] PCP - General Internal Medicine 06/25/17 09/02/18 Allison Mckeon MD, MPH [address] [place] [address] [email or web address] PCP - General Family Medicine 09/03/18 11/14/20 Pcp, Unknown PCP - General 11/15/20 documented as of this encounter Additional Source Comments The information contained in this document represents components of the legal health record. It is not the complete legal health record.[facility]
--- OUTSIDE RECORDS SUMMARY | 2024-12-26 10:36 | XMS_ITS | Encounter Summary ---
Author Organization [facility] Address [address] [facility] [address] [place] [address] Phone Care Team Providers Care Lead Handler Name Role Phone Heri Quinonez MD Primary Care Provider +1- [phone] Reason for Visit * Reason Comments Med Refill Encounter Details Date Type Department Care Team (Late st Contact Info) Description 02/27/2023 Refill [facility] [address] [facility] [address] [place] [address] Rocco Kent MD [address] [facility] [address] [place] [address] Social History Tobacco Use Types [...] on filedocumented in this encounter Care Teams Lead Handler Relationship Specialty Start Date End Date Heri Quinonez MD [address] [place] [address] PCP - General Internal Medicine 07/15/20 documented as of this encounter
--- OUTSIDE RECORDS SUMMARY | 2024-12-26 10:36 | XMS_ITS | Encounter Summary ---
Author Organization [facility] Address [address] [place] [address] Phone Care Team Providers Care Radio Aerial Installer Name Role Phone Simeon Hinton DO Primary Care Provider +1- [phone] Allison Mckeon MD, MPH Primary Care Provid er Pcp, Unknown Primary Care Provider Unavailabl e Encounter Details Date Type Department Care Team ([facility] Contact Info) Description 01/24/2018 Ancillary [facility] [address] [place] [address] Lino Koroma MD [address] [place] [address] [email or web address] Social History Tobacco Use Types Packs/Day Years [...] on filedocumented in this encounter Care Teams Radio Aerial Installer Relationship Specialty Start Date End Date Simeon Hinton DO [address] [place] [address] PCP - General Internal Medicine 06/25/17 09/02/18 Allison Mckeon MD, MPH [address] [address] [email or web address] PCP - General Family Medicine 09/03/18 11/14/20 Pcp, Unknown PCP - General 11/15/20 documented as of this encounter Additional Source Comments The information contained in this document represents components of the legal health record. It is not the complete legal health record.[facility]
--- OUTSIDE RECORDS SUMMARY | 2024-12-26 10:36 | XMS_ITS | Encounter Summary ---
Author Organization [facility] Address [address] [place] [address] Phone Care Team Providers Care Gear Hobber Set Up Operator Name Role Phone Simeon Hinton DO Primary Care Provider +1- [phone] Allison Mckeon MD, MPH Primary Care Provid er Pcp, Unknown Primary Care Provider Unavailabl e Encounter Details Date Type Department Care Team ([facility] st Contact Info) Description 05/28/2018 Ancillary [facility] [address] [place] [address] Lino Koroma MD [address] [place] [address] [email or web address] Social History Tobacco Use Types Packs/Day Years [...] on filedocumented in this encounter Care Teams Gear Hobber Set Up Operator Relationship Specialty Start Date End Date Simeon Hinton DO [address] [place] [address] PCP - General Internal Medicine 06/25/17 09/02/18 Allison Mckeon MD, MPH [address] [address] [email or web address] PCP - General Family Medicine 09/03/18 11/14/20 Pcp, Unknown PCP - General 11/15/20 documented as of this encounter Additional Source Comments The information contained in this document represents components of the legal health record. It is not the complete legal health record.[facility]
--- OUTSIDE RECORDS SUMMARY | 2024-12-26 10:36 | XMS_ITS | Encounter Summary ---
Author Organization [facility] Address [address] [facility] [address] [place] [address] Phone Care Team Providers Care Hazardous Waste Material Technician Name Role Phone Allison Mckeon MD, MPH Primary Care Provid er Pcp, Unknown Primary Care Provider Unavailabl e Encounter Details Date Type Department Care Team (Late st Contact Info) Description 03/07/2019 Ancillary Orders Non-Invasive Cardiology [address] [place] [address] Lino Koroma MD [address] [place] [address] [email or web address] Sick sinus syndrome Social History Tobacco Use [...] * DEVICE CHECK: PPM REMOTE INTERROGATION WITH SYSTEMS REQUIREMENTS PLANNER REVIEW (03/25/2019 10:00 AM EST) Narrative Lino Koroma MD - 03/27/2019 2:21 PM EST Reason for appointment: Remote pacemaker interrogation HPI: Routine 3 month remote pacemaker interrogation. No device related complaints. Indication for device: SSS. Examination: Device type: Pacemaker Supervisor Adult Education: Medtronic Mode: VVIR LRL/UPL: 60/120 bpm High V rates: 0 Thresholds, impedances, and sensing stable. AF/AT: Patient is currently taking Pradaxa daily. Ventricular pacin.7% Battery: 5.5 yrs Additional comments: Device functioning appropriately. Normal device function. Patient to follow-up for continued monitoring every 3 months. Report prepared by Kaitlin Sepulveda RN Lino Koroma MD CV CARDIAC SERVICES ORDER LESLIE Final Result documented in this encounter Visit Diagnoses Diagnosis Sick sinus syndrome Sinoatrial node dysfunction Sick sinus syndrome Sinoatrial node dysfunction documented in this encounter Care Teams Hazardous Waste Material Technician Relationship Specialty Start Date End Date Allison Mckeon MD, MPH [address] [place], [place] [id number] [email or web address] PCP - General Family Medicine 09/03/18 11/14/20 Pcp, Unknown PCP - General 11/15/20 documented as of this encounter Additional Source Comments The information contained in this document represents components of the legal health record. It is not the complete legal health record.[facility]
--- OUTSIDE RECORDS SUMMARY | 2024-12-26 10:36 | XMS_ITS | Encounter Summary ---
Author Organization [facility] Address [address] [facility] [address] [place] [address] Phone Care Team Providers Care Commercial Portfolio Manager Name Role Phone Simeon Hinton DO Primary Care Provider +1- [phone] Allison Mckeon MD, MPH Primary Care Provid er Pcp, Unknown Primary Care Provider Unavailabl e Encounter Details Date Type Department Care Team (Latest Contact Info) Description 01/10/2018 Transcribe Orders [facility] Laboratory [address] [place] [address] Jenny Ordoñez MD [address] [facility] [address] [place] [address] [email or web address] SAPHO syndrome (Primary Dx); Acquired hypothyroidism Social History Tobacco Use Types Packs/Day Years [...] documented as of this encounter Results * 25-OH vitamin D (01/10/2018 2:32 PM EDT) 25 OH VIT D (TOTAL) 49 30 - 60 ng/mL [facility] Blood 01/10/2018 2:32 PM EDT 01/10/2018 2:37 PM EDT us Jenny Ordoñez MD LAB BLOOD ORDERABLES F inal Result Performing Organization Address City/[facility]/ZIP Co de Phone Number [address] [address] * (ABNORMAL) TSH with reflex (01/10/2018 2:32 PM EDT) TSH 4.82(H) 0.27 - 4.20 uIU/mL [facility] Blood 01/10/2018 2:32 PM EDT 01/10/2018 2:37 PM EDT us Jenny Ordoñez MD LAB BLOOD ORDERABLES F inal Result Performing Organization Address [facility]/ZIP Co de Phone Number [address] [address] documented in this encounter Visit Diagnoses Diagnosis SAPHO syndrome- Primary Traumatic spondylopathy Acquired hypothyroidism Unspecified hypothyroidism documented in this encounter Care Teams Commercial Portfolio Manager Relationship Specialty Start Date End Date Simeon Hinton DO [address] [place] [address] PCP - General Internal Medicine 06/25/17 09/02/18 Allison Mckeon MD, MPH [address] [address] [email or web address] PCP - General Family Medicine 09/03/18 11/14/20 Pcp, Unknown PCP - General 11/15/20 documented as of this encounter Additional Source Comments The information contained in this document represents components of the legal health record. It is not the complete legal health record.[facility]
--- OUTSIDE RECORDS SUMMARY | 2024-12-26 10:36 | XMS_ITS | Clinical Summary ---
Author Organization [facility] Address [address] [address] Phone Care Team Providers Care Breaker Up Machine Operator Name Role Phone Pcp, Unknown Primary Care Provider Unavailabl e Allergies Active Allergy Reactions Criticality Noted Date Comments Cephalexin Unknown 11/23/2016 Warfarin 03/05/2017 Diltiazem Hcl 03/05/2017 Medications atorvastatin (LIPITOR) 20 MG tablet 1 tablet Active levothyroxine (TIROSINT) 25 mcg Cap 1 tablet on an empty stomach in the morning Active olmesartan (BENICAR) 40 mg tablet Take 40 mg by mouth daily. Active hydroCHLOROthia zide (HYDRODIURIL) 12.5 MG tablet Take 25 mg by mouth daily. Active metoprolol succinate (TOPROL-XL) 200 MG 24 hr tabletIndicatio ns:Medication refill TAKE 1 TABLET ONCE DAILY 90 tablet 3 09/26/2019 Active PRADAXA 150 mg capsuIndication s:Medication refill TAKE 1 CAPSULE TWICE DAILY 180 capsule 3 10/07/2020 Active Active Problems Problem Noted Date Diagnosed Date manager terminal current use of anticoagulant 9 Assessment & Plan (12/16/2018 1:09 PM EDT): She remains on Pradaxa for antiregulation. She has had no major bleeding episodes. Pacemaker 06/25/2017 Encounter for monitoring digoxin therapy 018 Acquired hypothyroidism 03/06/2017 Assessment & Plan (08/11/2020 10:24 AM EDT): Continue Synthroid SSS (sick sinus syndrome) 03/06/2017 Assessment & Plan (12/16/2018 1:10 PM EDT): No device related complaints today. She will have another remote download in 3 months and we will follow-up with Dr. Koroma in 6 months. Persistent atrial fibrillation 03/06/2017 Assessment & Plan (08/11/2020 10:24 AM EDT): Continue Pradaxa Continue Toprol Assessment & Plan (12/16/2018 1:10 PM EDT): Heart rate is well controlled the office today. Continue current regimen of metoprolol 20 mg daily. She remains a properly integrated with Pradaxa. She is unaware of her arrhythmia. Hyperlipidemia 03/05/2017 Assessment & Plan (08/11/2020 10:23 AM EDT): Continue atorvastatin Assessment & Plan (12/16/2018 1:10 PM EDT): Continue current statin Essential hypertension 03/05/2017 Assessment & Plan (08/11/2020 10:24 AM EDT): Blood pressure controlled at home Twice daily self home blood pressure monitoring Continue olmesartan Continue to chlorothiazide Continue Toprol Assessment & Plan (12/16/2018 1:10 PM EDT): Blood pressure is elevated in the office today, she has a bit of whitecoat syndrome. From looking in the chart it appears that this is a lower reading than she normally has. She does not check her blood pressure regularly at home and is consistently in the 100-110/70 range. No medication changes today. She follows with her office nurse practitioner for management of her hypertension Immunizations Immunization Administration Dates Next Due COVID-19 (Pre-01/22) Pfizer Vaccine, mRNA, PF 06/02/2020,05/12/2020 INFLUENZA, SPLIT VIRUS, TRIVALENT PF 12/11/2014 INFLUENZA, SPLIT VIRUS, TRIV ALENT W/ PRESERVATIVE IM 03/13/2014,12/03/2013,12/02/2011,12/13,11/23/2009 Influenza High-Dose Quadriva lent Preservative Free IM 12/14/2019 Influenza High-Dose Trivalen t Preservative Free IM 02/11/2018,12/07/2016,12/09/2015,11/29 Influenza Trivalent Adjuvant ed Preservative free IM 12/29/2018 Pneumococcal conjugate PCV13 07/08/2015 Pneumococcal polysaccharide PPSV23 03/13/2014 Tdap 11/29/2012 Zoster recombinant 07/23/2018,11/06/2017 Social History Tobacco Use Types Packs/Day Years Used Date Smoking Tobacco: Never Smokeless Tobacco: Never Alcohol Use Standard Drinks/Week Comments No 0 (1 standard drink = 0.6 oz pur e alcohol) Education Answer Date Recorded Are you interested in more education? Not on mariely e 07/28/2022 Are you concerned about learning? Not on file 07/28/2022 No 07/28/2022 No 07/28/2022 Digital Access Answer Date Recorded No 08/26/2022 No 08/26/2022 Reliable internet access at home? Not on file 08/26/2022 Device with a working camera? Not on file Comments Unknown Sex and Gender Information Value Date Recorded Sex Assigned at Not on file Legal Sex Female 10:14 PM EDT Gender Identity Not on file Sexual Orientation Not on file Last Filed Vital Signs Vital Sign Reading Time Taken Comments Blood Pressure 138/83 08/11/2020 9:43 AM EDT Pulse 90 08/11/2020 9:43 AM EDT Temperature - - Respiratory Rate - - Oxygen Saturation 99% 08/11/2020 9:43 AM EDT Inhaled Oxygen Concentration - - Weight 68.9 kg (152 lb) 08/11/2020 9:43 AM EDT Height 157.5 cm (5' 2 ) 08/11/2020 9:43 AM EDT Body Mass Index 27.8 08/11/2020 9:43 AM EDT Plan of Treatment Health Maintenance Due Date Last Done Comments DEPRESSION SCREENING 1948 OSTEOPOROSIS SCREENING INITIAL (ONE-TIME) 02/19/2001 RSV VACCINE (1 - 1-dose 75+ series) 02/19/2011 CREATININE LEVEL 01/10/2019 01/10/2018 POTASSIUM LEVEL 01/10/2019 01/10/2018 TSH LEVEL 01/10/2019 01/10/2018 Adult Td,Tdap Booster 11/29/2022 11/29/2012 INFLUENZA VACCINE (#1) 2024 , 12/29/2018, 02/11/2018, Additional history exists COVID-19 VACCINE ( season) 2024 06/02/2020, 05/12/2020 PNEUMOCOCCAL VACCINES (50+ years) Completed 07/08/2015, 03/13/2014 ZOSTER VACCINES Completed 07/23/2018, 11/06/2017 HEPATITIS A VACCINES Aged Out No long er eligible based on patient's age to complete this topic HIB VACCINES Aged Out No longer eligi ble based on patient's age to complete this topic MENINGOCOCCAL VACCINES (ACWY) Aged Out No longer eligible based on patient's age to complete this topic MENINGOCOCCAL VACCINES (B) Aged Out N o longer eligible based on patient's age to complete this topic Medical Devices Implanted Type Area Natural Sciences Professor Device Identifier Shelf Expiration Date Model / Serial / Lot Medtronic 5076-45cm Implanted:10/02 by Donte Khanna MD (Quantity not on file) Lead [employer] 5076-45 / [id number] / Medtronic 5076-52cm Implanted:10/02 by Donte Khanna MD (Quantity not on file) Lead [employer] 5076-52 / [id number] / Medtronic Advismargo Gordon [id number] Implanted:10/02 by Donte Khanna MD (Quantity not on file) Pacemaker [employer] ADVISA DR GORDON [id number] / [id number] / Procedures Procedure Name Priority Date/Time Associated Diagnosis Comments TSH WITH REFLEX Routine 01/10/2018 2:32 PM EDT SAPHO syndrome Acquired hypothyroidism BASIC METABOLIC PANEL Routine 01/10/2018 2:32 PM EDT Persistent atrial fibrillation from Last 3 Months or Most Recently Relevant to Health Maintenance Results * (ABNORMAL) TSH with reflex (01/10/2018 2:32 PM EDT) TSH 4.82(H) 0.27 - 4.20 uIU/mL [facility] Blood 01/10/2018 2:32 PM EDT 01/10/2018 2:37 PM EDT us Jenny Ordoñez MD LAB BLOOD ORDERABLES F inal Result Performing Organization Address [facility]/ZIP Co de Phone Number [address] [address] * (ABNORMAL) Basic metabolic panel (01/10/2018 2:32 PM EDT) SODIUM 139 133 - 146 mmol/L [facility] CHLORIDE 96 96 - 108 mmol/L [facility] POTASSIUM 4.0 3.3 - 5.1 mmol/L [facility] CO2 31 21 - 35 mmol/L [facility] BUN 13 6 - 19 mg/dL [facility] CREATININE 0.70 0.5 - 1.5 mg/dL [facility] GLUCOSE 114(H) 70 - 99 mg/dL [facility] CALCIUM 9.6 8.4 - 10.3 mg/dL [facility] EGFR 81 >59 mL/min/1.7 3m2 [facility] Comment:If patient is black, multiply result by 1.159. Estimated glomerular filtration rate calculated using the CKD-EPI equation. ANION GAP 16 10 - 20 mmol/L [facility] Blood 01/10/2018 2:32 PM EDT 01/10/2018 2:37 PM EDT us Lino Koroma MD LAB BLOOD ORDERABLES Gisselle l Result [address] [address] from Last 3 Months or Most Recently Relevant to Health Maintenance Insurance MEDICARE PART A & B [employer] SUPPLEMENT MEDICARE PART A & B [employer] MEDEX SUPPLEMENT MEDICARE PART A & B [employer] MED[employer] SUPPLEMENT MEDICARE PART A & B [employer] MED[employer] SUPPLEMENT MEDICARE PART A & B [employer] MED[employer] SUPPLEMENT MEDICARE PART A & B [employer] MEDEX SUPPLEMENT MEDICARE PART A & B [facility] MEDEX SUPPLEMENT MEDICARE PART A & B [employer] MEDEX SUPPLEMENT MEDICARE PART A & B [employer] MEDEX SUPPLEMENT Care Teams Breaker Up Machine Operator Relationship Specialty Start Date End Date Pcp, Unknown PCP - General 11/15/20 Additional Source Comments The information contained in this document represents components of the legal health record. It is not the complete legal health record.[facility]
--- OUTSIDE RECORDS SUMMARY | 2024-12-26 10:36 | XMS_ITS | Encounter Summary ---
Author Organization [facility] Address [address] [place] [address] [place] [address] Phone Care Team Providers Care Log Buncher Name Role Phone Mary JaneSimeon Primary Care Provider +1- [phone] Allison Mckeon MD, MPH Primary Care Provid er Pcp, Unknown Primary Care Provider Unavailabl e Encounter Details Date Type Department Care Team (Late st Contact Info) Description 05/28/2018 Ancillary Orders Non-Invasive Cardiology [address] [place] [address] Lino Koroma MD [address] [place] [address] [email or web address] Sick sinus syndrome Social History Tobacco Use [...] * DEVICE CHECK: PPM REMOTE INTERROGATION WITH HELICOPTER UTILITY AIRCREWMAN REVIEW (05/28/2018 9:37 AM EST) Narrative Lino Koroma MD - 05/29/2018 3:53 PM EST Reason for appointment: Remote pacemaker interrogation HPI: Routine 3 month remote pacemaker interrogation. No device related complaints. Indication for device: SSS. Examination: Device type: Pacemaker Overhauler Bus Truck: Medtronic Mode: AAIR-DDDR LRL/UPL: 60/120 bpm Mode switches: 1, continuous, known High V rates: 0 Thresholds, impedances, and sensing stable. AF/AT: Patient is currently taking Pradaxa daily. Atrial pacin% Ventricular pacin% Battery: 6.5 yrs Additional comments: Device functioning appropriately. Persistent AF since 2016, ? Next office visit in July mode change to VVIR Normal device function. Patient to follow-up for continued monitoring every 3 months. Report prepared by Kaitlin Sepulveda RN us Lino Koroma MD CV CARDIAC SERVICES ORDER LESLIE Final Result documented in this encounter Visit Diagnoses Diagnosis Sick sinus syndrome Sinoatrial node dysfunction Sick sinus syndrome Sinoatrial node dysfunction documented in this encounter Care Teams Log Buncher Relationship Specialty Start Date End Date Simeon Hinton DO [address] [place] [address] PCP - General Internal Medicine 06/25/17 09/02/18 Allison Mckeon MD, MPH [address] [place] [address] [email or web address] PCP - General Family Medicine 09/03/18 11/14/20 Pcp, Unknown PCP - General 11/15/20 documented as of this encounter Additional Source Comments The information contained in this document represents components of the legal health record. It is not the complete legal health record.[facility]
--- OUTSIDE RECORDS SUMMARY | 2024-12-26 10:36 | XMS_ITS | Encounter Summary ---
Author Organization [facility] Address [address] [place] [address] [place] [phone] Phone Care Team Providers Care Complaint Clerk Name Role Phone Mary JaneSimeon Primary Care Provider +1- [phone] Allison Mckeon MD, MPH Primary Care Provid er Pcp, Unknown Primary Care Provider Unavailabl e Encounter Details Date Type Department Care Team (Late st Contact Info) Description 06/15/2017 Ancillary Orders Non-Invasive Cardiology [address] [place] [address] Lino Koroma MD [address] [place] [address] [email or web address] Sick sinus syndrome Social History Tobacco [...] this encounter Results * DEVICE CHECK: PPM IN-HOME INTERROGATION (06/15/2017 3:53 PM EDT) Narrative Lino Koroma MD - 06/18/2017 5:10 PM EDT CC: Device check -dual chamber pacemaker HPI: Vonnie Yepez is here for program evaluation of Medtronic dual-chamber pacemaker. No device related complaints. Indication for device: SSS. Please see full scanned interrogation details associated with today's date. Device Check: Device Type: Pacemaker Director Of Financial Aid:Medtronic Battery: 3.1 V Mode: MVPR LRL/URL: 60/120bpm AP: Less than 1% HAND ENDBAND CUTTER: 96.9% AF burden: 100% AT/AF: Patient is currently taking Pradaxa. Lead impedances, sensing, and thresholds testing all within normal parameters. There were no alerts, automatic mode switches, or ventricular high rate episodes. Assessment: SSS Plan: Programming evaluation completed today with iterative adjustment of the implantable device to test the function and select optimal permanent program values with analysis, review and report. Normal device function with no device related complaints. Was reviewed with my supervising physician. Patient to follow-up for continued monitoring. Coy Lopez NP Lino Koroma MD [facility] Final Result documented in this encounter Visit Diagnoses Diagnosis Sick sinus syndrome Sinoatrial node dysfunction Sick sinus syndrome Sinoatrial node dysfunction documented in this encounter Care Teams Complaint Clerk Relationship Specialty Start Date End Date Mary Jane Simeonjesenia Hopkins DO [address] [place] [id number] PCP - General Internal Medicine 06/25/17 09/02/18 Allison Mckeon MD, MPH [address] [place] [id number] [email or web address] PCP - General Family Medicine 09/03/18 11/14/20 Pcp, Unknown PCP - General 11/15/20 documented as of this encounter Additional Source Comments The information contained in this document represents components of the legal health record. It is not the complete legal health record.[facility]
--- OUTSIDE RECORDS SUMMARY | 2024-12-26 10:36 | XMS_ITS | Encounter Summary ---
Author Organization [facility] Address [address] [facility] [address] [place] [address] Phone Care Team Providers Care Medical Office Representative Name Role Phone Allison Mckeon MD, MPH Primary Care Provid er Pcp, Unknown Primary Care Provider Unavailabl e Encounter Details Date Type Department Care Team (Late st Contact Info) Description 11/28/2018 Ancillary [facility] [address] [place] [address] Lino Koroma MD [address] [place] [address] [email or web address] Social History Tobacco Use Types Packs/Day Years [...] filedocumented in this encounter Care Teams Medical Office Representative Relationship Specialty Start Date End Date Allison Mckeon MD, MPH [address] [facility] [address] [place] [address] PCP - General Family Medicine 09/03/18 11/14/20 Pcp, Unknown PCP - General 11/15/20 documented as of this encounter Additional Source Comments The information contained in this document represents components of the legal health record. It is not the complete legal health record.[facility]
--- OUTSIDE RECORDS SUMMARY | 2024-12-26 10:36 | XMS_ITS | Encounter Summary ---
Author Organization [facility] Address [address] [facility] [address] [place] [address] Phone Care Team Providers Care Paving Plant Operator Name Role Phone Simeon Hinton DO Primary Care Provider +1- [phone] Simeon Hinton DO Primary Care Provider +1- [phone] Allison Mckeon MD, MPH Primary Care Provid er Pcp, Unknown Primary Care Provider Unavailabl e Encounter Details Date Type Department Care Team (Latest Contact Info) Description 01/20/2017 Ancillary Orders [facility] [address] [facility] [address] Floor, [address] [place] [address] Donte Khanna MD [address] [place] [address] Diagnosis unknown Social History Tobacco Use Types Packs/Day Years Used Date Smoking Tobacco: Never Assessed Comments Unknown Sex and Gender Information Value Date Recorded Sex Assigned at Not on file Legal Sex Female 10:14 PM EDT Gender Identity Not on file Sexual Orientation Not on file documented as of this encounter Plan of Treatment Not on file documented as of this encounter Results * DEVICE CHECK: PPM IN-PERSON PROGRAMMING DUAL LEAD (02/06/2018 9:53 AM EST) Narrative Lino Koroma MD - 02/06/2018 12:36 PM EST Reason for appointment: In-office pacemaker interrogation HPI: Routine in-office pacemaker interrogation during visit with Molly, using iterative adjustment to test the function of the device and select optimal permanent programmed values. No device related complaints. Indication for device: SSS Examination: Device type: Pacemaker Geriatric Social Worker: Medtronic Mode: AAIR-DDDR LRL/URL: 60/120 bpm Thresholds, impedances, and sensing stable. High V rates: 0 Mode switches: 1 continuos AF/AT: Patient is currently taking Pradaxa daily. Atrial pacin.1% Ventricular pacin.1% Battery: 6.5 yrs RA RV LV Sensing 2.9mV 13.8mV Threshold .75V@.4ms Impedance 608 ohms 665 ohms Additional comments or changes: normal pacemaker function and stable pacing and sensing thresholds Patient will return for in-office device check in: 6 months, 3 months remote Report prepared by Kaitlin Sepulveda RN Procedure Note Lino Koroma MD - 02/06/2018 Reason for appointment: In-office pacemaker interrogation HPI: Routine in-office pacemaker interrogation during visit with Molly,using iterative adjustment to test the function of the device and selectoptimal permanent programmed values. No device related complaints. Indication for device: SSS Examination: Device type: Pacemaker Geriatric Social Worker: Medtronic Mode: AAIR-DDDR LRL/URL: 60/120 bpm Thresholds, impedances, and sensing stable. High V rates: 0 Mode switches: 1 continuos AF/AT: Patient is currently taking Pradaxa daily. Atrial pacin.1% Ventricular pacin.1% Battery: 6.5 yrs RA RV LV Sensing 2.9mV 13.8mV Threshold .75V@.4ms Impedance 608 ohms 665 ohms Additional comments or changes: normal pacemaker function and stablepacing and sensing thresholds Patient will return for in-office device check in: 6 months, 3 monthsremote Report prepared by Kaitlin Sepulveda RN Donte Khanna MD [facility] Final Result documented in this encounter Visit Diagnoses Diagnosis Diagnosis unknown Diagnosis unknown documented in this encounter Care Teams Paving Plant Operator Relationship Specialty Start Date End Date Simeon Hinton DO [address] [place] [address] PCP - General 01/18/17 04/30/17 Simeon Hinton DO [address] [place] [address] PCP - General Internal Medicine 06/25/17 09/02/18 Allison Mckeon MD, MPH [address] [place] [phone] [email or web address] PCP - General Family Medicine 09/03/18 11/14/20 Pcp, Unknown PCP - General 11/15/20 documented as of this encounter Additional Source Comments The information contained in this document represents components of the legal health record. It is not the complete legal health record.[facility]
--- OUTSIDE RECORDS SUMMARY | 2024-12-26 10:36 | XMS_ITS | Encounter Summary ---
Author Organization [facility] Address [address] [place] [address] Phone Care Team Providers Care Folder Stitcher Operator Name Role Phone Simeon Hinton DO Primary Care Provider +1- [phone] Allison Mckeon MD, MPH Primary Care Provid er Pcp, Unknown Primary Care Provider Unavailabl e Encounter Details Date Type Department Care Team ([facility] st Contact Info) Description 05/28/2018 Ancillary [facility] [address] [place] [address] iLno Koroma MD [address] [place] [address] [email or web address] Social History Tobacco Use Types Packs/Day Years [...] on filedocumented in this encounter Care Teams Folder Stitcher Operator Relationship Specialty Start Date End Date Simeon Hinton DO [address] [place] [address] PCP - General Internal Medicine 06/25/17 09/02/18 Allison Mckeon MD, MPH [address] [address] [email or web address] PCP - General Family Medicine 09/03/18 11/14/20 Pcp, Unknown PCP - General 11/15/20 documented as of this encounter Additional Source Comments The information contained in this document represents components of the legal health record. It is not the complete legal health record.[facility]
--- OUTSIDE RECORDS SUMMARY | 2024-12-26 10:36 | XMS_ITS | Encounter Summary ---
Author Organization [facility] Address [address] [facility] [address] [place] [address] Phone Care Team Providers Care Quantitative Analyst Developer Name Role Phone Allison Mckeon MD, MPH Primary Care Provid er Pcp, Unknown Primary Care Provider Unavailabl e Encounter Details Date Type Department Care Team (Late st Contact Info) Description 11/28/2018 Ancillary Orders Non-Invasive Cardiology [address] [place] [address] Lino Koroma MD [address] [place] [address] [email or web address] Sick sinus syndrome Social History Tobacco [...] * DEVICE CHECK: PPM REMOTE INTERROGATION WITH ESCROW CLOSER REVIEW (11/28/2018 4:14 PM EDT) Narrative Lino Koroma MD - 11/29/2018 12:19 PM EDT Reason for appointment: Remote pacemaker interrogation HPI: Routine 3 month remote pacemaker interrogation. No device related complaints. Indication for device: SSS. Examination: Device type: Pacemaker Gum Mixer: Medtronic Mode: VVIR LRL/UPL: 60/120 bpm High V rates: 0 Thresholds, impedances, and sensing stable. AF/AT: Patient is currently taking Pradaxa daily. Ventricular pacin.9% Battery: 6 yrs Additional comments: Device functioning appropriately. Normal device function. Patient to follow-up for continued monitoring every 3 months. Report prepared by Kaitlin Sepulveda RN Lino Koroma MD [facility]LIE Final Result documented in this encounter Visit Diagnoses Diagnosis Sick sinus syndrome Sinoatrial node dysfunction Sick sinus syndrome Sinoatrial node dysfunction documented in this encounter Care Teams Quantitative Analyst Developer Relationship Specialty Start Date End Date Allison Mckeon MD, MPH [address] [place], [place] [id number] [email or web address] PCP - General Family Medicine 09/03/18 11/14/20 Pcp, Unknown PCP - General 11/15/20 documented as of this encounter Additional Source Comments The information contained in this document represents components of the legal health record. It is not the complete legal health record.[facility]
[2024-12-26 10:50] LABS: Hematocrit 45.9 % (37.0-47.0); Hemoglobin 15.5 g/dl (12.0-16.0); Mean Corpuscular HGB Conc 33.8 g/dl (31.0-35.0); Mean Corpuscular Hemoglobin 31.4 pg (27.0-33.0); Mean Corpuscular Volume 93.1 fL (80.0-98.0); NRBC Abs Auto 0.000 X10*3/uL (0.0-0.012); NRBC Pct Auto 0.0 /100WBC (0.0-0.2); Platelet Count 273 X10*3/uL (160-400); Red Blood Count 4.93 X10*6/uL (4.20-5.50); White Blood Count 7.6 X10*3/uL (4.8-10.8)
[2024-12-26 11:35] LABS: Alanine Aminotransferase 30 U/L (0-31); Albumin Level 4.7 g/dL (3.5-5.0); Alkaline Phosphatase 79 U/L (39-117); Anion Gap 12 (12-20); Aspartate Amino Transferase 44 U/L (5-31); Blood Urea Nitrogen 25 mg/dL (9-16); Calcium 10.2 mg/dL (8.4-10.2); Carbon Dioxide 31 mmol/L (22-29); Chloride 98 mmol/L (96-108); Cholesterol 175 mg/dL (<200); Estimated Glomerular Filt Rate 45; HDL Cholesterol 60 mg/dL (>40); Potassium 4.5 mmol/L (3.3-5.1); Sodium 136 mmol/L (135-145); Total Protein 8.0 g/dL (6.5-8.0); Triglycerides 88 mg/dL (<150)
== END 2024-12-26 09:36 | disposition home or self-care (01) ==
LOC: HO.LAB 09:35
PROVIDERS: PCP Physician Assistant; Visit Provider Physician Assistant
DX: I10 Essential (primary) hypertension (principal); R73.09 Other abnormal glucose; E78.00 Pure hypercholesterolemia, unspecified; E03.9 Hypothyroidism, unspecified
CPT/HCPCS: 36415; 80053; 80061; 83036; 84443; 85027

== ENCOUNTER 2024-12-31 11:00 | Outpatient (AMB) | payer MEDICARE, SELFPAY ==
[2024-12-31 11:03] VITALS: BP 136/90; PULSE 95; TEMP 36.2; O2SAT 94; BMI 28.6
--- NOTE | 2024-12-31 11:03 | A.OFFPC_ITS ---
Vital Signs 12/31/24 11:03 Height 5 ft 1 in Weight 151 lb 4 oz BMI 28.6 BP 136/90 H Blood Pressure Location Lt brachial Position Sitting Pulse 95 Pulse Source Pulse Oximeter Temp 97.1 F Temp Source Temporal Artery Scan Pulse Oximetry (%) 94 Oxygen Delivery Method Room Air Intake Visit Reasons: follow up Allergies cephalexin (Keflex) Allergy (Unknown, Verified 12/31/24 11:11) rash warfarin Allergy (Unknown, Verified 12/31/24 11:11) rash Medication List - Last Reconciled 12/31/24 by Alan Snell PA-C atorvastatin 20 mg PO DAILY 90 days dabigatran etexilate 150 mg PO BID 90 days levothyroxine 25 mcg PO QAM metoprolol succinate ER 200 mg PO DAILY 90 days olmesartan 40 mg PO DAILY spironolacton-hydrochlorothiaz 25-25 mg 0.5 tabs PO DAILY Tobacco use date assessed: 12/31/24 Fall risk assessment: No Falls in past year Last assessed Fall Risk: 12/31/24 Dental Screening Dental Screen Date: 12/31/24 Did you have a dental visit in the last 12 months?: Yes Did you have a dental problem in the last 6 months where you did not have access to dental care?: No Was dental information given to patient?: Patient has dentist HPI follow up HPI Details Patient is 89-year-old female here today for follow-up visit. ? Patient has a medical history including hypertension, persistent AFib, hyperlipidemia hypothyroidism, osteoporosis. Concern--> reports having some ringing in her ears, on physical exam she does have cerumen impactions that were disimpacted today in office. Also The patient reports experiencing pain localized to the buttocks area, which she attributes to her age and possibly brittle bones. She describes the pain as not radiating to the legs, suggesting a localized issue rather than a widespread one. The patient has a history of poor posture, which she believes may contrib cher-ae heights to her current symptoms. .. HTN: Has a Dental Tech, Does monitor her BP at home. Patient reports better control of her blood pressure recently. She reports home blood pressures are more stable. ? Otherwise blood pressures have been much better controlled. ,, AFIB and has a pacemaker: Does? see a Abrasive Worker ( Dr Bolden) at this time.? No overt signs of bleeding. She otherwise denies any dizziness, chest discomfort, headaches or vision issues. .. Hyperlipidemia: Patient continues on moderate-dose statin therapy without side effect. most recent fasting lipid panel showing appropriate total cholesterol and LDL .. Hypothyroidism: Continues on levothyroxine 25 mcg, most recent TSH has been stable. Patient has been clinically and chemically euthyroid. Laboratory Tests 09/08/24 09/09/24 12/26/24 11: 09:00 09:50 RBC 4.93 Fasting Glucose 107 H 123 H Hemoglobin A1c % 6.3 H Cholesterol 164 175 TSH 2.41 2.65 Urine Microalbumin 129.0 [facility] Medical History (Reviewed 12/31/24 @ 11:06 by Kelin Watts [facility]) Osteoarthritis of hips, bilateral Need for prophylactic antibiotic Osteopenia after menopause Actinic keratosis Sick sinus syndrome Persistent atrial fibrillation Acquired hypothyroidism Hyperlipidemia Essential hypertension Surgical History Status post total hip replacement, left History of tonsillectomy Cardiac pacemaker Family History Father Medical history non-contributory Mother Medical history non-contributory Tuberculosis Sister Tuberculosis Son No problems noted. Daughter No problems noted. Son No problems noted. Social History Household Members: None Housing: House Alcohol intake: never Patient Tobacco Use Status: Never used Tobacco e-Cigarette/Vaping Use: Never Used Second Hand Smoke Exposure: No service: No Current occupational status: previously employed and retired Cognitive needs: No Hearing needs: No Vision needs: Yes Questionnaire PHQ-9 Over the last 2 weeks, how often have you been bothered by any of the following problems? 1. Little interest or pleasure in doing things: not at all 2. Feeling down, depressed, or hopeless: not at all 3. Trouble falling or staying asleep, or sleeping too much: not at all 4. Feeling tired or having little energy: not at all 5. Poor appetite or overeating: not at all 6. Feeling bad about yourself - or that you are a failure or have let yourself or your family down: not at all 7. Trouble concentrating on things, such as reading the newspaper or watching t elevision: not at all 8. Moving or speaking so slowly that other people could have noticed. Or the opposite - being so fidgety or restless that you have been moving around a lot more than usual: not at all 9. Thoughts that you would be better off or of hurting yourself in some way: not at all Total score: 0 Depression Screening Interpretation: Negative Depression Screening Done: Yes 59932 - PHQ-9 Billing: Yes Source: Developed by Drs. Mario Bennett, Anjana Conway, Sesar Kc and colleagues, with an educational chapincito from [employer]. Thrive Questionnaire Date Thrive assessed: 12/31/24 I am a: Patient What is your living situation today?: I have a steady place to live Within the past 12 months, did the food you bought not last and you didn't have the money to get more?: Never true Within the past 12 months, did you worry whether your food would run out before you got money to buy more?: Never true Do you have trouble paying for medicines?: No Do you have trouble getting transportation to medical appointments?: No Do you have trouble paying your heating and electricity bill?: No Do you have trouble taking care of your child, family member or friend?: No Do you have trouble with day-to-day activities such as bathing, preparing meals, shopping, managing finances, etc.?: No Are you currently unemployed and looking for a job?: No Are you interested in more education?: No Please select the resources that you would like help with: None Currently or been in a relationship where the following occur: No concerns reported THRIVE Score: 0 AUDIT C Alcohol Use Questionnaire (AUDIT-C) 1. How often do you have a drink containing alcohol?: Never 3. How often do you have six or more drinks on one occasion?: Never Total Score: 0 HANNAH-7 AMB Questionnaire HANNAH-7 Date HANNAH - 7 assessed: 12/31/24 Feeling nervous, anxious, or on edge: 0 = Not at all Not being able to stop or control worryin = Not at all Worrying too much about different things: 0 = Not at all Trouble relaxin = Not at all Being so restless that it is hard to sit still: 0 = Not at all Becoming easily annoyed or irritable: 0 = Not at all Feeling afraid as if something awful might happen: 0 = Not at all Total HANNAH-7 score (0-4 normal; 5-9 mild; 10-14 moderate; 15-21 severe): 0 Source: Developed by Drs. Mario Bennett, Anjana Conway, Sesar Kc and colleagues, with an educational chapincito from [employer]. HANNAH-7 Assessment Billing HANNAH-7 Assessment Tool: HANNAH-7 Assessment 64102 Review of Systems Const Denies headache(s) Eyes Denies loss of vision ENT Denies vertigo, Denies dizziness, Denies headache(s) and Denies sore throat Card Denies chest pain, Denies leg edema and Denies lightheadedness Resp Denies cough, Denies hemoptysis and Denies wheezing GI Denies abdominal pain, Denies melena, Denies constipation, Denies diarrhea and Denies vomiting Denies urinary frequency, Denies dysuria and Denies urinary urgency Musc Denies arthralgias, Denies joint swelling, Denies numbness and Denies tingling Neuro Denies Abnormal speech present, Denies behavioral changes, Denies vertigo, Denies dizziness, Denies headache(s), Denies loss of vision, Denies memory loss, Denies numbness and Denies tingling Psych Denies anxiety, Denies behavioral changes, Denies depression, Denies memory loss and Denies panic attacks Stevan/Lymph Denies easy bleeding and Denies easy bruising Aller/Immun Denies wheezing Physical exam (Primary Care) Vital Signs: Last Vital Signs Temp 97.1 F 12/31/24 11:03 Pulse 95 12/31/24 11:03 BP 136/90 H 12/31/24 11:03 Pulse Ox 94 12/31/24 11:03 Oxygen Delivery Method Room Air 12/31/24 11:03 BMI result Body Mass Index 28.6 Tobacco/Smoking Status: Tobacco use Status Tobacco use date assessed 12/31/24 12/31/24 11:08 Patient Tobacco Use Status Never used Tobacco 12/31/24 11:08 e-Cigarette/Vaping Use Never Used 12/31/24 11:08 PHQ-9: PHQ-9 Score PHQ-9: Total score 0 12/31/24 11:14 Depression Screening Interpretation: Negative Thrive Assessment: Date of Thrive Assessment Date Thrive assessed 12/31/24 12/31/24 11:08 Currently or been in a relationship where the following occur: No concerns reported Const General: healthy appearing, no acute distress, alert and awake Nutritional Appearance: well nourished Orientation/consciousness: oriented to person, oriented to place and oriented to time HENMT Ears: TM's normal bilaterally General nose exam: Normal nasal mucous membranes and turbinates present Eyes Conjunctivae: conjunctivae normal Sclerae: sclerae normal Pupils: Equal, round and reactive pupils present Neck Neck: Yes no lymphadenopathy and Yes no JVD Thyroid: Thyroid normal Carotids: no bruits Resp Effort & Inspection: normal respiratory effort and not tachypneic Auscultation: no crackles, no rales, no rhonchi and no wheezes Cardio Rate: regular rate Rhythm: regular rhythm Heart sounds: no murmurs and normal S1 and S2 GI Palpation (GI): Soft to palpation, nontender, no hepatomegaly and no splenomegaly Auscultation: normal bowel sounds Skin General skin exam: no rashes or lesions noted and dry skin Neuro General: oriented to person, oriented to place and oriented to time Cranial nerves: Yes Equal, round and reactive pupils present Speech: No Abnormal speech present Gait exam (Neuro): Normal gait present Motor exam (neuro): no tremor noted Extrem Right upper extremity: full ROM Left upper extremity: full ROM Right lower extremity: full ROM; no edema Left lower extremity: full ROM; no edema Psych Mental Status: mental status grossly normal Speech and movement: Normal speech and movement present Affect: normal affect Attitude: cooperative Thought process: Normal thought process present Office Procedures Cerumen Removal From which ear canal was the cerumen removed: right Removal: irrigation and otoscope w/curette Notes: patient tolerated procedure well 46841-[id number] Wax Removal by Spoon/Curette Coding Level of Care Code Est Pt Level 4 (56876) Diagnoses Sciatica, right side M54.31 Persistent atrial fibrillation I48.19 Stage 2 chronic kidney disease N18.2 Chronic kidney disease stage: stage 2 (mild) Essential hypertension I10 Pure hypercholesterolemia E78.00 Hyperlipidemia type: pure hypercholesterolemia SI (sacroiliac) joint inflammation M46.1 Impaired glucose metabolism R73.09 Right ear impacted cerumen H61.21 CPT Codes Office Procedure - CPT: 60725-Lcm Wax Removal by Spoon/Curette ([id number]) Additional Codes HANNAH-7 Assessment Billing - HANNAH-7 Assessment Tool: HANNAH-7 Assessment 14390 ([id number]) PHQ-9 - 13166 - PHQ-9 Billing: Yes ([id number]) Assessment & Plan Assessment & Plan (1) Sciatica, right side: Code(s): M54.31 - Sciatica, right side Category: Medical Plan: Patient's signs and symptoms consistent with either sciatica or SI joint dysfunction. If the pain persists, further imaging of the sacroiliac joint may be considered to evaluate for inflammation or other underlying issues. (2) Persistent atrial fibrillation: Comment: followed by Dr. Dan, status post pacemaker placed September 2016 after syncopal episode on a plane Code(s): I48.19 - Other persistent atrial fibrillation Category: Medical Plan: Patient was previously followed by bread racker though has no further follow-up. She continues on Xarelto for anticoagulation without any overt signs of bleeding. She has under rate controlled with metoprolol with good effect. We did discuss possibly getting set up with a small offset printer for further monitoring though she is still considering at this time. (3) CKD (chronic kidney disease): Code(s): N18.9 - Chronic kidney disease, unspecified Category: Medical Qualifiers: Chronic kidney disease stage: stage 2 (mild) Qualified Code(s): N18.2 - Chronic kidney disease, stage 2 (mild) Plan: Patient continues to follow Nephrology and most recent kidney function stable. Will continue to abstain from any nephrotoxins. Her blood pressure is well- maintained with metoprolol, spironolactone hydrochlorothiazide. (4) Essential hypertension: Code(s): I10 - Essential (primary) hypertension Category: Medical Plan: Patient's blood pressure acceptable today in office with current antihypertensive medication. Goal blood pressures to remain below 140/90 (5) Hyperlipidemia: Code(s): E78.5 - Hyperlipidemia, unspecified Category: Medical Qualifiers: Hyperlipidemia type: pure hypercholesterolemia Qualified Code(s): E78.00 - Pure hypercholesterolemia, unspecified Plan: Patient's most recent lipid panel showing excellent control over total cholesterol and LDL. Will continue on current dose of atorvastatin 20 mg with goal LDL to remain below 130 (6) SI (sacroiliac) joint inflammation: Code(s): M46.1 - Sacroiliitis, not elsewhere classified Category: Medical Plan: As above (7) Impaired glucose metabolism: Code(s): R73.09 - Other abnormal glucose Category: Medical Plan: Patient's fasting blood sugar and A1c in prediabetic range. Continue to be physically active. Will not start any antihyperglycemic me dication at this time due to patient's age and comorbidities. Goal A1c to remain below 6.5 (8) Right ear impacted cerumen: Code(s): H61.21 - Impacted cerumen, right ear Category: Medical Plan: As per office visit procedure Orders: Orders Lipid Panel Today E78.00 - Pure hypercholesterolemia, unspecified Microalbumin, Random (w Creat) Today I10 - Essential (primary) hypertension Comprehensive [place]. Panel Fast Today I10 - Essential (primary) hypertension TSH reflex Free T4 Today E03.9 - Hypothyroidism, unspecified XR DEXA axial skeleton Today Z78.0 - Asymptomatic menopausal state XR sacroiliac joint min 3V Today M46.1 - Sacroiliitis, not elsewhere classified Complete Blood Count no Diff Today I10 - Essential (primary) hypertension
--- OUTSIDE RECORDS SUMMARY | 2024-12-31 12:31 | XMS_ITS | Encounter Summary ---
Author Organization [facility] Address [address] [facility] [address] [place] [address] Phone Care Team Providers Care Production Wood Craftsman Name Role Phone Simeon Hinton DO Primary Care Provider +1- [phone] Allison Mckeon MD, MPH Primary Care Provid er Pcp, Unknown Primary Care Provider Unavailabl e Encounter Details Date Type Department Care Team (Latest Contact Info) Description 01/10/2018 Transcribe Orders [facility] Laboratory [address] [place] [address] Jenny Ordoñez MD [address] [place] [address] [email or web address] SAPHO syndrome (Primary Dx); Acquired hypothyroidism Social [...] D (TOTAL) 49 30 - 60 ng/mL [facility] Blood 01/10/2018 2:32 PM EDT 01/10/2018 2:37 PM EDT us Jenny Ordoñez MD LAB BLOOD ORDERABLES F inal Result Performing Organization Address City/[facility]/ZIP Co de Phone Number [address] [address] * (ABNORMAL) TSH with reflex (01/10/2018 2:32 PM EDT) TSH 4.82(H) 0.27 - 4.20 uIU/mL [facility] Blood 01/10/2018 2:32 PM EDT 01/10/2018 2:37 PM EDT us Jenny Ordoñez MD LAB BLOOD ORDERABLES F inal Result Performing Organization Address [facility]/ZIP Co de Phone Number [address] [address] documented in this encounter Visit Diagnoses Diagnosis SAPHO syndrome- Primary Traumatic spondylopathy Acquired hypothyroidism Unspecified hypothyroidism documented in this encounter Care Teams Production Wood Craftsman Relationship Specialty Start Date End Date Simeon Hinton DO [address] [place] [address] PCP - General Internal Medicine 06/25/17 09/02/18 Allison Mckeon MD, MPH [address] [address] [email or web address] PCP - General Family Medicine 09/03/18 11/14/20 Pcp, Unknown PCP - General 11/15/20 documented as of this encounter Additional Source Comments The information contained in this document represents components of the legal health record. It is not the complete legal health record.[facility]
--- OUTSIDE RECORDS SUMMARY | 2024-12-31 12:31 | XMS_ITS | Clinical Summary ---
Author Organization [facility] Address [address] [address] Phone Care Team Providers Care Institutional Custodian Name Role Phone Pcp, Unknown Primary Care [...] Active Problems Problem Noted Date Diagnosed Date MCC current use of anticoagulant 9 Assessment & [...] medication changes today. She follows with her financial services technician for management of her hypertension Immunizations Immunization [...] this topic Medical Devices Implanted Type Area Sales Operations Analyst Device Identifier Shelf Expiration Date Model / Serial / Lot Medtronic 5076-45cm Implanted:10/02 by Donte Khanna MD (Quantity not on file) Lead [employer] 5076-45 / [id number] / Medtronic 5076-52cm Implanted:10/02 by Donte Khanna MD (Quantity not on file) Lead [employer] 5076-52 / [id number] / Medtronic Advismargo Gordon [id number] Implanted:10/02 by Donte Khanna MD (Quantity not on file) Pacemaker [employer] ADVISA DR GORDON [id number] / [id number] / Procedures Procedure Name Priority Date/Time Associated Diagnosis Comments TSH WITH REFLEX Routine 01/10/2018 2:32 PM EDT SAPHO syndrome Acquired hypothyroidism BASIC METABOLIC PANEL Routine 01/10/2018 2:32 PM EDT Persistent atrial fibrillation from Last 3 Months or Most Recently Relevant to Health Maintenance Results * (ABNORMAL) TSH with reflex (01/10/2018 2:32 PM EDT) TSH 4.82(H) 0.27 - 4.20 uIU/mL [facility] Blood 01/10/2018 2:32 PM EDT 01/10/2018 2:37 PM EDT us Jenny Ordoñez MD LAB BLOOD ORDERABLES F inal Result Performing Organization Address [facility]/ZIP Co de Phone Number [address] [address] * (ABNORMAL) Basic metabolic panel (01/10/2018 2:32 PM EDT) SODIUM 139 133 - 146 mmol/L [facility] CHLORIDE 96 96 - 108 mmol/L [facility] POTASSIUM 4.0 3.3 - 5.1 mmol/L [facility] CO2 31 21 - 35 mmol/L [facility] BUN 13 6 - 19 mg/dL [facility] CREATININE 0.70 0.5 - 1.5 mg/dL [facility] GLUCOSE 114(H) 70 - 99 mg/dL [facility] CALCIUM 9.6 8.4 - 10.3 mg/dL [facility] EGFR 81 >59 mL/min/1.7 3m2 [facility] Comment:If patient is black, multiply result by 1.159. Estimated glomerular filtration rate calculated using the CKD-EPI equation. ANION GAP 16 10 - 20 mmol/L [facility] Blood 01/10/2018 2:32 PM EDT 01/10/2018 2:37 PM EDT us Lino Koroma MD LAB BLOOD ORDERABLES Gisselle l Result [address] [address] from Last 3 Months or Most Recently Relevant to Health Maintenance Insurance MEDICARE PART A & B [employer] MEDEX SUPPLEMENT MEDICARE PART A & B [employer] MEDEX SUPPLEMENT MEDICARE PART A & B [employer] MEDEX SUPPLEMENT MEDICARE PART A & B [employer] MEDEX SUPPLEMENT MEDICARE PART A & B [employer] MEDEX SUPPLEMENT MEDICARE PART A & B [employer] MEDEX SUPPLEMENT MEDICARE PART A & B [facility] MEDEX SUPPLEMENT MEDICARE PART A & B [employer] MEDEX SUPPLEMENT MEDICARE PART A & B [employer]OSS MEDEX SUPPLEMENT Care Teams Institutional Custodian Relationship Specialty Start Date End Date Pcp, Unknown PCP - General 11/15/20 Additional Source Comments The information contained in this document represents components of the legal health record. It is not the complete legal health record.[facility]
--- OUTSIDE RECORDS SUMMARY | 2024-12-31 12:31 | XMS_ITS | Encounter Summary ---
Author Organization [facility] Address [address] [facility] [address] [place] [address] Phone Care Team Providers Care Fell Cutter Name Role Phone Allison Mckeon MD, MPH Primary Care Provid er Pcp, Unknown Primary Care Provider Unavailabl e Encounter Details Date Type Department Care Team (Late st Contact Info) Description 06/14/2020 Procedure Pass Echo Lab [address] [address] Social History Tobacco Use Types Packs/Day Years [...] on filedocumented in this encounter Care Teams Fell Cutter Relationship Specialty Start Date End Date Allison Mckeon MD, MPH [address] [facility] [address] [place] [address] [email or web address] PCP - General Family Medicine 09/03/18 11/14/20 Pcp, Unknown PCP - General 11/15/20 documented as of this encounter Additional Source Comments The information contained in this document represents components of the legal health record. It is not the complete legal health record.[facility]
--- OUTSIDE RECORDS SUMMARY | 2024-12-31 12:31 | XMS_ITS | Encounter Summary ---
Author Organization [facility] Address [address] [facility] [address] [place] [address] Phone Care Team Providers Care Interventionist Name Role Phone Heri Quinonez MD Primary Care Provider +1- [phone] Reason for Visit * Reason Comments Med Refill Encounter Details Date Type Department Care Team (Late st Contact Info) Description 02/27/2023 Refill [facility] [address] [facility] [address] [place] [address] Rocco Kent MD [address] [facility] [address] [place] [address] Social History Tobacco Use Types [...] on filedocumented in this encounter Care Teams Interventionist Relationship Specialty Start Date End Date Heri Quinonez MD [address] [place] [address] PCP - General Internal Medicine 07/15/20 documented as of this encounter
--- OUTSIDE RECORDS SUMMARY | 2024-12-31 12:31 | XMS_ITS | Encounter Summary ---
Author Organization [facility] Address [address] [place] [address] Phone Care Team Providers Care Hydraulic Bull Riveter Operator Name Role Phone Simeon Hinton DO Primary Care Provider +1- [phone] Allison Mckeon MD, MPH Primary Care Provid er Pcp, Unknown Primary Care Provider Unavailabl e Encounter Details Date Type Department Care Team ([facility] st Contact Info) Description 06/15/2017 Ancillary [facility] [address] [place] [address] Lino Koroma MD [address] [place] [address] [email or web address] Social History Tobacco Use Types Packs/Day Years [...] on filedocumented in this encounter Care Teams Hydraulic Bull Riveter Operator Relationship Specialty Start Date End Date Simeon Hinton DO [address] [place] [address] PCP - General Internal Medicine 06/25/17 09/02/18 Allison Mckeon MD, MPH [address] [address] [email or web address] PCP - General Family Medicine 09/03/18 11/14/20 Pcp, Unknown PCP - General 11/15/20 documented as of this encounter Additional Source Comments The information contained in this document represents components of the legal health record. It is not the complete legal health record.[facility]
--- OUTSIDE RECORDS SUMMARY | 2024-12-31 12:31 | XMS_ITS | Clinical Summary ---
Author Organization [facility] Address [address] [place] [address] Phone Care Team Providers Care Doubler Helper Name Role Phone Heri Quinonez MD Primary Care Provider +1- [phone] Allergies Active Allergy Reactions Criticality Noted Date [...] read ing without diagnosis of hypertension 05/20/2020 pen[facility] current use of anticoagulant 9 Overview (07/14/2020): [...] medication changes today. She follows with her potato seed cutter for management of her hypertension Hyperlipidemia 03/05/2017 [...] patient's age to complete this topic Insurance [facility] Medicare [facility] Medicare Care Teams Doubler Helper Relationship Specialty Start Date End Date Heri Quinonez MD [address] [place] [phone] PCP - General Internal Medicine 07/15/20
--- OUTSIDE RECORDS SUMMARY | 2024-12-31 12:31 | XMS_ITS | Encounter Summary ---
Author Organization [facility] Address [address] [place] [address] [place] [address] Phone Care Team Providers Care Training And Development Head Name Role Phone Mary JaneSimeon Primary Care Provider +1- [phone] Allison Mckeon MD, MPH Primary Care Provid er Pcp, Unknown Primary Care Provider Unavailabl e Encounter Details Date Type Department Care Team (Late st Contact Info) Description 06/15/2017 Ancillary Orders Non-Invasive Cardiology [address] [place] [address] Lino Koroma MD [address] [place] [address] [email or web address] Sick sinus syndrome Social History Tobacco [...] today's date. Device Check: Device Type: Pacemaker Readiness Paraprofessional:Medtronic Battery: 3.1 V Mode: MVPR LRL/URL: 60/120bpm AP: Less than 1% HAND PASTER: 96.9% AF burden: 100% AT/AF: Patient is [...] dysfunction documented in this encounter Care Teams Training And Development Head Relationship Specialty Start Date End Date Mary Jane Simeonjesenia Hopkins DO [address] [place] [address] PCP - General Internal Medicine 06/25/17 09/02/18 Allison Mckeon MD, MPH [address] [place] [address] [email or web address] PCP - General Family Medicine 09/03/18 11/14/20 Pcp, Unknown PCP - General 11/15/20 documented as of this encounter Additional Source Comments The information contained in this document represents components of the legal health record. It is not the complete legal health record.[facility]
--- OUTSIDE RECORDS SUMMARY | 2024-12-31 12:31 | XMS_ITS | Encounter Summary ---
Author Organization [facility] Address [address] [place] [address] Phone Care Team Providers Care Therapeutic Consultant Name Role Phone Heri Quinonez MD Primary Care Provider +1- [phone] Reason for Visit * Reason Onset Date Comments Med Refill 08/07/2023 Encounter Details Date Type Department Care Team (Late st Contact Info) Description 08/07/2023 Refill [facility] [address] [place] [address] Mildred Fonseca Social History Tobacco [...] on filedocumented in this encounter Care Teams Therapeutic Consultant Relationship Specialty Start Date End Date Heri Quinonez MD [address] [place] [address] [phone] PCP - General Internal Medicine 07/15/20 documented as of this encounter
--- OUTSIDE RECORDS SUMMARY | 2024-12-31 12:32 | XMS_ITS | Encounter Summary ---
Author Organization [facility] Address [address] [facility] [address] [place] [address] Phone Care Team Providers Care Chief Learning Officer Name Role Phone Allison Mckeon MD, MPH Primary Care Provid er Pcp, Unknown Primary Care Provider Unavailabl e Encounter Details Date Type Department Care Team (Late st Contact Info) Description 03/07/2019 Ancillary Orders Non-Invasive Cardiology [address] [place] [address] Lino Koroma MD [address] [place] [address] [email or web address] Sick sinus syndrome Social History Tobacco [...] * DEVICE CHECK: PPM REMOTE INTERROGATION WITH ACUTE DIALYSIS REGISTERED NURSE REVIEW (03/25/2019 10:00 AM EST) Narrative Lino Koroma MD - 03/27/2019 2:21 PM EST Reason for appointment: Remote pacemaker interrogation HPI: Routine 3 month remote pacemaker interrogation. No device related complaints. Indication for device: SSS. Examination: Device type: Pacemaker Qm Nurse: Medtronic Mode: VVIR LRL/UPL: 60/120 bpm High [...] dysfunction documented in this encounter Care Teams Chief Learning Officer Relationship Specialty Start Date End Date Allison Mckeon MD, MPH [address] [place], [place] [phone] [email or web address] PCP - General Family Medicine 09/03/18 11/14/20 Pcp, Unknown PCP - General 11/15/20 documented as of this encounter Additional Source Comments The information contained in this document represents components of the legal health record. It is not the complete legal health record.[facility]
--- OUTSIDE RECORDS SUMMARY | 2024-12-31 12:32 | XMS_ITS | Encounter Summary ---
Author Organization [facility] Address [address] [place] [address] Phone Care Team Providers Care Guest Experience Captain Name Role Phone Simeon Hinton DO Primary Care Provider +1- [phone] Allison Mckeon MD, MPH Primary Care Provid er Pcp, Unknown Primary Care Provider Unavailabl e Encounter Details Date Type Department Care Team ([facility] st Contact Info) Description 05/28/2018 Ancillary [facility] [address] [place] [address] Lino Koroma MD [address] [place] [address] [email or web address] Social History Tobacco Use Types Packs/Day Years [...] on filedocumented in this encounter Care Teams Guest Experience Captain Relationship Specialty Start Date End Date Simeon Hinton DO [address] [place] [address] PCP - General Internal Medicine 06/25/17 09/02/18 Allison Mckeon MD, MPH [address] [address] [email or web address] PCP - General Family Medicine 09/03/18 11/14/20 Pcp, Unknown PCP - General 11/15/20 documented as of this encounter Additional Source Comments The information contained in this document represents components of the legal health record. It is not the complete legal health record.[facility]
--- OUTSIDE RECORDS SUMMARY | 2024-12-31 12:32 | XMS_ITS | Encounter Summary ---
Author Organization [facility] Address [address] [place] [address] [place] [address] Phone Care Team Providers Care Marketing Administrative Assistant Name Role Phone Mary JaneSimeon Primary Care Provider +1- [phone] Allison Mckeon MD, MPH Primary Care Provid er Pcp, Unknown Primary Care Provider Unavailabl e Encounter Details Date Type Department Care Team (Late st Contact Info) Description 01/24/2018 Ancillary Orders Non-Invasive Cardiology [address] [place] [address] Lino Koroma MD [address] [place] [address] [email or web address] Sick sinus syndrome Social History Tobacco Use [...] * DEVICE CHECK: PPM REMOTE INTERROGATION WITH ACTUARIAL INTERNSHIP REVIEW (01/24/2018 9:40 AM EDT) Narrative Lino Koroma MD - 01/25/2018 12:58 PM EDT Reason for appointment: Remote pacemaker interrogation HPI: Routine 3 month remote pacemaker interrogation. No device related complaints. Indication for device: SSS. Examination: Device type: Pacemaker Deep Fat Fry Cook: Medtronic Mode: AAIR-DDDR LRL/UPL: 60/120 bpm Mode [...] dysfunction documented in this encounter Care Teams Marketing Administrative Assistant Relationship Specialty Start Date End Date Simeon Hinton DO [address] [place] [address] PCP - General Internal Medicine 06/25/17 09/02/18 Allison Mckeon MD, MPH [address] [place] [address] [email or web address] PCP - General Family Medicine 09/03/18 11/14/20 Pcp, Unknown PCP - General 11/15/20 documented as of this encounter Additional Source Comments The information contained in this document represents components of the legal health record. It is not the complete legal health record.[facility]
--- OUTSIDE RECORDS SUMMARY | 2024-12-31 12:32 | XMS_ITS | Encounter Summary ---
Author Organization [facility] Address [address] [facility] [address] [place] [address] Phone Care Team Providers Care Software Deployment Engineer Name Role Phone Allison Mckeon MD, MPH Primary Care Provid er Pcp, Unknown Primary Care Provider Unavailabl e Encounter Details Date Type Department Care Team (Late st Contact Info) Description 02/07/2020 Procedure Pass Non-Invasive Cardiology [address] [place] [address] Social History Tobacco Use Types Packs/Day Years [...] on filedocumented in this encounter Care Teams Software Deployment Engineer Relationship Specialty Start Date End Date Allison Mckeon MD, MPH [address] [facility] [address] [place] [address] [email or web address] PCP - General Family Medicine 09/03/18 11/14/20 Pcp, Unknown PCP - General 11/15/20 documented as of this encounter Additional Source Comments The information contained in this document represents components of the legal health record. It is not the complete legal health record.[facility]
--- OUTSIDE RECORDS SUMMARY | 2024-12-31 12:32 | XMS_ITS | Encounter Summary ---
Author Organization [facility] Address [address] [place] [address] Phone Care Team Providers Care Unemployment Benefits Claims Taker Name Role Phone Simeon Hinton DO Primary Care Provider +1- [phone] Allison Mckeon MD, MPH Primary Care Provid er Pcp, Unknown Primary Care Provider Unavailabl e Encounter Details Date Type Department Care Team ([facility] Contact Info) Description 01/24/2018 Ancillary [facility] [address] [place] [address] Lino Koroma MD [address] [place] [address] [email or web address] Social History Tobacco Use Types Packs/Day Years [...] on filedocumented in this encounter Care Teams Unemployment Benefits Claims Taker Relationship Specialty Start Date End Date Simeon Hinton DO [address] [place] [address] PCP - General Internal Medicine 06/25/17 09/02/18 Allison Mckeon MD, MPH [address] [address] [email or web address] PCP - General Family Medicine 09/03/18 11/14/20 Pcp, Unknown PCP - General 11/15/20 documented as of this encounter Additional Source Comments The information contained in this document represents components of the legal health record. It is not the complete legal health record.[facility]
--- OUTSIDE RECORDS SUMMARY | 2024-12-31 12:32 | XMS_ITS | Encounter Summary ---
Author Organization [facility] Address [address] [place] [address] Phone Care Team Providers Care Post Graduate Intern Name Role Phone Simeon Hinton DO Primary Care Provider +1- [phone] Simeon Hinton DO Primary Care Provider +1- [phone] Allison Mckeon MD, MPH Primary Care Provid er Pcp, Unknown Primary Care Provider Unavailabl e Encounter Details Date Type Department Care Team (Latest Contact Info) Description 01/20/2017 Ancillary Orders [facility] [address] [facility] 3rd Floor, [address] [place] [address] Donte Khanna MD [address] [place] [address] Diagnosis unknown Social History Tobacco Use Types [...] for device: SSS Examination: Device type: Pacemaker Commissary Assistant: Medtronic Mode: AAIR-DDDR LRL/URL: 60/120 bpm Thresholds, [...] for device: SSS Examination: Device type: Pacemaker Commissary Assistant: Medtronic Mode: AAIR-DDDR LRL/URL: 60/120 bpm Thresholds, [...] unknown documented in this encounter Care Teams Post Graduate Intern Relationship Specialty Start Date End Date Simeon Hinton DO [address] [place] [address] PCP - General 01/18/17 04/30/17 Simeon Hinton DO [address] [place] [address] PCP - General Internal Medicine 06/25/17 09/02/18 Allison Mckeon MD, MPH [address] [place] [address] [email or web address] PCP - General Family Medicine 09/03/18 11/14/20 Pcp, Unknown PCP - General 11/15/20 documented as of this encounter Additional Source Comments The information contained in this document represents components of the legal health record. It is not the complete legal health record.[facility]
--- OUTSIDE RECORDS SUMMARY | 2024-12-31 12:32 | XMS_ITS | Encounter Summary ---
Author Organization [facility] Address [address] [facility] [address] [place] [address] Phone Care Team Providers Care Rock Star Name Role Phone Allison Mckeon MD, MPH Primary Care Provid er Pcp, Unknown Primary Care Provider Unavailabl e Encounter Details Date Type Department Care Team (Late st Contact Info) Description 11/28/2018 Ancillary [facility] [address] [place] [address] Lino Koroma MD [address] [place] [address] [email or web address] Social History Tobacco Use Types Packs/Day Years [...] on filedocumented in this encounter Care Teams Rock Star Relationship Specialty Start Date End Date Allison Mckeon MD, MPH [address] [facility] [address] [place] [address] [email or web address] PCP - General Family Medicine 09/03/18 11/14/20 Pcp, Unknown PCP - General 11/15/20 documented as of this encounter Additional Source Comments The information contained in this document represents components of the legal health record. It is not the complete legal health record.[facility]
--- OUTSIDE RECORDS SUMMARY | 2024-12-31 12:32 | XMS_ITS | Encounter Summary ---
Author Organization [facility] Address [address] [place] [address] Phone Care Team Providers Care Lens Maker Name Role Phone Simeon Hinton DO Primary Care Provider +1- [phone] Allison Mckeon MD, MPH Primary Care Provid er Pcp, Unknown Primary Care Provider Unavailabl e Encounter Details Date Type Department Care Team ([facility] st Contact Info) Description 05/28/2018 Ancillary [facility] [address] [place] [address] Lino Koroma MD [address] [place] [address] [email or web address] Social History Tobacco Use Types Packs/Day Years [...] on filedocumented in this encounter Care Teams Lens Maker Relationship Specialty Start Date End Date Simeon Hinton DO [address] [place] [address] PCP - General Internal Medicine 06/25/17 09/02/18 Allison Mckeon MD, MPH [address] [address] [email or web address] PCP - General Family Medicine 09/03/18 11/14/20 Pcp, Unknown PCP - General 11/15/20 documented as of this encounter Additional Source Comments The information contained in this document represents components of the legal health record. It is not the complete legal health record.[facility]
--- OUTSIDE RECORDS SUMMARY | 2024-12-31 12:32 | XMS_ITS | Encounter Summary ---
Author Organization [facility] Address [address] [place] [address] [place] [address] Phone Care Team Providers Care Grading Clerk Name Role Phone Mary JaneSimeon Primary Care Provider +1- [phone] Allison Mckeon MD, MPH Primary Care Provid er Pcp, Unknown Primary Care Provider Unavailabl e Encounter Details Date Type Department Care Team (Late st Contact Info) Description 05/28/2018 Ancillary Orders Non-Invasive Cardiology [address] [place] [address] Lino Koroma MD [address] [place] [address] [email or web address] Sick sinus syndrome Social History Tobacco [...] * DEVICE CHECK: PPM REMOTE INTERROGATION WITH SUSPENDER CUTTER REVIEW (05/28/2018 9:37 AM EST) Narrative Lino Koroma MD - 05/29/2018 3:53 PM EST Reason for appointment: Remote pacemaker interrogation HPI: Routine 3 month remote pacemaker interrogation. No device related complaints. Indication for device: SSS. Examination: Device type: Pacemaker Motion Pictures Cartoonist: Medtronic Mode: AAIR-DDDR LRL/UPL: 60/120 bpm Mode [...] dysfunction documented in this encounter Care Teams Grading Clerk Relationship Specialty Start Date End Date Simeon Hinton DO [address] [place] [address] PCP - General Internal Medicine 06/25/17 09/02/18 Allison Mckeon MD, MPH [address] [place] [address] [email or web address] PCP - General Family Medicine 09/03/18 11/14/20 Pcp, Unknown PCP - General 11/15/20 documented as of this encounter Additional Source Comments The information contained in this document represents components of the legal health record. It is not the complete legal health record.[facility]
--- OUTSIDE RECORDS SUMMARY | 2024-12-31 12:32 | XMS_ITS | Encounter Summary ---
Author Organization [facility] Address [address] [place] [address] Phone Care Team Providers Care Instrument Repairer Name Role Phone Simeon Hinton DO Primary Care Provider +1- [phone] Allison Mckeon MD, MPH Primary Care Provid er Pcp, Unknown Primary Care Provider Unavailabl e Encounter Details Date Type Department Care Team (Late st Contact Info) Description 05/28/2018 Ancillary Orders Non-Invasive Cardiology [address] [place] [address] Lino Koroma MD [address] [place] [address] [email or web address] Social History Tobacco Use Types Packs/Day Years [...] on filedocumented in this encounter Care Teams Instrument Repairer Relationship Specialty Start Date End Date Simeon Hinton DO [address] [place] [address] PCP - General Internal Medicine 06/25/17 09/02/18 Allison Mckeon MD, MPH [address] [address] [email or web address] PCP - General Family Medicine 09/03/18 11/14/20 Pcp, Unknown PCP - General 11/15/20 documented as of this encounter Additional Source Comments The information contained in this document represents components of the legal health record. It is not the complete legal health record.[facility]
--- OUTSIDE RECORDS SUMMARY | 2024-12-31 12:32 | XMS_ITS | Encounter Summary ---
Author Organization [facility] Address [address] [facility] [address] [place] [address] Phone Care Team Providers Care Promotions Director Name Role Phone Allison Mckeon MD, MPH Primary Care Provid er Pcp, Unknown Primary Care Provider Unavailabl e Encounter Details Date Type Department Care Team (Late st Contact Info) Description 11/28/2018 Ancillary Orders Non-Invasive Cardiology [address] [place] [address] Lino Koroma MD [address] [place] [address] [email or web address] Sick sinus syndrome Social History [...] * DEVICE CHECK: PPM REMOTE INTERROGATION WITH TRANSCRIBING OPERATOR HEAD REVIEW (11/28/2018 4:14 PM EDT) Narrative Lino Koroma MD - 11/29/2018 12:19 PM EDT Reason for appointment: Remote pacemaker interrogation HPI: Routine 3 month remote pacemaker interrogation. No device related complaints. Indication for device: SSS. Examination: Device type: Pacemaker Meat Butcher: Medtronic Mode: VVIR LRL/UPL: 60/120 bpm High [...] dysfunction documented in this encounter Care Teams Promotions Director Relationship Specialty Start Date End Date Allison Mckeon MD, MPH [address] [place], [place] [id number] [email or web address] PCP - General Family Medicine 09/03/18 11/14/20 Pcp, Unknown PCP - General 11/15/20 documented as of this encounter Additional Source Comments The information contained in this document represents components of the legal health record. It is not the complete legal health record.[facility]
== END 2024-12-31 11:40 | disposition home or self-care (01) ==
LOC: HO.HMCH 11:01
PROVIDERS: PCP Physician Assistant; Visit Provider Physician Assistant
DX: I12.9 Hypertensive chronic kidney disease with stage 1 through stage 4 chronic kidney disease, or unspecified chronic kidney disease (principal); N18.2 Chronic kidney disease, stage 2 (mild); I48.19 Other persistent atrial fibrillation; M54.31 Sciatica, right side; E78.00 Pure hypercholesterolemia, unspecified; M46.1 Sacroiliitis, not elsewhere classified; R73.09 Other abnormal glucose; H61.21 Impacted cerumen, right ear

== ENCOUNTER → 2024-12-31 11:00 | Outpatient (BNVA) | payer MEDICARE, SELFPAY | PROVIDERS: PCP Physician Assistant; Visit Provider Physician Assistant | DX: I12.9 Hypertensive chronic kidney disease with stage 1 through stage 4 chronic kidney disease, or unspecified chronic kidney disease (principal); I48.19 Other persistent atrial fibrillation; E78.5 Hyperlipidemia, unspecified; E03.9 Hypothyroidism, unspecified; M81.0 Age-related osteoporosis without current pathological fracture; M54.31 Sciatica, right side; N18.2 Chronic kidney disease, stage 2 (mild); E78.00 Pure hypercholesterolemia, unspecified; M46.1 Sacroiliitis, not elsewhere classified; R73.09 Other abnormal glucose; H61.21 Impacted cerumen, right ear; Z95.0 Presence of cardiac pacemaker | CPT/HCPCS: 69210; 96127; 99212 ==

== ENCOUNTER 2025-02-17 10:47 | Outpatient (REF) | payer MEDICARE, SELFPAY ==
[2025-02-17 12:33] LABS: Anion Gap 11 (12-20); Blood Urea Nitrogen 31 mg/dL (9-16); Calcium 10.6 mg/dL (8.4-10.2); Carbon Dioxide 30 mmol/L (22-29); Chloride 98 mmol/L (96-108); Estimated Glomerular Filt Rate 49; Potassium 4.1 mmol/L (3.3-5.1); Sodium 135 mmol/L (135-145)
== END 2025-02-17 10:48 | disposition home or self-care (01) ==
LOC: HO.10HDL 10:47
PROVIDERS: Visit Provider Internal Medicine Hypertension Specialist
DX: N18.2 Chronic kidney disease, stage 2 (mild) (principal); I12.9 Hypertensive chronic kidney disease with stage 1 through stage 4 chronic kidney disease, or unspecified chronic kidney disease
CPT/HCPCS: 36415; 80048

== ENCOUNTER 2025-03-03 09:42 | Outpatient (AMB) | payer MEDICARE, SELFPAY ==
--- NOTE | 2025-03-03 09:42 | HO.NEPHOV_ITS ---
Vital Signs 03/03/25 09:43 03/03/25 09:51 Height 5 ft 1 in Weight 154 lb BMI 29.1 BP 162/110 H 150/100 H Blood Pressure Location Rt brachial Rt brachial Position Sitting Sitting Intake Visit Reasons: 6 MO FU Store Consultant Required: No Accompanied by: Self / Same As Patient Allergies cephalexin (Keflex) Allergy (Unknown, Verified 03/03/25 09:45) rash warfarin Allergy (Unknown, Verified 03/03/25 09:45) rash Medication List - Last Reconciled 03/03/25 by Jason Lopez MD atorvastatin 20 mg PO DAILY 90 days dabigatran etexilate 150 mg PO BID 90 days levothyroxine 25 mcg PO QAM metoprolol succinate ER 200 mg PO DAILY 90 days olmesartan 40 mg PO DAILY spironolacton-hydrochlorothiaz 25-25 mg 0.5 tabs PO DAILY HPI Comments Details: Vonnie elderly woman well known to me. She has a history of hypertension with superimposed white coat effect. She has been monitoring her blood pressure at home. Overall blood pressure seems well controlled at home. In fact some of the readings are rather low and worrisome. Home BP is rather low SBP at 100 10/05/2023. Vonnie is here today because of itching. She has had itching with rash for the last 2 weeks. She is taking triamcinolone cream which seems to be helping. She thinks it could be from the spironolactone. However she has been on spironolactone hydrochlorothiazide for the last 2-3 months. No new medications have been added. During her last visit olmesartan was decreased from 40 mg down to 20 mg a day due to low blood pressure. She is monitoring blood pressure at home systolic blood pressure is still relatively low in the range of 102/103 mm Hg. She is asymptomatic 10/29/23; c/o fatigue; Home BP elevated 11/22/23 ;Home readings are good; Relatively low readings in the afternoon 02/19/24; Currently on Benicar 40 mg half tab in evening along with aldactazide 25/25 Haf tab in AM Home BP is excellent; Occasional low readings After decreasing Jarad with Vit D to QOD due to high Ca of 10.5. repeat CA is normal 06/17/24 Recent cr - bumped to 1.5 on May 22 Here for follow up No new meds 09/08/24 89-year-old female presenting for medication evaluation and follow-up on hypertension management. She indicates stable blood pressure readings at home, noting a recent measurement of 125/85 mmHg, but sometimes as low as 90/65 mmHg without accompanying symptoms such as dizziness or lightheadedness. In-office measurements were slightly elevated, possibly due to anxiety associated with the clinical setting. She is on a diuretic therapy but experiences pruritus potentially linked to this medication, managed with the use of moisturizer. 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 03/03/25 The patient is an 89 year old individual presenting for a follow-up visit for management of hypertension. The patient's blood pressure was 160 on initial check at the office. At home, the patient reports blood pressure readings as high as 150/98 mmHg and 150/100 mmHg, with other readings around 128/82 mmHg, noting anxiety can affect the measurements. The patient reports having back pain, for which the patient has been taking one Tylenol in the morning and one in the evening. The patient notes experiencing exertional intolerance, stating a need to stop and rest while pushing trash cans across a long driveway. The patient reports exercising four days a week. Recent blood work, including kidney function tests, was noted to be good and improved from the last evaluation. Current medications reviewed include Olmesartan, spironolactone, hydrochlorothiazide, metoprolol, Pradaxa, and atorvastatin. [facility] Medical History Osteoarthritis of hips, bilateral Need for prophylactic antibiotic Osteopenia after menopause Actinic keratosis Sick sinus syndrome Persistent atrial fibrillation Acquired hypothyroidism Hyperlipidemia Essential hypertension Surgical History Status post total hip replacement, left History of tonsillectomy Cardiac pacemaker Family History Father Medical history non-contributory Mother Medical history non-contributory Tuberculosis Sister Tuberculosis Son No problems noted. Daughter No problems noted. Son No problems noted. Social History Household Members: None Housing: House Alcohol intake: never Patient Tobacco Use Status: Never used Tobacco e-Cigarette/Vaping Use: Never Used Second Hand Smoke Exposure: No service: No Current occupational status: previously employed and retired Cognitive needs: No Hearing needs: No Vision needs: Yes Physical Exam Vital Signs: Last Vital Signs BP 150/100 H 03/03/25 09:51 BMI result Body Mass Index 29.1 Comfortable Neck supple no JVD. Lungs entry equal no rales. Heart S1-S2 heard no gallop or rub. Abdomen soft nontender. Neuro alert awake oriented. No asterixis. Extremities no edema. Results Reviewed Nephrology Results: Hgb, (12.0-16.0) 15.5 g/dl 12/26/24 WBC, (4.8-10.8) 7.6 X10*3/uL 12/26/24 Plt Count, (160-400) 273 X10*3/uL 12/26/24 Sodium, (135-145) 135 mmol/L 02/17/25 Potassium, (3.3-5.1) 4.1 mmol/L 02/17/25 Chloride, (96-108) 98 mmol/L 02/17/25 Carbon Dioxide, (22-29) 30 mmol/L H 02/17/25 BUN, (9-16) 31 mg/dL H 02/17/25 Creatinine, (0.5-1.4) 1.06 mg/dL 02/17/25 Calcium, (8.4-10.2) 10.6 mg/dL H 02/17/25 Urine Creatinine 211.10 mg/dL 09/09/24 Assessment & Plan Assessment & Plan (1) Essential hypertension: Code(s): I10 - Essential (primary) hypertension Category: Medical Plan: Elderly woman with the longstanding hypertension with superimposed white coat effect. Based on the home blood pressure readings blood pressure is well controlled. 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 There could be a component of BOLA due to hypoperfusion from the combination of high-dose of diuretics/ARB Creatinine at baseline now Orders: Orders Basic Metabolic Panel 4 Months I10 - Essential (primary) hypertension Scribe Plan - Not visible on output: Birgit: [phone] Coding Level of Care Code Est Pt Level 4 (86469) Diagnoses Essential hypertension I10 Stage 2 chronic kidney disease N18.2 Chronic kidney disease stage: stage 2 (mild)
[2025-03-03 09:43] VITALS: BP 162/110; BMI 29.1
[2025-03-03 09:51] VITALS: BP 150/100
--- OUTSIDE RECORDS SUMMARY | 2025-03-03 10:42 | XMS_ITS | Encounter Summary ---
Author Organization [facility] Address [address] [facility] [address] [place] [address] Phone Care Team Providers Care Engineer Intern Name Role Phone Heri Quinonez MD Primary Care Provider +1- [phone] Reason for Visit * Reason Comments Med Refill Encounter Details Date Type Department Care Team (Late st Contact Info) Description 02/27/2023 Refill [facility] [address] [facility] [address] [place] [address] Rocco Kent MD [address] [facility] [address] [place] [address] Social History Tobacco Use Types [...] on filedocumented in this encounter Care Teams Engineer Intern Relationship Specialty Start Date End Date Heri Quinonez MD PCP - General Internal Medicine 07/15/20 documented as of this encounter
--- OUTSIDE RECORDS SUMMARY | 2025-03-03 10:42 | XMS_ITS | Encounter Summary ---
Author Organization [facility] Address [address] [facility] [address] [place] [address] Phone Care Team Providers Care Receptionist Scheduler Name Role Phone Mary JaneSimeon Primary Care Provider +1- [phone] Allison Mckeon MD, MPH Primary Care Provid er Pcp, Unknown Primary Care Provider Unavailabl e Encounter Details Date Type Department Care Team (Late st Contact Info) Description 06/15/2017 Ancillary Orders Non-Invasive Cardiology [address] [place] [address] Lino Koroma MD [address] [place] [address] [email or web address] Sick sinus syndrome Social History Tobacco [...] today's date. Device Check: Device Type: Pacemaker Fraud Representative:Medtronic Battery: 3.1 V Mode: MVPR LRL/URL: 60/120bpm AP: Less than 1% TRAINING PROGRAM MANAGER: 96.9% AF burden: 100% AT/AF: Patient is [...] dysfunction documented in this encounter Care Teams Receptionist Scheduler Relationship Specialty Start Date End Date Mary Jane Simeonjesenia Hopkins DO [address] [place] [address] PCP - General Internal Medicine 06/25/17 09/02/18 Allison Mckeon MD, MPH [address] [place] [address] [email or web address] PCP - General Family Medicine 09/03/18 11/14/20 Pcp, Unknown PCP - General 11/15/20 documented as of this encounter Additional Source Comments The information contained in this document represents components of the legal health record. It is not the complete legal health record.[facility]
--- OUTSIDE RECORDS SUMMARY | 2025-03-03 10:42 | XMS_ITS | Encounter Summary ---
Author Organization [facility] Address [address] [place] [address] [place] [address] Phone Care Team Providers Care Comfort Advisor Name Role Phone Mary JaneSimeon Primary Care Provider +1- [phone] Allison Mckeon MD, MPH Primary Care Provid er Pcp, Unknown Primary Care Provider Unavailabl e Encounter Details Date Type Department Care Team (Late st Contact Info) Description 01/24/2018 Ancillary Orders Non-Invasive Cardiology [address] [place] [address] Lino Koroma MD [address] [place] [address] [email or web address] Sick sinus syndrome Social History [...] * DEVICE CHECK: PPM REMOTE INTERROGATION WITH TELEVISION STATION MANAGER REVIEW (01/24/2018 9:40 AM EDT) Narrative Lino Koroma MD - 01/25/2018 12:58 PM EDT Reason for appointment: Remote pacemaker interrogation HPI: Routine 3 month remote pacemaker interrogation. No device related complaints. Indication for device: SSS. Examination: Device type: Pacemaker Time Cycle Operator: Medtronic Mode: AAIR-DDDR LRL/UPL: 60/120 bpm Mode [...] dysfunction documented in this encounter Care Teams Comfort Advisor Relationship Specialty Start Date End Date Simeon Hinton DO [address] [place] [address] PCP - General Internal Medicine 06/25/17 09/02/18 Allison Mckeon MD, MPH [address] [place] [address] [email or web address] PCP - General Family Medicine 09/03/18 11/14/20 Pcp, Unknown PCP - General 11/15/20 documented as of this encounter Additional Source Comments The information contained in this document represents components of the legal health record. It is not the complete legal health record.[facility]
--- OUTSIDE RECORDS SUMMARY | 2025-03-03 10:42 | XMS_ITS | Encounter Summary ---
Author Organization [facility] Address [address] [place] [address] Phone Care Team Providers Care Drum Maker Name Role Phone Simeon Hinton DO Primary Care Provider +1- [phone] Allison Mckeon MD, MPH Primary Care Provid er Pcp, Unknown Primary Care Provider Unavailabl e Encounter Details Date Type Department Care Team ([facility] st Contact Info) Description 05/28/2018 Ancillary [facility] [address] [place] [address] Lino Koroma MD [address] [place] [address] [email or web address] Social History Tobacco Use Types Packs/Day Years [...] on filedocumented in this encounter Care Teams Drum Maker Relationship Specialty Start Date End Date Simeon Hinton DO [address] [place] [address] PCP - General Internal Medicine 06/25/17 09/02/18 Allison Mckeon MD, MPH [address] [address] [email or web address] PCP - General Family Medicine 09/03/18 11/14/20 Pcp, Unknown PCP - General 11/15/20 documented as of this encounter Additional Source Comments The information contained in this document represents components of the legal health record. It is not the complete legal health record.[facility]
--- OUTSIDE RECORDS SUMMARY | 2025-03-03 10:42 | XMS_ITS | Encounter Summary ---
Author Organization [facility] Address [address] [place] [address] Phone Care Team Providers Care Cell Assembly Pinner Name Role Phone Simeon Hinton DO Primary Care Provider +1- [phone] Allison Mckeon MD, MPH Primary Care Provid er Pcp, Unknown Primary Care Provider Unavailabl e Encounter Details Date Type Department Care Team ([facility] st Contact Info) Description 05/28/2018 Ancillary [facility] [address] [place] [id number] Lino Koroma MD [address] [place] [id number] [email or web address] Social History Tobacco Use Types Packs/Day Years [...] on filedocumented in this encounter Care Teams Cell Assembly Pinner Relationship Specialty Start Date End Date Simeon Hinton DO [address] [place] [address] PCP - General Internal Medicine 06/25/17 09/02/18 Allison Mckeon MD, MPH [address] [address] [email or web address] PCP - General Family Medicine 09/03/18 11/14/20 Pcp, Unknown PCP - General 11/15/20 documented as of this encounter Additional Source Comments The information contained in this document represents components of the legal health record. It is not the complete legal health record.[facility]
--- OUTSIDE RECORDS SUMMARY | 2025-03-03 10:42 | XMS_ITS | Encounter Summary ---
Author Organization [facility] Address [address] [facility] [address] [place] [address] Phone Care Team Providers Care Tube Bender Hand Name Role Phone Allison Mckeon MD, MPH Primary Care Provid er Pcp, Unknown Primary Care Provider Unavailabl e Encounter Details Date Type Department Care Team (Late st Contact Info) Description 11/28/2018 Ancillary Orders Non-Invasive Cardiology [address] [place] [address] Lino Koroma MD [address] [place] [address] [email or web address] Sick sinus syndrome Social History Tobacco Use [...] * DEVICE CHECK: PPM REMOTE INTERROGATION WITH AUDIO VISUAL ARTS DIRECTOR REVIEW (11/28/2018 4:14 PM EDT) Narrative Lino Koroma MD - 11/29/2018 12:19 PM EDT Reason for appointment: Remote pacemaker interrogation HPI: Routine 3 month remote pacemaker interrogation. No device related complaints. Indication for device: SSS. Examination: Device type: Pacemaker End Trimmer: Medtronic Mode: VVIR LRL/UPL: 60/120 bpm High [...] dysfunction documented in this encounter Care Teams Tube Bender Hand Relationship Specialty Start Date End Date Allison Mckeon MD, MPH [address] [place], [place] [id number] [email or web address] PCP - General Family Medicine 09/03/18 11/14/20 Pcp, Unknown PCP - General 11/15/20 documented as of this encounter Additional Source Comments The information contained in this document represents components of the legal health record. It is not the complete legal health record.[facility]
--- OUTSIDE RECORDS SUMMARY | 2025-03-03 10:42 | XMS_ITS | Encounter Summary ---
Author Organization [facility] Address [address] [facility] [address] [place] [address] Phone Care Team Providers Care Policy Cancellation Clerk Name Role Phone Simeon Hinton DO Primary Care Provider +1- [phone] Simeon Hinton DO Primary Care Provider +1- [phone] Allison Mckeon MD, MPH Primary Care Provid er Pcp, Unknown Primary Care Provider Unavailabl e Encounter Details Date Type Department Care Team (Latest Contact Info) Description 01/20/2017 Ancillary Orders [facility] [address] [facility] 3rd Floor, [address] [place] [address] Donte Khanna MD [address] [place] [address] Diagnosis unknown Social History Tobacco Use Types [...] for device: SSS Examination: Device type: Pacemaker Braille Operator: Medtronic Mode: AAIR-DDDR LRL/URL: 60/120 bpm Thresholds, [...] for device: SSS Examination: Device type: Pacemaker Braille Operator: Medtronic Mode: AAIR-DDDR LRL/URL: 60/120 bpm Thresholds, [...] unknown documented in this encounter Care Teams Policy Cancellation Clerk Relationship Specialty Start Date End Date Simeon Hinton DO [address] [place] [address] PCP - General 01/18/17 04/30/17 Simeon Hinton DO [address] [place] [address] PCP - General Internal Medicine 06/25/17 09/02/18 Allison Mckeon MD, MPH [address] [place] [address] [email or web address] PCP - General Family Medicine 09/03/18 11/14/20 Pcp, Unknown PCP - General 11/15/20 documented as of this encounter Additional Source Comments The information contained in this document represents components of the legal health record. It is not the complete legal health record.[facility]
--- OUTSIDE RECORDS SUMMARY | 2025-03-03 10:42 | XMS_ITS | Encounter Summary ---
Author Organization [facility] Address [address] [facility] [address] [place] [address] Phone Care Team Providers Care Plastic Injection Mold Maker Name Role Phone Allison Mckeon MD, MPH Primary Care Provid er Pcp, Unknown Primary Care Provider Unavailabl e Encounter Details Date Type Department Care Team (Late st Contact Info) Description 06/14/2020 [facility] [address] [address] Social History Tobacco Use Types Packs/Day Years [...] on filedocumented in this encounter Care Teams Plastic Injection Mold Maker Relationship Specialty Start Date End Date Allison Mckeon MD, MPH [address] [facility] [address] [place] [address] [email or web address] PCP - General Family Medicine 09/03/18 11/14/20 Pcp, Unknown PCP - General 11/15/20 documented as of this encounter Additional Source Comments The information contained in this document represents components of the legal health record. It is not the complete legal health record.[facility]
--- OUTSIDE RECORDS SUMMARY | 2025-03-03 10:42 | XMS_ITS | Encounter Summary ---
Author Organization [facility] Address [address] [place] [address] Phone Care Team Providers Care Fermentation Operator Name Role Phone Heri Quinonez MD Primary Care Provider +1- [phone] Reason for Visit * Reason Onset Date Comments Med Refill 08/07/2023 Encounter Details Date Type Department Care Team (Late st Contact Info) Description 08/07/2023 Refill [facility] [address] [place] [address] Mildred Fonseca Social History Tobacco [...] on filedocumented in this encounter Care Teams Fermentation Operator Relationship Specialty Start Date End Date Heri Quinonez MD PCP - General Internal Medicine 07/15/20 documented as of this encounter
--- OUTSIDE RECORDS SUMMARY | 2025-03-03 10:42 | XMS_ITS | Clinical Summary ---
Author Organization [facility] Address [address] [address] [address] [place] [address] Phone Care Team Providers Care Digital Specialist Name Role Phone Heri Quinonez MD Primary Care Provider +1- [phone] Allergies Active Allergy Reactions Criticality Noted Date [...] read ing without diagnosis of hypertension 05/20/2020 [facility] current use of anticoagulant 9 Overview (07/14/2020): [...] medication changes today. She follows with her eeo officer for management of her hypertension Hyperlipidemia 03/05/2017 [...] patient's age to complete this topic Insurance [facility] Medicare [facility] Medicare Care Teams Digital Specialist Relationship Specialty Start Date End Date Heri Quinonez MD PCP - General Internal Medicine 07/15/20
--- OUTSIDE RECORDS SUMMARY | 2025-03-03 10:42 | XMS_ITS | Encounter Summary ---
Author Organization [facility] Address [address] [place] [address] [place] [address] Phone Care Team Providers Care Litigation Support Analyst Name Role Phone Mary JaneSimeon Primary Care Provider +1- [phone] Allison Mckeon MD, MPH Primary Care Provid er Pcp, Unknown Primary Care Provider Unavailabl e Encounter Details Date Type Department Care Team (Late st Contact Info) Description 05/28/2018 Ancillary Orders Non-Invasive Cardiology [address] [place] [address] Lino Koroma MD [address] [place] [address] [email or web address] Sick sinus syndrome Social History Tobacco [...] * DEVICE CHECK: PPM REMOTE INTERROGATION WITH COMMERCIAL AIRLINE PILOT REVIEW (05/28/2018 9:37 AM EST) Narrative Lino Koroma MD - 05/29/2018 3:53 PM EST Reason for appointment: Remote pacemaker interrogation HPI: Routine 3 month remote pacemaker interrogation. No device related complaints. Indication for device: SSS. Examination: Device type: Pacemaker Tie Up Worker: Medtronic Mode: AAIR-DDDR LRL/UPL: 60/120 bpm Mode [...] dysfunction documented in this encounter Care Teams Litigation Support Analyst Relationship Specialty Start Date End Date Simeon Hinton DO [address] [place] [address] PCP - General Internal Medicine 06/25/17 09/02/18 Allison Mckeon MD, MPH [address] [place] [address] [email or web address] PCP - General Family Medicine 09/03/18 11/14/20 Pcp, Unknown PCP - General 11/15/20 documented as of this encounter Additional Source Comments The information contained in this document represents components of the legal health record. It is not the complete legal health record.[facility]
--- OUTSIDE RECORDS SUMMARY | 2025-03-03 10:42 | XMS_ITS | Encounter Summary ---
Author Organization [facility] Address [address] [place] [address] Phone Care Team Providers Care Lead Sales Consultant Name Role Phone Simeon Hinton DO Primary Care Provider +1- [phone] Allison Mckeon MD, MPH Primary Care Provid er Pcp, Unknown Primary Care Provider Unavailabl e Encounter Details Date Type Department Care Team ([facility] st Contact Info) Description 06/15/2017 Ancillary [facility] [address] [place] [id number] Lino Koroma MD [address] [place] [id number] [email or web address] Social History Tobacco Use Types Packs/Day Years [...] filedocumented in this encounter Care Teams Lead Sales Consultant Relationship Specialty Start Date End Date Simeon Hinton DO [address] [place] [address] PCP - General Internal Medicine 06/25/17 09/02/18 Allison Mckeon MD, MPH [address] [address] [email or web address] PCP - General Family Medicine 09/03/18 11/14/20 Pcp, Unknown PCP - General 11/15/20 documented as of this encounter Additional Source Comments The information contained in this document represents components of the legal health record. It is not the complete legal health record.[facility]
--- OUTSIDE RECORDS SUMMARY | 2025-03-03 10:42 | XMS_ITS | Encounter Summary ---
Author Organization [facility] Address [address] [facility] [address] [place] [address] Phone Care Team Providers Care Director Of Clinical Education Name Role Phone Simeon Hinton DO Primary Care Provider +1- [phone] Allison Mckeon MD, MPH Primary Care Provid er Pcp, Unknown Primary Care Provider Unavailabl e Encounter Details Date Type Department Care Team (Latest Contact Info) Description 01/10/2018 Transcribe Orders [facility] [address] [place] [address] Jenny Ordoñez MD [address] [facility] [address] [place] [phone] [email or web address] SAPHO syndrome (Primary Dx); Acquired hypothyroidism Social [...] D (TOTAL) 49 30 - 60 ng/mL [facility] Blood 01/10/2018 2:32 PM EDT 01/10/2018 2:37 PM EDT us Jenny Ordoñez MD LAB BLOOD BKR ORDERABL ES Final Result Performing Organization Address [facility]/ZIP Co de Phone Number [address] [address] * (ABNORMAL) TSH with reflex (01/10/2018 2:32 PM EDT) TSH 4.82(H) 0.27 - 4.20 uIU/mL [facility] Blood 01/10/2018 2:32 PM EDT 01/10/2018 2:37 PM EDT us Jenny Ordoñez MD LAB BLOOD BKR ORDERABL ES Final Result Performing Organization Address [facility] Co de Phone Number [address] [address] documented in this encounter Visit Diagnoses Diagnosis SAPHO syndrome- Primary Traumatic spondylopathy Acquired hypothyroidism Unspecified hypothyroidism documented in this encounter Care Teams Director Of Clinical Education Relationship Specialty Start Date End Date Simeon Hinton DO [address] [place] [phone] PCP - General Internal Medicine 06/25/17 09/02/18 Allison Mckeon MD, MPH [address] [place] [address] [email or web address] PCP - General Family Medicine 09/03/18 11/14/20 Pcp, Unknown PCP - General 11/15/20 documented as of this encounter Additional Source Comments The information contained in this document represents components of the legal health record. It is not the complete legal health record.[facility]
--- OUTSIDE RECORDS SUMMARY | 2025-03-03 10:42 | XMS_ITS | Clinical Summary ---
Author Organization [facility] Address [address] [address] Phone Care Team Providers Care Tafe Registrar Name Role Phone Pcp, Unknown Primary Care [...] Active Problems Problem Noted Date Diagnosed Date alf current use of anticoagulant 9 Assessment & [...] medication changes today. She follows with her cut in worker for management of her hypertension Immunizations Immunization [...] this topic Medical Devices Implanted Type Area Recreation Assistant Device Identifier Shelf Expiration Date Model / Serial / Lot Medtronic 5076-45cm Implanted:10/02 by Donte Khanna MD (Quantity not on file) Lead [employer] 5076-45 / [id number] / Medtronic 5076-52cm Implanted:10/02 by Donte Khanna MD (Quantity not on file) Lead [employer] 5076-52 / [id number] / Medtronic Advismargo Gordon [id number] Implanted:10/02 by Donte Khanna MD (Quantity not on file) Pacemaker [employer] ADV[address] DR GORDON [id number] / [id number] / Procedures Procedure Name Priority Date/Time Associated Diagnosis Comments TSH WITH REFLEX Routine 01/10/2018 2:32 PM EDT SAPHO syndrome Acquired hypothyroidism BASIC METABOLIC PANEL (BMP) Routine 01/10/2018 2:32 PM EDT Persistent atrial fibrillation from Last 3 Months or Most Recently Relevant to Health Maintenance Results * (ABNORMAL) TSH with reflex (01/10/2018 2:32 PM EDT) TSH 4.82(H) 0.27 - 4.20 uIU/mL [facility] Blood 01/10/2018 2:32 PM EDT 01/10/2018 2:37 PM EDT us Jenny Ordoñez MD LAB BLOOD BKR ORDERABL ES Final Result Performing Organization Address [facility]/ZIP Co de Phone Number [address] [address] * (ABNORMAL) Basic metabolic panel (01/10/2018 2:32 PM EDT) SODIUM 139 133 - 146 mmol/L [facility] CHLORIDE 96 96 - 108 mmol/L [facility] POTASSIUM 4.0 3.3 - 5.1 mmol/L [facility] CO2 31 21 - 35 mmol/L [facility] BUN 13 6 - 19 mg/dL [facility] CREATININE 0.70 0.5 - 1.5 mg/dL [facility] GLUCOSE 114(H) 70 - 99 mg/dL [facility] CALCIUM 9.6 8.4 - 10.3 mg/dL [facility] EGFR 81 >59 mL/min/1.7 3m2 [facility] Comment:If patient is black, multiply result by 1.159. Estimated glomerular filtration rate calculated using the CKD-EPI equation. ANION GAP 16 10 - 20 mmol/L [facility] Blood 01/10/2018 2:32 PM EDT 01/10/2018 2:37 PM EDT us Lino Koroma MD LAB BLOOD BKR ORDERABLES Final Result [address] [address] from Last 3 Months or Most Recently Relevant to Health Maintenance Insurance MEDICARE PART A & B [employer] SUPPLEMENT MEDICARE PART A & B [employer] MEDEX SUPPLEMENT MEDICARE PART A & B [employer] MEDEX SUPPLEMENT MEDICARE PART A & B [employer] MEDEX SUPPLEMENT MEDICARE PART A & B [employer] MEDEX SUPPLEMENT MEDICARE PART A & B [employer] MEDEX SUPPLEMENT MEDICARE PART A & B [facility] MEDEX SUPPLEMENT MEDICARE PART A & B [employer] SUPPLEMENT MEDICARE PART A & B [employer] SUPPLEMENT Care Teams Tafe Registrar Relationship Specialty Start Date End Date Pcp, Unknown PCP - General 11/15/20 Additional Source Comments The information contained in this document represents components of the legal health record. It is not the complete legal health record.[facility]
--- OUTSIDE RECORDS SUMMARY | 2025-03-03 10:42 | XMS_ITS | Encounter Summary ---
Author Organization [facility] Address [address] [place] [address] Phone Care Team Providers Care Corrugator Machine Operator Name Role Phone Simeon Hinton DO Primary Care Provider +1- [phone] Allison Mckeon MD, MPH Primary Care Provid er Pcp, Unknown Primary Care Provider Unavailabl e Encounter Details Date Type Department Care Team (Late st Contact Info) Description 05/28/2018 Ancillary Orders Non-Invasive Cardiology [address] [place] [address] Lino Koroma MD [address] [place] [address] [email or web address] Social History Tobacco Use Types Packs/Day Years [...] on filedocumented in this encounter Care Teams Corrugator Machine Operator Relationship Specialty Start Date End Date Simeon Hinton DO [address] [place] [address] PCP - General Internal Medicine 06/25/17 09/02/18 Allison Mckeon MD, MPH [address] [address] [email or web address] PCP - General Family Medicine 09/03/18 11/14/20 Pcp, Unknown PCP - General 11/15/20 documented as of this encounter Additional Source Comments The information contained in this document represents components of the legal health record. It is not the complete legal health record.[facility]
--- OUTSIDE RECORDS SUMMARY | 2025-03-03 10:42 | XMS_ITS | Encounter Summary ---
Author Organization [facility] Address [address] [place] [address] Phone Care Team Providers Care Sewing Machine Maintenance Mechanic Name Role Phone Simeon Hinton DO Primary Care Provider +1- [phone] Allison Mckeon MD, MPH Primary Care Provid er Pcp, Unknown Primary Care Provider Unavailabl e Encounter Details Date Type Department Care Team ([facility] Contact Info) Description 01/24/2018 Ancillary [facility] [address] [place] [address] Lino Koroma MD [address] [place] [address] [email or web address] Social History Tobacco Use Types Packs/Day Years [...] on filedocumented in this encounter Care Teams Sewing Machine Maintenance Mechanic Relationship Specialty Start Date End Date Simeon Hinton DO [address] [place] [address] PCP - General Internal Medicine 06/25/17 09/02/18 Allison Mckeon MD, MPH [address] [address] [email or web address] PCP - General Family Medicine 09/03/18 11/14/20 Pcp, Unknown PCP - General 11/15/20 documented as of this encounter Additional Source Comments The information contained in this document represents components of the legal health record. It is not the complete legal health record.[facility]
--- OUTSIDE RECORDS SUMMARY | 2025-03-03 10:43 | XMS_ITS | Encounter Summary ---
Author Organization [facility] Address [address] [facility] [address] [place] [address] Phone Care Team Providers Care Mule Spinner Name Role Phone Allison Mckeon MD, MPH Primary Care Provid er Pcp, Unknown Primary Care Provider Unavailabl e Encounter Details Date Type Department Care Team (Late st Contact Info) Description 02/07/2020 Procedure Pass Non-Invasive Cardiology [address] [place] [address] Social History Tobacco Use Types Packs/Day Years [...] on filedocumented in this encounter Care Teams Mule Spinner Relationship Specialty Start Date End Date Allison Mckeon MD, MPH [address] [facility] [address] [place] [address] [email or web address] PCP - General Family Medicine 09/03/18 11/14/20 Pcp, Unknown PCP - General 11/15/20 documented as of this encounter Additional Source Comments The information contained in this document represents components of the legal health record. It is not the complete legal health record.[facility]
--- OUTSIDE RECORDS SUMMARY | 2025-03-03 10:43 | XMS_ITS | Encounter Summary ---
Author Organization [facility] Address [address] [facility] [address] [place] [address] Phone Care Team Providers Care Resin Remover Name Role Phone Allison Mckeon MD, MPH Primary Care Provid er Pcp, Unknown Primary Care Provider Unavailabl e Encounter Details Date Type Department Care Team (Late st Contact Info) Description 03/07/2019 Ancillary Orders Non-Invasive Cardiology [address] [place] [address] Lino Koroma MD [address] [place] [address] [email or web address] Sick sinus syndrome Social History Tobacco [...] * DEVICE CHECK: PPM REMOTE INTERROGATION WITH THEATRICAL VARIETY AGENT REVIEW (03/25/2019 10:00 AM EST) Narrative Lino Koroma MD - 03/27/2019 2:21 PM EST Reason for appointment: Remote pacemaker interrogation HPI: Routine 3 month remote pacemaker interrogation. No device related complaints. Indication for device: SSS. Examination: Device type: Pacemaker Evp Strategy: Medtronic Mode: VVIR LRL/UPL: 60/120 bpm High [...] dysfunction documented in this encounter Care Teams Resin Remover Relationship Specialty Start Date End Date Allison Mckeon MD, MPH [address] [place], [place] [id number] [email or web address] PCP - General Family Medicine 09/03/18 11/14/20 Pcp, Unknown PCP - General 11/15/20 documented as of this encounter Additional Source Comments The information contained in this document represents components of the legal health record. It is not the complete legal health record.[facility]
--- OUTSIDE RECORDS SUMMARY | 2025-03-03 10:43 | XMS_ITS | Encounter Summary ---
Author Organization [facility] Address [address] [facility] [address] [place] [address] Phone Care Team Providers Care Telegraph Repeater Installer Name Role Phone Allison Mckeon MD, MPH Primary Care Provid er Pcp, Unknown Primary Care Provider Unavailabl e Encounter Details Date Type Department Care Team (Late st Contact Info) Description 11/28/2018 Ancillary Orders [facility] [address] [place] [address] Lino Koroma MD [address] [place] [address] [email or web address] Social History Tobacco Use Types Packs/Day Years [...] on filedocumented in this encounter Care Teams Telegraph Repeater Installer Relationship Specialty Start Date End Date Allison Mckeon MD, MPH [address] [facility] [address] [place] [address] PCP - General Family Medicine 09/03/18 11/14/20 Pcp, Unknown PCP - General 11/15/20 documented as of this encounter Additional Source Comments The information contained in this document represents components of the legal health record. It is not the complete legal health record.[facility]
== END 2025-03-03 09:54 | disposition home or self-care (01) ==
LOC: HO.HKA 09:43
PROVIDERS: PCP Physician Assistant; Visit Provider Internal Medicine Hypertension Specialist
DX: I12.9 Hypertensive chronic kidney disease with stage 1 through stage 4 chronic kidney disease, or unspecified chronic kidney disease (principal); N18.2 Chronic kidney disease, stage 2 (mild)
CPT/HCPCS: 99214

== ENCOUNTER → 2025-03-03 09:42 | Outpatient (BNVA) | payer MEDICARE, SELFPAY | PROVIDERS: PCP Physician Assistant; Visit Provider Internal Medicine Hypertension Specialist | DX: I12.9 Hypertensive chronic kidney disease with stage 1 through stage 4 chronic kidney disease, or unspecified chronic kidney disease (principal); N18.2 Chronic kidney disease, stage 2 (mild) | CPT/HCPCS: 99212 ==